=== PATIENT | male | born 1940 | race Caucasian/White ===

== ENCOUNTER 2017-02-23 10:32 | Emergency (ER) | payer MEDICARE, MEDICAID ==
[2017-02-23] MEDS ORDERED: Sodium Chloride 0.9% 500 ML IV ONE ×2 (13:15→13:26)
[2017-02-23 13:39] LABS: BASO # 0.1 K/uL (0.0-0.2); BASO % 1.8 % (0.0-2.0); EOS # 0.1 K/uL (0.0-0.7); EOS % 2.4 % (0.0-4.0); HEMATOCRIT 22.6 % (35.0-51.0); LYMPH # 0.9 K/uL (1.0-4.3); LYMPH % 30.1 % (20.0-40.0); MEAN CORPUSCULAR HEMOGLOBIN 22.8 pg (27.0-31.0); MEAN CORPUSCULAR HGB CONC 30.9 g/dL (33.0-37.0); MEAN PLATELET VOLUME 9.5 fL (7.2-11.7); MONO # 0.4 K/uL (0.0-0.8); MONO % 12.7 % (0.0-10.0); NRBC % 0.2 % (0.0-2.0); RED CELL DISTRIBUTION WIDTH 16.8 % (11.5-14.5); WHITE BLOOD COUNT 2.9 K/uL (4.8-10.8)
[2017-02-23 13:46] LABS: CHLORIDE 100 mmol/L (98-107); POTASSIUM 3.5 mmol/L (3.6-5.2); SODIUM 136 mmol/L (132-148)
[2017-02-23 13:48] LABS: BILIRUBIN,TOTAL 1.6 mg/dL (0.2-1.3); CARBON DIOXIDE 21 mmol/L (22-30); GFR AFRICAN-AMERICAN > 60
[2017-02-23 13:49] LABS: ALB/GLOB RATIO 1.1 (1.0-2.1); ALKALINE PHOSPHATASE 174 U/L (38-126); ALT/SGPT 48 U/L (21-72); AST/SGOT 59 U/L (17-59); BLOOD UREA NITROGEN 14 mg/dL (9-20); CALCIUM 9.1 mg/dl (8.6-10.4); GLUCOSE,RANDOM 128 mg/dL (75-110); TOTAL PROTEIN 6.8 g/dL (6.3-8.3)
[2017-02-23 13:52] LABS: MEAN CELL VOLUME 73.6 fL (80.0-94.0)
--- NOTE | 2017-02-23 15:14 | C.PDOC ---
History Of Present Illness 76 y/o male presents to the ED for evaluation of anemia. Pt was seen for routine visit in clinic last week, follow up today instructing patient to go to ED for evaluation of anemia; H&H 7.3 and 22.6. Pt denies known source of bleeding. Pt reports associated mild weakness. Denies vomiting, rectal bleed, SOB, chest pain, palpitations or any other complaints. Time Seen by Provider: 02/23/17 12:05 Chief Complaint (Nursing): Dizziness/Lightheaded History Per: Patient History/Exam Limitations: no limitations Onset/Duration Of Symptoms: Days Current Symptoms Are (Timing): Still Present Severity: Mild Recent travel outside of the [place]: No Past Medical History Reviewed: Historical Data, Nursing Documentation, Vital Signs Vital Signs: Last Vital Signs Temp 97.8 F 02/23/17 14:50 Pulse 83 02/23/17 14:50 Resp 20 02/23/17 14:50 BP 102/58 L 02/23/17 14:50 Pulse Ox 100 02/23/17 15:16 - Medical History PMH: Anemia, Anxiety, Benign Prostatic Hyperplasia, Diabetes, HTN, Hypercholesterolemia Family History: States: Unknown Family Hx - Social History Hx Tobacco Use: No Hx Alcohol Use: No Hx Substance Use: No - Immunization History Hx Tetanus Toxoid Vaccination: No Hx Influenza Vaccination: No Hx Pneumococcal Vaccination: No Review Of Systems Except As Marked, All Systems Reviewed And Found Negative. Constitutional: Positive for: Weakness. Negative for: Fever Cardiovascular: Negative for: Chest Pain, Palpitations Respiratory: Negative for: Shortness of Breath Gastrointestinal: Negative for: Vomiting, Hematochezia, Hematemesis Physical Exam - Physical Exam Appears: Non-toxic, No Acute Distress Skin: Warm, Dry, Pale Head: Atraumatic, Normacephalic Eye(s): bilateral: Conjunctiva Pale Nose: Normal Oral Mucosa: Moist Neck: Normal, Normal ROM, Supple Chest: Symmetrical Cardiovascular: Rhythm Regular, No Murmur Respiratory: Normal Breath Sounds, No Rales, No Rhonchi, No Wheezing Gastrointestinal/Abdominal: Normal Exam, Soft, No Tenderness Rectal: Normal Exam, Heme Negative Extremity: Normal ROM Extremity: Bilateral: Atraumatic Neurological/Psych: Oriented x3, Normal Speech ED Course And Treatment - Laboratory Results Result Diagrams: 02/23/17 13:32 05/09/17 13:32 O2 Sat by Pulse Oximetry: 100 (room air) Pulse Ox Interpretation: Normal Medical Decision Making Medical Decision Making: Labs show anemia. Spoke with Dr. Meléndez from [facility] . States the patient was c/o nose bleed this week as well as slightly dizzy this morning. Disposition Discussed With DrDamian: Juventino Mercer Counseled Patient/Family Regarding: Studies Performed, Diagnosis - Disposition Disposition: HOME/ ROUTINE Disposition Time: 15:48 Condition: GUARDED - POA Present On Arrival: None - Clinical Impression Clinical Impression: Dizziness, Anemia - Scribe Statement The provider has reviewed the documentation as recorded by the Long Enriquez Provider Attestation: All medical record entries made by the Long were at my direction and personally dictated by me. I have reviewed the chart and agree that the record accurately reflects my personal performance of the history, physical exam, medical decision making, and the department course for this patient. I have also personally directed, reviewed, and agree with the discharge instructions and disposition. Decision To Admit - Pt Status Changed To: Hospital Disposition Of: Observation - InPatient: Physician Admission Certification: I certify that this patient requires 2 or more midnights of care for the following reason:: symptomatic anemia, will transfuse. - . Bed Request Type: Regular Patient Diagnosis: Dizziness, Anemia
[2017-02-23 16:18] VITALS: RESP 18
[2017-02-23 16:20] VITALS: BP 118/63; PULSE 86; TEMP 98.3; O2SAT 98
== END 2017-02-23 17:22 | disposition left against medical advice (07) ==
LOC: C.ER 10:32 → UNDOADMOB 15:51 → C.9E 15:51 → C.ER 17:22
DX: D64.9 Anemia, unspecified (principal); R42 Dizziness and giddiness
CPT/HCPCS: 80053; 82948; 85025; 86850; 86900; 86920; 99285; J7040

== ENCOUNTER 2017-03-26 06:34 | Inpatient (IN) | payer OTHER ==
[2017-03-26 07:55] LABS: BASO # 0.1 K/uL (0.0-0.2); BASO % 2.8 % (0.0-2.0); EOS # 0.4 K/uL (0.0-0.7); EOS % 13.9 % (0.0-4.0); HEMATOCRIT 24.6 % (35.0-51.0); LYMPH # 0.8 K/uL (1.0-4.3); LYMPH % 26.8 % (20.0-40.0); MEAN CELL VOLUME 72.8 fL (80.0-94.0); MEAN CORPUSCULAR HEMOGLOBIN 22.6 pg (27.0-31.0); MEAN CORPUSCULAR HGB CONC 31.1 g/dL (33.0-37.0); MEAN PLATELET VOLUME 8.9 fL (7.2-11.7); MONO # 0.4 K/uL (0.0-0.8); NRBC % 0.1 % (0.0-2.0); RED CELL DISTRIBUTION WIDTH 23.1 % (11.5-14.5); WHITE BLOOD COUNT 3.1 K/uL (4.8-10.8)
[2017-03-26 08:02] LABS: INR 1.4
[2017-03-26 08:05] LABS: CHLORIDE 102 mmol/L (98-107); POTASSIUM 3.6 mmol/L (3.6-5.2); SODIUM 137 mmol/L (132-148)
[2017-03-26 08:07] LABS: GFR AFRICAN-AMERICAN > 60
[2017-03-26 08:08] LABS: ALKALINE PHOSPHATASE 207 U/L (38-126); ALT/SGPT 46 U/L (21-72); AST/SGOT 61 U/L (17-59); BILIRUBIN,TOTAL 1.6 mg/dL (0.2-1.3); BLOOD UREA NITROGEN 10 mg/dL (9-20); CALCIUM 9.1 mg/dl (8.6-10.4); CARBON DIOXIDE 21 mmol/L (22-30); GLUCOSE,RANDOM 187 mg/dL (75-110); TOTAL PROTEIN 6.6 g/dL (6.3-8.3)
[2017-03-26 08:17] LABS: RBC URINE 1 /hpf (0-3); URINE BACTERIA RARE (<OCC); URINE BILIRUBIN NEGATIVE (NEGATIVE); URINE BLOOD NEGATIVE (NEGATIVE); URINE COLOR Yellow (YELLOW); URINE GLUCOSE (UA) NORMAL (Normal); URINE KETONE NEGATIVE (NEGATIVE); URINE LEUKOCYTE ESTERASE NEG Leu/uL (Negative); URINE PROTEIN NEGATIVE (NEGATIVE); WBC URINE 2 /hpf (0-5)
[2017-03-26 08:25] LABS: IRON 13 ug/dL (49-181)
--- NOTE | 2017-03-26 08:26 | C.PDOC ---
History Of Present Illness Patient is a 76 y/o male sent to the ED by PMD for low hemoglobin level (7 g/dl) . Pt was seen here last month with similar complaints, and hemoglobin at that time was 7 g/dl as well. Pt had declined to be admitted, and did not follow up with his PMD at that time. Pt states that he felt weak, and dizzy 3 weeks ago, and had fell at that time. Denies any head injury, or LOC. Otherwise, denies any weight loss, abdominal pain, lightheadedness, dizziness, headache, fever, or any other physical complaints at this time. Time Seen by Provider: 03/26/17 07:17 Chief Complaint (Nursing): Abnormal Labs History Per: Patient History/Exam Limitations: no limitations Onset/Duration Of Symptoms: Days Current Symptoms Are (Timing): Still Present Reports Recently: Treated By A Physician Recent travel outside of the [place]: No Additional History Per: Patient, Prior Records Past Medical History Reviewed: Historical Data, Nursing Documentation, Vital Signs Vital Signs: Last Vital Signs Temp 97.9 F 03/26/17 15:34 Pulse 98 H 03/26/17 15:34 Resp 20 03/26/17 15:34 BP 121/65 03/26/17 15:34 Pulse Ox 98 03/26/17 16:53 - Medical History PMH: Anemia, Anxiety, Benign Prostatic Hyperplasia, Diabetes, HTN, Hypercholesterolemia Family History: States: Unknown Family Hx - Social History Hx Tobacco Use: No Hx Alcohol Use: Yes Hx Substance Use: No Review Of Systems Except As Marked, All Systems Reviewed And Found Negative. Constitutional: Negative for: Fever, Chills Cardiovascular: Negative for: Chest Pain, Palpitations, Light Headedness Respiratory: Negative for: Shortness of Breath Gastrointestinal: Negative for: Nausea, Vomiting, Abdominal Pain Neurological: Negative for: Headache, Dizziness Physical Exam - Physical Exam Appears: Non-toxic, No Acute Distress Skin: Normal Color, Warm, Dry Head: Atraumatic, Normacephalic Eye(s): bilateral: Normal Inspection Neck: Supple Chest: Symmetrical Cardiovascular: Rhythm Regular Respiratory: Normal Breath Sounds, No Rales, No Rhonchi, No Wheezing Gastrointestinal/Abdominal: Soft, No Tenderness Extremity: Normal ROM Neurological/Psych: Oriented x3, Normal Speech, Normal Cognition ED Course And Treatment - Laboratory Results Result Diagrams: 03/26/17 07:47 03/26/17 07:47 ECG: Interpreted By Me, Viewed By Me ECG Rhythm: Sinus Rhythm ECG Interpretation: No Acute Changes Interpretation Of ECG: Low voltage QRS. Rate From EC (bpm) O2 Sat by Pulse Oximetry: 98 (on RA) Pulse Ox Interpretation: Normal Progress Note: Labs, CXR, EKG ordered and reviewed. On re-exam, pt is resting comfortably, no physical complaints at this time. Medical Decision Making Medical Decision Making: Pt remained stable in the ED Case discussed with dr Mccabe Plan transfusion / observation Disposition - Disposition Disposition: HOSPITALIZED Disposition Time: 10:45 Condition: GOOD - Clinical Impression Clinical Impression: Symptomatic anemia - Scribe Statement The provider has reviewed the documentation as recorded by the Scribe Marco Mercer All medical record entries made by the Hamiltonibe were at my direction and personally dictated by me. I have reviewed the chart and agree that the record accurately reflects my personal performance of the history, physical exam, medical decision making, and the department course for this patient. I have also personally directed, reviewed, and agree with the discharge instructions and disposition.
[2017-03-26 09:12] LABS: FOLATE 6.1 ng/mL
--- NOTE | 2017-03-26 10:23 | RAD ---
HISTORY: GI Bleeding COMPARISON: 10/12/2013 TECHNIQUE: Chest PA and lateral FINDINGS: LUNGS: Patchy right lower lobe opacity, possibly early infiltrate. Followup advised. PLEURA: No significant pleural effusion identified. No pneumothorax apparent. CARDIOVASCULAR: Normal. OSSEOUS STRUCTURES: No significant abnormalities. VISUALIZED UPPER ABDOMEN: Normal. OTHER FINDINGS: None. IMPRESSION: Possible right lower lobe infiltrate. Followup advised.
[2017-03-26] MEDS ORDERED: Ferric Sodium Gluconat Complex 62.5 mg/5 ml Vial IVPB SCH (11:15)
[2017-03-26] MEDS ORDERED: Azithromycin 500 MG in Sodium Chloride 0.9% 250 ML IVPB STA (11:17)
[2017-03-26] MEDS ORDERED: Azithromycin 500 MG in Sodium Chloride 0.9% 250 ML IVPB SCH (12:00)
[2017-03-26] MEDS: Ferric Sodium Gluconat Complex 62.5 mg/5 ml Vial IVPB SCH (13:07)
[2017-03-26] MEDS: Dextrose 5%/0.9% NS 1,000 ML IV SCH ×2 (14:05→22:30)
[2017-03-26] MEDS: Albuterol 0.042% Inhal Sol (1.25 mg/3 mL) UD INH SCH ×2 (14:59→20:53)
[2017-03-26 15:27] LABS: CARCINOEMBRYONIC ANTIGEN 2.4 ng/mL (0-3.0)
[2017-03-26 15:30] LABS: CA 19-9 77.8 U/mL (0-37)
[2017-03-26] MEDS: Azithromycin 500 MG in Sodium Chloride 0.9% 250 ML IVPB SCH (16:02)
[2017-03-27] MEDS: Albuterol 0.042% Inhal Sol (1.25 mg/3 mL) UD INH SCH ×4 (01:18→19:25)
[2017-03-27] MEDS ORDERED: Phytonadione 10 mg/ml Inj (Adult) SC STA (08:28)
[2017-03-27 09:20] LABS: HEMATOCRIT 25.7 % (35.0-51.0); MEAN CELL VOLUME 73.4 fL (80.0-94.0); MEAN CORPUSCULAR HEMOGLOBIN 23.3 pg (27.0-31.0); MEAN CORPUSCULAR HGB CONC 31.8 g/dL (33.0-37.0); RED CELL DISTRIBUTION WIDTH 22.3 % (11.5-14.5); WHITE BLOOD COUNT 2.9 K/uL (4.8-10.8)
[2017-03-27 09:21] LABS: BASO % 1.1 % (0.0-2.0); EOS % 4.7 % (0.0-4.0); LYMPH % 22.6 % (20.0-40.0); MONO % 10.6 % (0.0-10.0)
[2017-03-27 09:22] LABS: LYMPH # 22.6 K/uL (1.0-4.3); MONO # 10.6 K/uL (0.0-0.8)
[2017-03-27 09:23] LABS: BASO # 1.1 K/uL (0.0-0.2); EOS # 4.7 K/uL (0.0-0.7)
[2017-03-27] MEDS: Ferric Sodium Gluconat Complex 62.5 mg/5 ml Vial IVPB SCH (09:34)
[2017-03-27 12:30] LABS: CARCINOEMBRYONIC ANTIGEN 2.5 ng/mL (0-3.0)
[2017-03-27 12:34] LABS: CA 19-9 81.4 U/mL (0-37)
[2017-03-27] MEDS: Azithromycin 500 MG in Sodium Chloride 0.9% 250 ML IVPB SCH (13:09)
[2017-03-27] MEDS: Dextrose 5%/0.9% NS 1,000 ML IV SCH ×3 (13:13→22:24)
--- NOTE | 2017-03-27 18:22 | CP.PCM.HP ---
History of Present Illness - History of Present Illness History of Present Illness: Cheif complain: abnormal labs HPI: Patient is a 76 y/o male sent to the ED by PMD for low hemoglobin level (7 g/dl). Pt was seen here last month with similar complaints, and hemoglobin at that time was 7 g/dl as well. Pt had declined to be admitted, and did not follow up with his PMD at that time. Pt states that he felt weak, and dizzy 3 weeks ago, and had fell at that time. Denies any head injury, or LOC. Otherwise, denies any weight loss, abdominal pain, lightheadedness, dizziness, headache, fever, or any other physical complaints at this time. Present on Admission - Present on Admission Any Indicators Present on Admission: Yes History of DVT/PE: No History of Uncontrolled Diabetes: No Urinary Catheter: No Review of Systems - Review of Systems Systems not reviewed;Unavailable: Acuity of Condition - Constitutional Constitutional: Fatigue, Lethargy, Malaise - EENT Eyes: absent: As Per HPI, Blind Spots, Blurred Vision, Change in Vision, Decreased Night Vision, Diplopia, Discharge, Dry Eye, Exophthalmos, Floaters, Irritation, Itchy Eyes, Loss of Peripheral Vision, Pain, Photophobia, Requires Corrective Lenses, Sees Flashes, Spots in Vision, Tunnel Vision, Other Visual Disturbances, Loss of Vision, Other Nose/Mouth/Throat: absent: As Per HPI, Epistaxis, Nasal Congestion, Nasal Discharge, Nasal Obstruction, Nasal Trauma, Nose Pain, Post Nasal Drip, Sinus Pain, Sinus Pressure, Bleeding Gums, Change in Voice, Dental Pain, Dry Mouth, Dysphagia, Halitosis, Hoarsness, Lip Swelling, Mouth Lesions, Mouth Pain, Odynophagia, Sore Throat, Throat Swelling, Tongue Swelling, Facial Pain, Neck Pain, Neck Mass, Other - Cardiovascular Cardiovascular: Dyspnea on Exertion - Respiratory Respiratory: Dyspnea on Exertion - Gastrointestinal Gastrointestinal: Abdominal Pain - Genitourinary Genitourinary: absent: As Per HPI, Change in Urinary Stream, Difficulty Urinating, Dysuria, Flank Pain, Hematuria, Pyuria, Nocturia, Urinary Incontinence, Urinary Frequency, Urinary Hesitance, Urinary Urgency, Voiding Freq/Small Amts, Freq UTI, Hx Renal/Bladder Calculi, Hx /Renal Surgery, Bladder Distension, Other - Neurological Neurological: Dizziness. absent: As Per HPI, Abnormal Gait, Abnormal Hearing, Abnormal Movements, Abnormal Speech, Behavioral Changes, Burning Sensations, Confusion, Convulsions, Disequilibrium, Numbness, Focal Weakness, Frequent Falls , Headaches, Lack of Coordination, Loss of Vision, Memory Loss, Paresthesias, Radicular Pain, Restless Legs, Sensory Deficit, Syncope, Tingling, Tremor, Vertigo, Weakness, Other Visual Disturbances, Other - Psychiatric Psychiatric: absent: As Per HPI, Abnormal Sleep Pattern, Anhedonia, Anxiety, Auditory Hallucinations, Behavioral Changes, Change in Appetite, Change in Libido, Confusion, Depression, Difficulty Concentrating, Hallucinations, Homicidal Ideation, Hopelessness, Irritability, Memory Loss, Mood Swings, Panic Attacks, Paranoia, Suicidal Ideation, Visual Hallucinations, Tactile Hallucinations, Other - Endocrine Endocrine: absent: As Per HPI, Change in Body Appearance, Change in Libido, Cold Intolorance, Deepening of Voice, Excessive Sweating, Fatigue, Flushing, Heat Intolorance, Increase in Ring/Shoe/Hat Size, Palpitations, Polydipsia, Polyphagia, Polyuria, Other - Hematologic/Lymphatic Hematologic: absent: As Per HPI, Easy Bleeding, Easy Bruising, Lymphadenopathy, Other Past Patient History - Infectious Disease Hx of Infectious Diseases: None - Past Medical History & Family History Past Medical History?: No - Past Social History Smoking Status: Former Smoker - CARDIAC Hx Hypercholesterolemia: Yes Hx Hypertension: Yes - HEENT Hx HEENT Problems: Yes Hx Epistaxis: Yes - ENDOCRINE/METABOLIC Hx Endocrine Disorders: Yes Hx Diabetes Mellitus Type 2: Yes - HEMATOLOGICAL/ONCOLOGICAL Hx Anemia: Yes - MUSCULOSKELETAL/RHEUMATOLOGICAL Hx Falls: No - GENITOURINARY/GYNECOLOGICAL Hx Genitourinary Disorders: Yes Hx Prostate Problems: Yes - PSYCHIATRIC Hx Anxiety: Yes Hx Substance Use: No - SURGICAL HISTORY Hx Surgeries: No Other/Comment: Prostate sx - ANESTHESIA Hx Anesthesia: No Meds Allergies/Adverse Reactions: Allergies Allergy/AdvReac Type Severity Reaction Status Date / Time No Known Allergies Allergy Verified 03/26/17 06:48 Physical Exam - Constitutional Additional comments: elderly male who is weak, pale - Head Exam Head Exam: ATRAUMATIC, NORMAL INSPECTION, NORMOCEPHALIC - Eye Exam Eye Exam: EOMI, Normal appearance, PERRL Pupil Exam: NORMAL ACCOMODATION, PERRL - Respiratory Exam Respiratory Exam: NORMAL BREATHING PATTERN Additional comments: positive crackles in right base - Cardiovascular Exam Cardiovascular Exam: REGULAR RHYTHM - GI/Abdominal Exam GI & Abdominal Exam: Hyperactive Bowel Sounds, Tenderness Additional comments: periumbilical area tenderness - Extremities Exam Extremities exam: Positive for: normal inspection - Back Exam Back exam: NORMAL INSPECTION Results - Vital Signs Recent Vital Signs: Last Vital Signs Temp 98.2 F 03/27/17 15:10 Pulse 99 H 03/27/17 15:10 Resp 20 03/27/17 15:10 BP 127/69 03/27/17 15:10 Pulse Ox 96 03/27/17 15:10 - Labs Result Diagrams: 03/27/17 08:41 03/26/17 07:47 Assessment & Plan (1) Right lower lobe pneumonia Status: Acute (2) Symptomatic anemia Assessment and Plan: admit GI consult FOBT Status: Acute (3) Dizziness Status: Acute
--- NOTE | 2017-03-27 18:22 | CP.PCM.PN ---
Subjective - Date & Time of Evaluation Date of Evaluation: 03/27/17 Time of Evaluation: 21:45 - Subjective Subjective: Pt seen and examined, still c/o dyspnea on exertion, s/p blood transfusion, GI consult requested Objective - Vital Signs/Intake and Output Vital Signs (last 24 hours): Temp Pulse Resp BP Pulse Ox 98.2 F 99 H 20 127/69 96 03/27/17 15:10 03/27/17 15:10 03/27/17 15:10 03/27/17 15:10 03/27/17 15:10 Intake and Output: 03/27/17 03/27/17 06:59 18:59 Intake Total 980 Balance 980 - Medications Medications: Current Medications Albuterol Sulfate (Albuterol 0.042% Inhal Sasha (1.25mg/3ml) Ud) 1.25 mg INH RQ6 [facility] Last Admin: 03/27/17 12:59 Dose: Not Given Bisacodyl (Dulcolax) 10 mg PO ONCE ONE Stop: 03/28/17 17:01 Ferric Sodium Gluconate Complex (Ferrlecit) 125 mg IVPB DAILY [facility] Stop: 04/02/17 10:01 Last Admin: 03/27/17 09:34 Dose: 125 mg Dextrose/Sodium Chloride (Dextrose 5%/0.9% Ns 1000 Ml) 1,000 mls @ 100 mls/hr IV .Q10H [facility] Last Admin: 03/27/17 17:59 Dose: Not Given Ceftriaxone Sodium 1 gm/ (Sodium Chloride) 100 mls @ 100 mls/hr IVPB Q24H [facility] Last Admin: 03/27/17 14:02 Dose: 100 mls/hr Azithromycin 500 mg/ Sodium (Chloride) 250 mls @ 250 mls/hr IVPB Q24H [facility] Last Admin: 03/27/17 13:09 Dose: 250 mls/hr Pantoprazole Sodium (Protonix Inj) 40 mg IVP Q12H [facility] Last Admin: 03/27/17 11:42 Dose: 40 mg Polyethylene Glycol/Electrolytes (Golytely) 4,000 ml PO ONCE ONE Stop: 03/28/17 11:01 - Labs Labs: PT 16.4 SECONDS (9.7-12.2) H 03/26/17 07:47 INR 1.4 03/26/17 07:47 APTT 36 SECONDS (21-34) H 03/26/17 07:47 - Constitutional Appears: No Acute Distress - Head Exam Head Exam: NORMAL INSPECTION - Eye Exam Eye Exam: EOMI, Scleral icterus - ENT Exam ENT Exam: Mucous Membranes Moist, Normal Exam - Respiratory Exam Respiratory Exam: Clear to Ausculation Bilateral, NORMAL BREATHING PATTERN - Cardiovascular Exam Cardiovascular Exam: REGULAR RHYTHM, +S1, +S2. absent: Murmur - GI/Abdominal Exam GI & Abdominal Exam: Tenderness, Hyperactive Bowel Sounds - Rectal Exam Rectal Exam: NORMAL INSPECTION Assessment and Plan (1) Right lower lobe pneumonia Status: Acute (2) Symptomatic anemia Status: Acute (3) Dizziness Status: Acute
[2017-03-27] MEDS ORDERED: (Novolin R) Insulin Human Regular 100 units/ml vial SC SCH (22:00)
[2017-03-27] MEDS: (Novolog) Insulin Aspart, Recombinant 100 u/ml 10 ml vial SC SCH (22:18)
[2017-03-28] MEDS: Albuterol 0.042% Inhal Sol (1.25 mg/3 mL) UD INH SCH ×4 (01:22→19:17)
[2017-03-28] MEDS: (Novolog) Insulin Aspart, Recombinant 100 u/ml 10 ml vial SC SCH ×4 (08:04→22:03)
[2017-03-28] MEDS: Dextrose 5%/0.9% NS 1,000 ML IV SCH (09:18)
[2017-03-28] MEDS: Ferric Sodium Gluconat Complex 62.5 mg/5 ml Vial IVPB SCH (09:53)
[2017-03-28] MEDS ORDERED: Peg-Electrolyte Oral Soln 4L (Golytely) PO ONE (11:00)
--- NOTE | 2017-03-28 12:04 | PN ---
DATE: 03/28/2017 LOCATION: 651, bed B. SUBJECTIVE: This is a [id number] male seen and examined at rounds today without significant clinic al changes. Appears to be awake, alert, oriented with complaint of some blurred vision and mild gene ralized tenderness. No mass or organomegaly. No rebound tenderness or guarding by physical examinat ion. The entire chart is reviewed, including but not limited to the most recent lab and radiology st udy results, current and the previous medication list, current and the previous medical events, and t he patient still has hypochromic microcytic anemia with pancytopenia with blood glucose level of 212 with increased CA 19-9 to 81.4, but normal CEA level and normal alpha fetoprotein. The entire chart is reviewed, and the entire case is discussed and reviewed with the staff on the jay or. PHYSICAL EXAMINATION: GENERAL: A 76-year-old male, awake, alert. VITAL SIGNS: Afebrile with pulse of 96, respiratory rate 20-22, blood pressure of 130/64. HEENT: Showed pale, dry oral mucoid membrane. Nonicteric sclerae. LUNGS: Few scattered crepitations, decreased air entry at bases. HEART: Positive S1 and S2. ABDOMEN: Soft. Bowel sounds are present. No mass or organomegaly. No rebound tenderness or guardi ng. EXTREMITIES: Without significant edema, clubbing, or cyanosis. NEUROLOGIC: No reported new neurologic deficits, sensory or motor. IMPRESSION: 1. Anemia, to rule out gastrointestinal blood loss, upper versus lower. 2. Rule out occult gastrointestinal malignancy. 3. Known history of, but not limited to hypertension, hyperlipidemia, diabetes mellitus, and benign prostatic hypertrophy. SUGGESTION: 1. I agree with your plan. 2. Blood transfusion to keep hemoglobin 10 gram percent. 3. Abdominal ultrasound. 4. Continue current IV antibiotic, as the chest x-ray showed possible right lower lobe infiltrate. 5. Further recommendation to follow after endoscopic evaluation of the GI tract. Karin Jesus MD cc: 14 TT: 03/28/2017 12:04:01 Confirmation # [id number] Dictation # [id number] [email or web address]
[2017-03-28] MEDS: Azithromycin 500 MG in Sodium Chloride 0.9% 250 ML IVPB SCH (13:23)
[2017-03-28] MEDS ORDERED: Bisacodyl 5mg EC Tab PO ONE (17:00)
--- NOTE | 2017-03-28 23:13 | CP.PCM.PN ---
Subjective - Date & Time of Evaluation Date of Evaluation: 03/28/17 Time of Evaluation: 10:00 - Subjective Subjective: Pt seen and evalauted, improved clinincally will continue to manage medically repeat CBC Objective - Vital Signs/Intake and Output Vital Signs (last 24 hours): Temp Pulse Resp BP Pulse Ox 98.3 F 109 H 20 124/69 96 03/28/17 22:07 03/28/17 22:07 03/28/17 22:07 03/28/17 22:07 03/28/17 22:07 Intake and Output: 03/28/17 03/29/17 18:59 06:59 Intake Total 1080 2600 Balance 1080 2600 - Medications Medications: Current Medications Albuterol Sulfate (Albuterol 0.042% Inhal Sasha (1.25mg/3ml) Ud) 1.25 mg INH RQ6 [facility] Last Admin: 03/28/17 19:17 Dose: Not Given Ferric Sodium Gluconate Complex (Ferrlecit) 125 mg IVPB DAILY [facility] Stop: 04/02/17 10:01 Last Admin: 03/28/17 09:53 Dose: 125 mg Dextrose/Sodium Chloride (Dextrose 5%/0.9% Ns 1000 Ml) 1,000 mls @ 100 mls/hr IV .Q10H [facility] Last Admin: 03/28/17 09:18 Dose: 100 mls/hr Ceftriaxone Sodium 1 gm/ (Sodium Chloride) 100 mls @ 100 mls/hr IVPB Q24H [facility] Last Admin: 03/28/17 16:00 Dose: 100 mls/hr Azithromycin 500 mg/ Sodium (Chloride) 250 mls @ 250 mls/hr IVPB Q24H [facility] Last Admin: 03/28/17 13:23 Dose: 250 mls/hr Insulin Aspart (Novolog) 0 unit SC ACHS [facility] PRN Reason: Protocol Last Admin: 03/28/17 22:03 Dose: Not Given Lorazepam (Ativan) 0.5 mg PO BID PRN PRN Reason: Anxiety Last Admin: 03/27/17 22:18 Dose: 0.5 mg Pantoprazole Sodium (Protonix Inj) 40 mg IVP Q12H [facility] Last Admin: 03/28/17 22:45 Dose: 40 mg Zolpidem Tartrate (Ambien) 5 mg PO HS PRN PRN Reason: Insomnia Last Admin: 03/28/17 22:45 Dose: 5 mg - Labs Labs: PT 16.4 SECONDS (9.7-12.2) H 03/26/17 07:47 INR 1.4 03/26/17 07:47 APTT 36 SECONDS (21-34) H 03/26/17 07:47 - Constitutional Appears: Well - Head Exam Head Exam: ATRAUMATIC, NORMAL INSPECTION, NORMOCEPHALIC - Eye Exam Eye Exam: EOMI, Normal appearance, PERRL, Scleral icterus Pupil Exam: NORMAL ACCOMODATION, PERRL - Respiratory Exam Respiratory Exam: Clear to Ausculation Bilateral, NORMAL BREATHING PATTERN - Cardiovascular Exam Cardiovascular Exam: REGULAR RHYTHM, +S1, +S2. absent: Murmur - GI/Abdominal Exam GI & Abdominal Exam: Soft, Normal Bowel Sounds. absent: Tenderness - Rectal Exam Rectal Exam: Deferred Assessment and Plan (1) Right lower lobe pneumonia Status: Acute (2) Symptomatic anemia Status: Acute (3) Anemia Status: Acute
[2017-03-29] MEDS: Dextrose 5%/0.9% NS 1,000 ML IV SCH ×3 (01:21→17:48)
[2017-03-29] MEDS: Albuterol 0.042% Inhal Sol (1.25 mg/3 mL) UD INH SCH ×4 (01:28→20:00)
--- NOTE | 2017-03-29 06:58 | PN ---
DATE: 03/26/2017 LOCATION: 651, bed B. This is a 76-year-old male seen and examined in rounds today, seen for GI consultation on 03/26/2017 as requested by the admitting medical team. Complaining of passing excessive amount of gas with dysp epsia and nausea and reported rectal bleeding before. The entire chart is reviewed, including but not limited to the most recent lab and radiology study re sults, current and previous medication list, current and the previous medical events. Case discussed at length with the staff. The patient had blood transfusions ____REPORTED ALLERGY. LABORATORY DATA: Most recent lab results showed hemoglobin of 7.9, hematocrit 24.6 with low indices, highly suggestive of hypochromic microcytic anemia with low white blood cells 3.1, low platelet of 1 13 indicative of pancytopenia. Post blood transfusion results still pending. PT reported to be 16.4 with PTT elevated to 36 with low CO2 content to 21 indicative of metabolic aci dosis with low iron. Total bilirubin elevated to 1.6 with AST mildly elevated to 61 with low albumin 3.2. Chest x-ray done yesterday. Report and films seen with evidence of possible right lower lobe infiltr ate. PHYSICAL EXAMINATION: GENERAL: A 76-year-old male. VITAL SIGNS: Afebrile with heart rate of 96, respiratory rate 20-22, blood pressure of 120/64. HEENT: Showed pale, dry oral mucoid membrane. Nonicteric sclerae. LUNGS: Few scattered crepitation, decreased air entry at bases. HEART: Positive S1 and S2 with increased rate. ABDOMEN: Soft. Bowel sounds are present with slight generalized tenderness. No mass or organomegal y. No rebound tenderness or guarding. RECTAL: The patient refused. EXTREMITIES: Mild lower extremities edematous changes. No clubbing or cyanosis. NEUROLOGIC: No reported new neurological deficits, sensory or amount. IMPRESSION: 1. Symptomatic anemia, to rule out gastrointestinal blood loss, upper versus lower. 2. Rule out occult gastrointestinal malignancy. 3. Pancytopenia of unclear etiology. 4. Metabolic acidosis with malnutrition and hypoalbuminemia. 5. Tachycardia, most likely secondary to his hypochromic microcytic anemia. 6. Known history of benign prostatic hypertrophy, hyperlipidemia, hypertension, diabetes mellitus. 7. Known history of alcohol excessive intake with elevated AST and mildly elevated total bilirubin w ith mild jaundice, most likely secondary to alcoholic liver disease. SUGGESTION: 1. Agree with your plan. 2. Endoscopic evaluation of the upper and lower GI tract after full evaluation and preparation. 3. Cancer markers. 4. Correct any underlying coagulopathy. The patient will benefit from vitamin K prior to his upper endoscopy. 5. Further recommendation and evaluation to follow, and hematology/oncology consult to [place] in [place]. Case is to be discussed again with the family members. Karin Jesus MD cc: 14 TT: 03/27/2017 08:45:11 Confirmation # [id number] Dictation # [id number]
--- NOTE | 2017-03-29 06:59 | CON ---
DATE: 03/26/[address] Karin Jesus to Dr. Santhosh Mccabe. I was called for GI consultation by the admitting MD. The patient is seen and fully examined on 07/04 as requested by the admitting medical staff. The entire chart is reviewed, including but not li mited to the most recent lab and radiology study results, current and the previous medication lists, current and the previous medical events, allergy to medication list, as well as all the available cur rent and the previous medical records. Case was discussed at length with the staff on the floor. HISTORY OF PRESENT ILLNESS: This is a 76-year-old male who was admitted to the hospital through the Emergency Room after being sent by his primary MD due to low hemoglobin, reported to be 7, with previ ous history of subsequent drop of hemoglobin and hematocrit recently, with the main complaint of gene ralized weakness and malaise, dizziness, poor oral intake secondary to above. No actual chest pain. No reported excessive body weight loss, significant shortness of breath, or palpitation. The patient was admitted with underlying diagnosis of symptomatic anemia. PAST MEDICAL HISTORY: Including but not limited to: 1. Hypertension. 2. Diabetes mellitus. 3. Peptic ulcer disease. 4. Hyperlipidemia. 5. Benign prostatic hypertrophy. 6. The patient has history of anxiety syndrome. 7. Recent history of anemia. FAMILY HISTORY: Unknown. SOCIAL HISTORY: Positive for alcohol intake, but denies cigarette-smoking. CURRENT MEDICATIONS: Medication lists were reviewed. ALLERGY TO MEDICATION: Unclear. LABORATORY DATA: Initial blood workup at the time of the admission showed pancytopenia with white bl ood cells of 3.1, hemoglobin 7.6, hematocrit 24.6 with low platelets to 113 with low CO2 content to 2 1 indicative of metabolic acidosis, but elevated blood glucose level to 187. PHYSICAL EXAMINATION: GENERAL: A 76-year-old male appears to be awake, alert, but mildly pale with pulse of 94. VITAL SIGNS: Afebrile with respiratory rate 18-20, blood pressure of 124/76. HEENT: Showed pale, dry oral mucoid membrane, nonicteric sclerae. LYMPH NODES: No lymphadenitis or lymphadenopathy. LUNGS: Few scattered crepitation with few rhonchi bilaterally and decreased air entry slightly at ba ses. HEART: Positive S1 and S2 with increased rate. ABDOMEN: Soft with generalized mild tenderness. Bowel sounds are present, but hypoactive with sligh t abdominal distention. No mass or organomegaly. No rebound tenderness or guarding. RECTAL: The patient refused. EXTREMITIES: Slight lower extremities edematous changes. No clubbing or cyanosis. NEUROLOGIC: No reported new neurological deficit, sensory or motor since admission. IMPRESSION: 1. Symptomatic anemia. 2. Rule out gastrointestinal blood loss, upper versus lower. 3. Rule out occult gastrointestinal malignancy. 4. Pancytopenia of unclear etiology. It has to be mentioned that it is not clear at this point if t he patient has any kind of radiation or chemotherapy for any specific reason, as the patient is unab le to give this information clearly. 5. Known history of severe anxiety syndrome. 6. Multiple past medical history again including, but not limited to benign prostatic hypertrophy, h ypertension, diabetes mellitus, hyperlipidemia. 7. Alcohol intake was reported. Elevated liver function tests at some point. SUGGESTION: 1. I agree with your plan. 2. Rehydration. 3. Oncology/hematology consult. 4. Cancer markers including PSA and CEA. 5. Guaiac all the stools daily x 3. 6. Proton pump inhibitors IV. 7. Endoscopic evaluation of the GI tract after adequate preparation. 8. Sectional abdominal and pelvic CAT scan. 9. Further recommendations to follow. Thank you for letting me participate in your patient's case management. Karin Jesus MD cc: 14 TT: 03/28/2017 08:05:41 Confirmation # [id number] Dictation # [id number] [email or web address]
[2017-03-29] MEDS: (Novolog) Insulin Aspart, Recombinant 100 u/ml 10 ml vial SC SCH ×4 (08:02→22:06)
[2017-03-29] MEDS: Ferric Sodium Gluconat Complex 62.5 mg/5 ml Vial IVPB SCH (09:15)
[2017-03-29] MEDS ORDERED: Propofol 10 mg/ml Inj (20 ML) ONE (10:52)
[2017-03-29] MEDS ORDERED: Glucagon Recombinant 1 mg Inj ONE (11:13)
[2017-03-29] MEDS: Magnesium Citrate Oral SOL (300 ml) PO SCH ×2 (13:17→17:48)
[2017-03-29] MEDS: Azithromycin 500 MG in Sodium Chloride 0.9% 250 ML IVPB SCH (13:17)
--- NOTE | 2017-03-29 14:31 | CARD ---
APPROVED REPORT EKG Measurement Heart [id number] <Conclusion> Normal sinus rhythm Low voltage QRS Cannot rule out Anterior infarct, age undetermined Abnormal ECG
[2017-03-29] MEDS ORDERED: Bisacodyl 5mg EC Tab PO ONE (16:00)
[2017-03-29 17:00] LABS: HEMATOCRIT 25.9 % (35.0-51.0); MEAN CELL VOLUME 74.7 fL (80.0-94.0); MEAN CORPUSCULAR HGB CONC 30.8 g/dL (33.0-37.0); MEAN PLATELET VOLUME 8.6 fL (7.2-11.7); RED CELL DISTRIBUTION WIDTH 23.4 % (11.5-14.5); WHITE BLOOD COUNT 5.3 K/uL (4.8-10.8)
[2017-03-29 17:15] LABS: CHLORIDE 110 mmol/L (98-107); POTASSIUM 3.1 mmol/L (3.6-5.2); SODIUM 140 mmol/L (132-148)
[2017-03-29 17:16] LABS: BLOOD UREA NITROGEN 4 mg/dL (9-20); CARBON DIOXIDE 19 mmol/L (22-30); GFR AFRICAN-AMERICAN > 60
[2017-03-29 17:17] LABS: CALCIUM 8.2 mg/dl (8.6-10.4); GLUCOSE,RANDOM 176 mg/dL (75-110)
--- NOTE | 2017-03-29 22:51 | CP.PCM.PN ---
Subjective - Date & Time of Evaluation Date of Evaluation: 03/29/17 Time of Evaluation: 21:40 Objective - Vital Signs/Intake and Output Vital Signs (last 24 hours): Temp Pulse Resp BP Pulse Ox 97.7 F 109 H 20 101/60 94 L 03/29/17 15:08 03/29/17 15:30 03/29/17 15:08 03/29/17 15:08 03/29/17 15:08 Intake and Output: 03/29/17 03/30/17 18:59 06:59 Intake Total 1300 Balance 1300 - Medications Medications: Current Medications Albuterol Sulfate (Albuterol 0.042% Inhal Sasha (1.25mg/3ml) Ud) 1.25 mg INH RQ6 [facility] Last Admin: 03/29/17 20:00 Dose: 1.25 mg Ferric Sodium Gluconate Complex (Ferrlecit) 125 mg IVPB DAILY [facility] Stop: 04/02/17 10:01 Last Admin: 03/29/17 09:15 Dose: 125 mg Folic Acid (Folic Acid) 1 mg PO DAILY [facility] Last Admin: 03/29/17 09:14 Dose: Not Given Ceftriaxone Sodium 1 gm/ (Sodium Chloride) 100 mls @ 100 mls/hr IVPB Q24H [facility] Last Admin: 03/29/17 15:33 Dose: 100 mls/hr Azithromycin 500 mg/ Sodium (Chloride) 250 mls @ 250 mls/hr IVPB Q24H [facility] Last Admin: 03/29/17 13:17 Dose: 250 mls/hr Insulin Aspart (Novolog) 0 unit SC ACHS [facility] PRN Reason: Protocol Last Admin: 03/29/17 22:06 Dose: Not Given Lorazepam (Ativan) 0.5 mg PO BID PRN PRN Reason: Anxiety Last Admin: 03/27/17 22:18 Dose: 0.5 mg Magnesium Citrate (Citrate Of Mag) 60 ml PO TID [facility] Last Admin: 03/29/17 17:48 Dose: 60 ml Pantoprazole Sodium (Protonix Inj) 40 mg IVP Q12H [facility] Last Admin: 03/29/17 22:38 Dose: 40 mg Zolpidem Tartrate (Ambien) 5 mg PO HS PRN PRN Reason: Insomnia Last Admin: 03/28/17 22:45 Dose: 5 mg - Labs Labs: 03/29/17 15:44 03/29/17 16:50 PT 16.4 SECONDS (9.7-12.2) H 03/26/17 07:47 INR 1.4 03/26/17 07:47 APTT 36 SECONDS (21-34) H 03/26/17 07:47 Assessment and Plan (1) Right lower lobe pneumonia Status: Acute (2) Symptomatic anemia Status: Acute (3) Anemia Status: Acute
[2017-03-30] MEDS: Albuterol 0.042% Inhal Sol (1.25 mg/3 mL) UD INH SCH ×5 (01:01→19:13)
[2017-03-30 01:37] LABS: MAGNESIUM 1.9 mg/dL (1.6-2.3); PHOSPHOROUS 2.4 mg/dL (2.5-4.5)
[2017-03-30] MEDS: Dextrose 5%/0.9% NS 1,000 ML IV SCH (05:34)
[2017-03-30] MEDS: (Novolog) Insulin Aspart, Recombinant 100 u/ml 10 ml vial SC SCH ×4 (08:15→22:29)
[2017-03-30] MEDS ORDERED: Lidocaine Hydrochloride 5 ML INJ ONE (08:43)
[2017-03-30] MEDS ORDERED: Propofol 10 mg/ml Inj (20 ML) ONE (08:43)
[2017-03-30] MEDS ORDERED: Midazolam 2 MG/2 ML VIAL ONE (08:47)
[2017-03-30] MEDS ORDERED: Glucagon Recombinant 1 mg Inj ONE (08:47)
[2017-03-30] MEDS: Magnesium Citrate Oral SOL (300 ml) PO SCH (10:41)
[2017-03-30] MEDS: Ferric Sodium Gluconat Complex 62.5 mg/5 ml Vial IVPB SCH (11:00)
[2017-03-30 11:32] LABS: BASO # 0.1 K/uL (0.0-0.2); BASO % 1.5 % (0.0-2.0); EOS # 0.4 K/uL (0.0-0.7); HEMATOCRIT 25.5 % (35.0-51.0); LYMPH # 1.1 K/uL (1.0-4.3); LYMPH % 24.2 % (20.0-40.0); MEAN CORPUSCULAR HGB CONC 30.7 g/dL (33.0-37.0); MONO # 0.6 K/uL (0.0-0.8); MONO % 14.3 % (0.0-10.0); NRBC % 0.5 % (0.0-2.0); RED CELL DISTRIBUTION WIDTH 23.5 % (11.5-14.5); WHITE BLOOD COUNT 4.5 K/uL (4.8-10.8)
[2017-03-30 11:45] LABS: CHLORIDE 111 mmol/L (98-107)
[2017-03-30 11:46] LABS: POTASSIUM 2.9 mmol/L (3.6-5.2); SODIUM 141 mmol/L (132-148)
[2017-03-30 11:48] LABS: ALB/GLOB RATIO 0.9 (1.0-2.1); ALKALINE PHOSPHATASE 119 U/L (38-126); AST/SGOT 46 U/L (17-59); BILIRUBIN,TOTAL 2.1 mg/dL (0.2-1.3); BLOOD UREA NITROGEN 5 mg/dL (9-20); CARBON DIOXIDE 21 mmol/L (22-30); GFR AFRICAN-AMERICAN > 60; GLUCOSE,RANDOM 134 mg/dL (75-110); TOTAL PROTEIN 5.5 g/dL (6.3-8.3)
[2017-03-30 11:49] LABS: ALT/SGPT 37 U/L (21-72); CALCIUM 8.1 mg/dl (8.6-10.4); MAGNESIUM 1.9 mg/dL (1.6-2.3); PHOSPHOROUS 2.6 mg/dL (2.5-4.5)
[2017-03-30] MEDS: Azithromycin 500 MG in Sodium Chloride 0.9% 250 ML IVPB SCH (14:48)
--- NOTE | 2017-03-30 15:36 | CP.PCM.PN ---
Subjective - Date & Time of Evaluation Date of Evaluation: 03/30/17 Time of Evaluation: 21:00 - Subjective Subjective: Pt is weak and anxious, able to stand s/p colonoscopy ppt is refusing blood transfusion Objective - Vital Signs/Intake and Output Vital Signs (last 24 hours): Temp Pulse Resp BP Pulse Ox 98.6 F 101 H 18 117/75 95 03/30/17 09:40 03/30/17 12:00 03/30/17 09:40 03/30/17 09:40 03/30/17 09:40 Intake and Output: 03/30/17 03/30/17 06:59 18:59 Intake Total 1800 25 Balance 1800 25 - Medications Medications: Current Medications Albuterol Sulfate (Albuterol 0.042% Inhal Sasha (1.25mg/3ml) Ud) 1.25 mg INH RQ6 [facility] Last Admin: 03/30/17 13:13 Dose: Not Given Ferric Sodium Gluconate Complex (Ferrlecit) 125 mg IVPB DAILY [facility] Stop: 04/02/17 10:01 Last Admin: 03/30/17 11:00 Dose: Not Given Folic Acid (Folic Acid) 1 mg PO DAILY [facility] Last Admin: 03/30/17 12:42 Dose: 1 mg Ceftriaxone Sodium 1 gm/ (Sodium Chloride) 100 mls @ 100 mls/hr IVPB Q24H [facility] Last Admin: 03/29/17 15:33 Dose: 100 mls/hr Azithromycin 500 mg/ Sodium (Chloride) 250 mls @ 250 mls/hr IVPB Q24H [facility] Last Admin: 03/30/17 14:48 Dose: 250 mls/hr Insulin Aspart (Novolog) 0 unit SC ACHS [facility] PRN Reason: Protocol Last Admin: 03/30/17 12:41 Dose: 1 unit Lorazepam (Ativan) 0.5 mg PO BID PRN PRN Reason: Anxiety Last Admin: 03/30/17 14:30 Dose: 0.5 mg Pantoprazole Sodium (Protonix Inj) 40 mg IVP Q12H [facility] Last Admin: 03/30/17 12:42 Dose: 40 mg Potassium Chloride (K-Dur 20 Meq Er Tab) 40 meq PO ONCE ONE Stop: 03/30/17 16:01 Potassium Chloride (K-Dur 20 Meq Er Tab) 40 meq PO ONCE ONE Stop: 03/30/17 22:01 Zolpidem Tartrate (Ambien) 5 mg PO HS PRN PRN Reason: Insomnia Last Admin: 03/28/17 22:45 Dose: 5 mg - Labs Labs: 03/30/17 11:22 03/30/17 11:22 PT 16.4 SECONDS (9.7-12.2) H 03/26/17 07:47 INR 1.4 03/26/17 07:47 APTT 36 SECONDS (21-34) H 03/26/17 07:47 - Constitutional Appears: No Acute Distress, Cachectic, Chronically Ill - Head Exam Head Exam: ATRAUMATIC, NORMAL INSPECTION, NORMOCEPHALIC - Eye Exam Eye Exam: EOMI, Normal appearance, PERRL Pupil Exam: NORMAL ACCOMODATION, PERRL - Respiratory Exam Respiratory Exam: Decreased Breath Sounds, Rales - Cardiovascular Exam Cardiovascular Exam: REGULAR RHYTHM, +S1, +S2. absent: Murmur - GI/Abdominal Exam GI & Abdominal Exam: Soft, Normal Bowel Sounds. absent: Tenderness Assessment and Plan (1) Right lower lobe pneumonia Status: Acute (2) Symptomatic anemia Status: Acute (3) Anemia Status: Acute
[2017-03-30] MEDS ORDERED: Potassium Chloride 20 mEq ER Tab PO ONE ×2 (16:00→22:00)
[2017-03-31] MEDS: Dextrose 5%/0.9% NS 1,000 ML IV SCH (00:21)
[2017-03-31] MEDS: Albuterol 0.042% Inhal Sol (1.25 mg/3 mL) UD INH SCH ×5 (01:08→19:41)
[2017-03-31 07:34] LABS: BASO # 0.1 K/uL (0.0-0.2); BASO % 2.1 % (0.0-2.0); EOS # 0.7 K/uL (0.0-0.7); EOS % 13.3 % (0.0-4.0); HEMATOCRIT 24.5 % (35.0-51.0); LYMPH # 1.2 K/uL (1.0-4.3); LYMPH % 23.9 % (20.0-40.0); MEAN CELL VOLUME 75.2 fL (80.0-94.0); MEAN CORPUSCULAR HEMOGLOBIN 23.4 pg (27.0-31.0); MEAN CORPUSCULAR HGB CONC 31.1 g/dL (33.0-37.0); MEAN PLATELET VOLUME 8.8 fL (7.2-11.7); MONO # 0.7 K/uL (0.0-0.8); MONO % 13.7 % (0.0-10.0); NRBC % 0.2 % (0.0-2.0); RED CELL DISTRIBUTION WIDTH 24.1 % (11.5-14.5); WHITE BLOOD COUNT 5.2 K/uL (4.8-10.8)
[2017-03-31 08:01] LABS: CHLORIDE 112 mmol/L (98-107); SODIUM 140 mmol/L (132-148)
[2017-03-31 08:02] LABS: POTASSIUM 3.7 mmol/L (3.6-5.2)
[2017-03-31 08:04] LABS: GFR AFRICAN-AMERICAN > 60
[2017-03-31 08:05] LABS: BLOOD UREA NITROGEN 7 mg/dL (9-20); CALCIUM 8.2 mg/dl (8.6-10.4); CARBON DIOXIDE 21 mmol/L (22-30); GLUCOSE,RANDOM 134 mg/dL (75-110)
[2017-03-31] MEDS: (Novolog) Insulin Aspart, Recombinant 100 u/ml 10 ml vial SC SCH ×4 (08:06→21:58)
[2017-03-31] MEDS: Ferric Sodium Gluconat Complex 62.5 mg/5 ml Vial IVPB SCH (10:03)
[2017-03-31] MEDS ORDERED: Iohexol 240 (50 ml) PO ONE (12:00)
--- NOTE | 2017-03-31 13:10 | PN ---
DATE: 03/31/2017 LOCATION: 651, bed B. This is a 76-year-old male, post upper and lower endoscopy, seen and examined in rounds without signi ficant clinical changes with intermittent periods of wheezing as reported by the nursing staff, chago ating oral intake well. The entire chart is reviewed including, but not limited to the most recent l ab and radiology study results, current and the previous medication lists, current and the previous m edical events as well as allergies to medication list. Case discussed with the staff at length today and the most recent lab results showed hemoglobin of 7. 6, hematocrit 24.5 with low indices highly suggestive of hypochromic microcytic anemia with low plate let count of 80 with low CO2 content to 21, low BUN and creatinine, but elevated blood glucose level to 172 and low calcium 8.2 with low albumin and low total protein before. Stool for occult blood was reported to be positive. PHYSICAL EXAMINATION: GENERAL: A 76-year-old male appeared to be awake, alert, oriented. VITAL SIGNS: Afebrile with pulse of 94, respiratory rate of 20-22 with blood pressure of 138/76. HEENT: Showed pale, dry oral mucoid membrane. Nonicteric sclerae. LUNGS: Few scattered crepitation. Decreased air entry at bases. HEART: Positive S1 and S2. ABDOMEN: Soft. Bowel sounds are present with slight generalized tenderness. No mass or organomegal y. No rebound tenderness or guarding. EXTREMITIES: With lower extremities mild edematous changes. No clubbing or cyanosis. NEUROLOGIC: No new reported neurological deficits, sensory or motor. Peripheral pulses are positive . 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 IMPRESSION: 1. Colon polyps. 2. Diffuse diverticulosis. 3. Peptic ulcer disease. 4. Anemia, most likely secondary to above. 5. Known history of, but not limited to hyperlipidemia, diabetes mellitus and hypertension. 6. Known history of benign prostatic hypertrophy. SUGGESTION: 1. Agree with your plan. 2. Sectional abdominal and pelvic CAT scan. 3. The patient will need barium enema for further evaluation of the colon after more aggressive prep aration. Karin Jesus MD cc: 14 TT: 03/31/2017 13:09:15 Confirmation # [id number] Dictation # [id number]
[2017-03-31] MEDS ORDERED: EPOETIN ALFA 10,000 UNIT/ML ML SC ONE (14:00)
[2017-03-31] MEDS: Azithromycin 500 MG in Sodium Chloride 0.9% 250 ML IVPB SCH (14:15)
--- NOTE | 2017-03-31 15:17 | RAD ---
HISTORY: sob COMPARISON: Comparison is made to the previous study dated 03/26/2017 FINDINGS: LUNGS: Interval worsening of focal opacity and infiltrate at the right lower lung since the previous exam. The possibility of pneumonia should be considered. Otherwise no interval change. PLEURA: No significant pleural effusion identified, no pneumothorax apparent. CARDIOVASCULAR: Normal. OSSEOUS STRUCTURES: No significant abnormalities. VISUALIZED UPPER ABDOMEN: Normal. OTHER FINDINGS: None. IMPRESSION: Worsening focal opacity and infiltrate at the right lower lung since the previous exam. Findings suspicious for pneumonia. Otherwise no interval
[2017-03-31] MEDS ORDERED: Iodixanol 320 MG/ML 100 ML BOTTLE IV ONE (15:53)
--- NOTE | 2017-03-31 18:41 | CP.PCM.PCO ---
Physician Communication Note - Physician Communication Note Physician Communication Note: transfuse 2 units prbc's now
--- NOTE | 2017-03-31 23:40 | CP.PCM.PN ---
Subjective - Date & Time of Evaluation Date of Evaluation: 03/31/17 Time of Evaluation: 20:00 - Subjective Subjective: Pt seen and evalauted, she was refusing blood transfusion, however i talked to her in detail explained the risks , benifits and she agreed for blood transfusion, pt is not short of breath, not actively bleeding Objective - Vital Signs/Intake and Output Vital Signs (last 24 hours): Temp Pulse Resp BP Pulse Ox 98.0 F 100 H 20 128/71 94 L 03/31/17 23:11 03/31/17 23:11 03/31/17 23:11 03/31/17 23:11 03/31/17 21:42 Intake and Output: 03/31/17 04/01/17 18:59 06:59 Intake Total 650 0 Balance 650 0 - Medications Medications: Current Medications Acetaminophen (Tylenol 325mg Tab) 650 mg PO Q6 PRN PRN Reason: Pain, moderate (4-7) Last Admin: 03/31/17 03:39 Dose: 650 mg Albuterol Sulfate (Albuterol 0.042% Inhal Sasha (1.25mg/3ml) Ud) 1.25 mg INH RQ6 [facility] Last Admin: 03/31/17 19:41 Dose: 1.25 mg Ferric Sodium Gluconate Complex (Ferrlecit) 125 mg IVPB DAILY [facility] Stop: 04/02/17 10:01 Last Admin: 03/31/17 10:03 Dose: 125 mg Folic Acid (Folic Acid) 1 mg PO DAILY [facility] Last Admin: 03/31/17 10:03 Dose: 1 mg Ceftriaxone Sodium 1 gm/ (Sodium Chloride) 100 mls @ 100 mls/hr IVPB Q24H [facility] Last Admin: 03/31/17 19:05 Dose: 100 mls/hr Azithromycin 500 mg/ Sodium (Chloride) 250 mls @ 250 mls/hr IVPB Q24H [facility] Last Admin: 03/31/17 14:15 Dose: 250 mls/hr Insulin Aspart (Novolog) 0 unit SC ACHS [facility] PRN Reason: Protocol Last Admin: 03/31/17 21:58 Dose: Not Given Lorazepam (Ativan) 0.5 mg PO BID PRN PRN Reason: Anxiety Last Admin: 03/31/17 04:38 Dose: 0.5 mg Pantoprazole Sodium (Protonix Inj) 40 mg IVP Q12H [facility] Last Admin: 03/31/17 12:50 Dose: 40 mg Zolpidem Tartrate (Ambien) 5 mg PO HS PRN PRN Reason: Insomnia Last Admin: 03/30/17 22:34 Dose: 5 mg - Labs Labs: 03/31/17 07:27 03/31/17 07:27 PT 16.4 SECONDS (9.7-12.2) H 03/26/17 07:47 INR 1.4 03/26/17 07:47 APTT 36 SECONDS (21-34) H 03/26/17 07:47 - Constitutional Appears: No Acute Distress - Head Exam Head Exam: ATRAUMATIC, NORMAL INSPECTION, NORMOCEPHALIC - Eye Exam Eye Exam: EOMI, Normal appearance, PERRL Pupil Exam: NORMAL ACCOMODATION, PERRL - ENT Exam ENT Exam: Mucous Membranes Moist, Normal Exam - Neck Exam Neck Exam: Full ROM, Normal Inspection. absent: Lymphadenopathy - Respiratory Exam Respiratory Exam: Decreased Breath Sounds - Cardiovascular Exam Cardiovascular Exam: REGULAR RHYTHM, +S1, +S2. absent: Murmur - GI/Abdominal Exam GI & Abdominal Exam: Soft, Normal Bowel Sounds. absent: Tenderness Assessment and Plan (1) Right lower lobe pneumonia Status: Acute (2) Symptomatic anemia Status: Acute (3) Anemia Assessment & Plan: transfue 2 units of PRBCs Status: Acute
[2017-04-01] MEDS: Albuterol 0.042% Inhal Sol (1.25 mg/3 mL) UD INH SCH ×4 (01:03→20:46)
[2017-04-01] MEDS: (Novolog) Insulin Aspart, Recombinant 100 u/ml 10 ml vial SC SCH ×4 (08:30→21:45)
[2017-04-01] MEDS: Ferric Sodium Gluconat Complex 62.5 mg/5 ml Vial IVPB SCH (09:48)
--- NOTE | 2017-04-01 10:55 | CT ---
PROCEDURE: CT Abdomen and Pelvis with oral and IV contrast. HISTORY: Anemia, colon polyps COMPARISON: Abdomen ultrasound performed 02/13/16, pelvis ultrasound performed 02/13/16, CT abdomen and pelvis without IV contrast performed 10/12/13 TECHNIQUE: Contiguous axial images of the abdomen and pelvis. Oral and IV contrast was administered. Coronal and Sagittal reformats generated and reviewed. Contrast dose: 100 cc Visipaque Radiation dose: Total exam DLP = 809.16 mGy-cm. This CT exam was performed using one or more of the following dose reduction techniques: Automated exposure control, adjustment of the mA and/or kV according to patient size, and/or use of iterative reconstruction technique. FINDINGS: LOWER THORAX: Small bilateral pleural effusions with associated compressive consolidations. Partially imaged cardiomegaly. Moderate coronary artery calcifications. Small hiatal hernia. LIVER: Heterogeneous hepatic echotexture. Subtle nodular hepatic contour. GALLBLADDER AND BILE DUCTS: Unremarkable. PANCREAS: Unremarkable. SPLEEN: Unremarkable. ADRENALS: Unremarkable. KIDNEYS AND URETERS: The kidneys enhance symmetrically. No hydronephrosis or obstructing renal calculus. BLADDER: The urinary bladder appears unremarkable. REPRODUCTIVE: The prostate gland measures approximately 5.5 x 6.0 cm. Partially imaged bilateral hydroceles. APPENDIX: Presumed appendix containing air in the right lower quadrant, incompletely visualized. BOWEL: The stomach is nondistended. The bowel loops appear within normal limits of caliber without evidence of intestinal obstruction. Moderate mucosal thickening and edema throughout the small bowel. PERITONEUM: Intra-abdominal/pelvic ascites. No definite free air. LYMPH NODES: No bulky lymphadenopathy identified. VASCULATURE: Dense atherosclerotic calcifications. No aortic aneurysm. BONES: 10 mm probable vertebral hemangioma, L2. OTHER FINDINGS: Soft tissue edema/anasarca. IMPRESSION: Findings as above compatible with small bowel inflammation consistent with acute enteritis. Correlate clinically. Abdominal and pelvic ascites. Bilateral pleural effusions and associated compressive consolidations. Cardiomegaly. Moderate coronary artery calcifications. Evidence of subtle nodular hepatic contour. Heterogeneous hepatic echotexture. Correlate clinically for possibility of cirrhosis. Enlarged heterogeneous prostate gland. Correlate with PSA. Partially imaged bilateral hydroceles. Presumed appendix containing air in the right lower quadrant, incompletely visualized. Soft tissue edema/anasarca. Additional findings as above. Preliminary impression was provided by virtual radiologic. Case discussed with SHADIA Fuller on 04/01/17 at 10:48 a.m..
[2017-04-01 11:40] LABS: BASO # 0.1 K/uL (0.0-0.2); BASO % 1.7 % (0.0-2.0); EOS # 0.5 K/uL (0.0-0.7); EOS % 8.4 % (0.0-4.0); LYMPH # 0.8 K/uL (1.0-4.3); MEAN CELL VOLUME 77.1 fL (80.0-94.0); MONO # 0.7 K/uL (0.0-0.8)
[2017-04-01 11:55] LABS: HEMATOCRIT 30.4 % (35.0-51.0); LYMPH % 12.7 % (20.0-40.0); MEAN CORPUSCULAR HEMOGLOBIN 24.4 pg (27.0-31.0); MEAN CORPUSCULAR HGB CONC 31.6 g/dL (33.0-37.0); MEAN PLATELET VOLUME 9.1 fL (7.2-11.7); MONO % 12.1 % (0.0-10.0); NRBC % 0.2 % (0.0-2.0); RED CELL DISTRIBUTION WIDTH 23.1 % (11.5-14.5)
[2017-04-01 12:04] LABS: CHLORIDE 106 mmol/L (98-107)
[2017-04-01 12:05] LABS: POTASSIUM 4.1 mmol/L (3.6-5.2); SODIUM 135 mmol/L (132-148)
[2017-04-01 12:07] LABS: GFR AFRICAN-AMERICAN > 60
[2017-04-01 12:08] LABS: BLOOD UREA NITROGEN 8 mg/dL (9-20); CALCIUM 7.9 mg/dl (8.6-10.4); CARBON DIOXIDE 19 mmol/L (22-30); GLUCOSE,RANDOM 165 mg/dL (75-110)
--- NOTE | 2017-04-01 13:40 | PN ---
DATE: 04/01/2017 LOCATION: 651, bed B. This is a 76-year-old male seen and examined on rounds without significant clinical changes, tolerati ng oral intake well. The initial report of the abdominal CAT scan was seen and indicative of small b owel acute enteritis with abdominal and pelvic ascites and bilateral pleural effusion with cardiomega ly with possible hepatitic cirrhosis and enlarged prostate. The patient still has mild intermittent periods of abdominal pain, but no active bleeding. The most recent lab results showed hemoglobin of 9.6, hematocrit 30.4 with low indices highly suggestive of hy pochromic microcytic anemia with thrombocytopenia of 71 and blood glucose level of 188, low potassium , low calcium , low BUN and creatinine. Case discussed at length with the staff on the floor. PHYSICAL EXAMINATION: GENERAL: A 76-year-old male. VITAL SIGNS: Afebrile with heart rate of 96, respiratory rate 20-22, blood pressure 130/68. HEENT: Showed pale, dry oral mucoid membrane. Nonicteric sclerae. LUNGS: Few scattered crepitations, decreased air entry at bases. HEART: Positive S1 and S2. ABDOMEN: Soft. Bowel sounds are present. No mass or organomegaly. No rebound tenderness or guardi ng. EXTREMITIES: Without significant edema, clubbing or cyanosis. NEUROLOGIC: No reported new neurologic deficits, sensory or motor. IMPRESSION: 1. Hypochromic microcytic anemia. 2. Peptic ulcer disease. 3. Diffuse diverticulosis. 4. Colon multiple polyps. 5. Anemia secondary to above. 6. Abnormal CAT scan of the abdomen and the pelvis. 7. 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 8. Known history of hypertension, hyperlipidemia and diabetes mellitus. 9. Reported benign prostatic hypertrophy by history. 10. Bilateral pneumonia. 11. Acute enteritis by CAT scan report. SUGGESTION: 1. Agree with your plan. 2. Due to the patient's persistent anemia, despite the finding of diffuse diverticulosis and a colon polyp, the post-colonoscopy done was not able to fully evaluate the right side of the colon and the cecum, barium enema is ordered for a.m. 3. Further recommendations to follow and pulmonary reevaluation to continue. 4. Guaiac all the stools daily x 3. 5. Further recommendations and evaluation to follow. Karin Jesus MD cc: 14 TT: 04/01/2017 13:39:40 Confirmation # [id number] Dictation # [id number] rn
[2017-04-01] MEDS: Azithromycin 500 MG in Sodium Chloride 0.9% 250 ML IVPB SCH (13:45)
[2017-04-01 14:15] LABS: PROSTATE SPECIFIC ANTIGEN 3.79 ng/mL (0.00-4.0)
[2017-04-01] MEDS ORDERED: Magnesium Citrate Oral SOL (300 ml) PO ONE (17:00)
--- NOTE | 2017-04-01 18:06 | CP.PCM.CON ---
History of Present Illness - History of Present Illness History of Present Illness: reason for consultation: shortness of breath Patient is 76-year-old male with past medical history of Anemia, Anxiety, Benign Prostatic Hyperplasia, Diabetes, HTN, Hypercholesterolemia, was sent by PMD for low hemoglobin. Patient refused transfusion in the past and was complaining cough generalized weakness and shortness of breath Status post transfusion of packed RBCs yesterday with no change in respiratory status. CAT scan of the abdomen consistent with enteritis, ascites and small pleural effusion. Patient denies cough, denies fever chills, denies chest pain but complaining of swelling of the lower extremities and wheezing. Review of Systems - Review of Systems All systems: reviewed and no additional remarkable complaints except (shortness of breath) Past Patient History - Infectious Disease Hx of Infectious Diseases: None - Past Medical History & Family History Past Medical History?: No - Past Social History Smoking Status: Former Smoker - CARDIAC Hx Hypercholesterolemia: Yes Hx Hypertension: Yes - HEENT Hx HEENT Problems: Yes Hx Epistaxis: Yes - ENDOCRINE/METABOLIC Hx Endocrine Disorders: Yes Hx Diabetes Mellitus Type 2: Yes - HEMATOLOGICAL/ONCOLOGICAL Hx Anemia: Yes - MUSCULOSKELETAL/RHEUMATOLOGICAL Hx Falls: No - GENITOURINARY/GYNECOLOGICAL Hx Genitourinary Disorders: Yes Hx Prostate Problems: Yes - PSYCHIATRIC Hx Anxiety: Yes Hx Substance Use: No - SURGICAL HISTORY Hx Surgeries: No Other/Comment: Prostate sx - ANESTHESIA Hx Anesthesia: No Meds Allergies/Adverse Reactions: Allergies Allergy/AdvReac Type Severity Reaction Status Date / Time No Known Allergies Allergy Verified 03/26/17 06:48 - Medications Medications: Current Medications Acetaminophen (Tylenol 325mg Tab) 650 mg PO Q6 PRN PRN Reason: Pain, moderate (4-7) Last Admin: 03/31/17 03:39 Dose: 650 mg Albuterol Sulfate (Albuterol 0.042% Inhal Sasha (1.25mg/3ml) Ud) 1.25 mg INH RQ6 [facility] Last Admin: 04/01/17 13:29 Dose: 1.25 mg Ferric Sodium Gluconate Complex (Ferrlecit) 125 mg IVPB DAILY [facility] Stop: 04/02/17 10:01 Last Admin: 04/01/17 09:48 Dose: 125 mg Folic Acid (Folic Acid) 1 mg PO DAILY [facility] Last Admin: 04/01/17 09:50 Dose: 1 mg Ceftriaxone Sodium 1 gm/ (Sodium Chloride) 100 mls @ 100 mls/hr IVPB Q24H [facility] Last Admin: 04/01/17 15:34 Dose: 100 mls/hr Azithromycin 500 mg/ Sodium (Chloride) 250 mls @ 250 mls/hr IVPB Q24H [facility] Last Admin: 04/01/17 13:45 Dose: 250 mls/hr Insulin Aspart (Novolog) 0 unit SC ACHS [facility] PRN Reason: Protocol Last Admin: 04/01/17 12:04 Dose: 1 unit Lorazepam (Ativan) 0.5 mg PO BID PRN PRN Reason: Anxiety Last Admin: 04/01/17 09:53 Dose: 0.5 mg Pantoprazole Sodium (Protonix Inj) 40 mg IVP Q12H [facility] Last Admin: 04/01/17 12:03 Dose: 40 mg Sodium Phosphate (Fleet Enema) 135 ml IA ONCE ONE Stop: 04/01/17 22:01 Sodium Phosphate (Fleet Enema) 135 ml IA ONCE ONE Stop: 04/02/17 08:01 Zolpidem Tartrate (Ambien) 5 mg PO HS PRN PRN Reason: Insomnia Last Admin: 03/30/17 22:34 Dose: 5 mg Physical Exam - Constitutional Appears: No Acute Distress - Head Exam Head Exam: ATRAUMATIC, NORMOCEPHALIC - Eye Exam Eye Exam: Normal appearance - ENT Exam ENT Exam: Mucous Membranes Moist - Neck Exam Neck exam: Positive for: Normal Inspection - Respiratory Exam Respiratory Exam: Clear to Auscultation Bilateral - Cardiovascular Exam Cardiovascular Exam: REGULAR RHYTHM - GI/Abdominal Exam GI & Abdominal Exam: Distended, Soft - Extremities Exam Extremities exam: Positive for: pedal edema - Neurological Exam Neurological exam: Alert, Oriented x3 Results - Vital Signs Recent Vital Signs: Last Vital Signs Temp 97.9 F 04/01/17 15:48 Pulse 90 04/01/17 15:48 Resp 20 04/01/17 15:48 BP 139/83 04/01/17 15:48 Pulse Ox 96 04/01/17 15:48 - Labs Result Diagrams: 04/01/17 11:27 04/01/17 11:27 Labs: Laboratory Results - last 24 hr 03/30/17 03/31/17 04/01/17 14:32 21:31 06:06 WBC RBC Hgb Hct MCV MCH MCHC RDW Plt Count MPV Neut % (Auto) Lymph % (Auto) Childress % (Auto) Eos % (Auto) Baso % (Auto) Neut # Lymph # Childress # Eos # Baso # Sodium Potassium Chloride Carbon Dioxide Anion Gap BUN Creatinine Est GFR ( Amer) Est GFR (Non-Af Amer) POC Glucose (mg/dL) 148 H 102 Random Glucose Calcium Prostate Specific Ag Blood Type O POSITIVE Antibody Screen Negative 04/01/17 04/01/17 04/01/17 11:13 11:27 11:27 WBC 6.0 RBC 3.95 L Hgb 9.6 L D Hct 30.4 L MCV 77.1 L MCH 24.4 L MCHC 31.6 L RDW 23.1 H Plt Count 71 L MPV 9.1 Neut % (Auto) 65.1 Lymph % (Auto) 12.7 L Childress % (Auto) 12.1 H Eos % (Auto) 8.4 H Baso % (Auto) 1.7 Neut # 3.9 Lymph # 0.8 L Childress # 0.7 Eos # 0.5 Baso # 0.1 Sodium 135 Potassium 4.1 Chloride 106 Carbon Dioxide 19 L Anion Gap 14 BUN 8 L Creatinine 0.7 L Est GFR ( Amer) > 60 Est GFR (Non-Af Amer) > 60 POC Glucose (mg/dL) 188 H Random Glucose 165 H Calcium 7.9 L Prostate Specific Ag 3.79 Blood Type Antibody Screen 04/01/17 16:38 WBC RBC Hgb Hct MCV MCH MCHC RDW Plt Count MPV Neut % (Auto) Lymph % (Auto) Childress % (Auto) Eos % (Auto) Baso % (Auto) Neut # Lymph # Childress # Eos # Baso # Sodium Potassium Chloride Carbon Dioxide Anion Gap BUN Creatinine Est GFR ( Amer) Est GFR (Non-Af Amer) POC Glucose (mg/dL) 131 H Random Glucose Calcium Prostate Specific Ag Blood Type Antibody Screen Assessment & Plan (1) Dyspnea Status: Acute Comment: shortness of breathmost likely secondary to pneumonia. CAT scan of the abdomen showed small bilateral pleural effusion with no infiltrate. Pro calcitonin level. BNP and echocardiogram. GI workup to rule out malignancy (2) Enteritis Status: Acute
--- NOTE | 2017-04-01 23:37 | CP.PCM.PN ---
Subjective - Date & Time of Evaluation Date of Evaluation: 04/01/17 Time of Evaluation: 09:50 Objective - Vital Signs/Intake and Output Vital Signs (last 24 hours): Temp Pulse Resp BP Pulse Ox 97.9 F 90 20 139/83 96 04/01/17 15:48 04/01/17 15:48 04/01/17 15:48 04/01/17 15:48 04/01/17 15:48 Intake and Output: 04/01/17 04/02/17 18:59 06:59 Intake Total 700 Balance 700 - Medications Medications: Current Medications Acetaminophen (Tylenol 325mg Tab) 650 mg PO Q6 PRN PRN Reason: Pain, moderate (4-7) Last Admin: 03/31/17 03:39 Dose: 650 mg Albuterol Sulfate (Albuterol 0.042% Inhal Sasha (1.25mg/3ml) Ud) 1.25 mg INH RQ6 [facility]MA Last Admin: 04/01/17 20:46 Dose: Not Given Ferric Sodium Gluconate Complex (Ferrlecit) 125 mg IVPB DAILY [facility] Stop: 04/02/17 10:01 Last Admin: 04/01/17 09:48 Dose: 125 mg Folic Acid (Folic Acid) 1 mg PO DAILY [facility] Last Admin: 04/01/17 09:50 Dose: 1 mg Ceftriaxone Sodium 1 gm/ (Sodium Chloride) 100 mls @ 100 mls/hr IVPB Q24H [facility] Last Admin: 04/01/17 15:34 Dose: 100 mls/hr Azithromycin 500 mg/ Sodium (Chloride) 250 mls @ 250 mls/hr IVPB Q24H [facility] Last Admin: 04/01/17 13:45 Dose: 250 mls/hr Insulin Aspart (Novolog) 0 unit SC ACHS [facility] PRN Reason: Protocol Last Admin: 04/01/17 21:45 Dose: Not Given Lorazepam (Ativan) 0.5 mg PO BID PRN PRN Reason: Anxiety Last Admin: 04/01/17 09:53 Dose: 0.5 mg Pantoprazole Sodium (Protonix Inj) 40 mg IVP Q12H [facility] Last Admin: 04/01/17 12:03 Dose: 40 mg Sodium Phosphate (Fleet Enema) 135 ml PA ONCE ONE Stop: 04/02/17 08:01 Zolpidem Tartrate (Ambien) 5 mg PO HS PRN PRN Reason: Insomnia Last Admin: 03/30/17 22:34 Dose: 5 mg - Labs Labs: 04/01/17 11:27 04/01/17 11:27 PT 16.4 SECONDS (9.7-12.2) H 03/26/17 07:47 INR 1.4 03/26/17 07:47 APTT 36 SECONDS (21-34) H 03/26/17 07:47 Assessment and Plan (1) Right lower lobe pneumonia Status: Acute (2) Symptomatic anemia Status: Acute (3) Anemia Status: Acute
[2017-04-02] MEDS: Albuterol 0.042% Inhal Sol (1.25 mg/3 mL) UD INH SCH ×3 (01:54→13:24)
[2017-04-02] MEDS: (Novolog) Insulin Aspart, Recombinant 100 u/ml 10 ml vial SC SCH ×4 (08:06→21:44)
[2017-04-02] MEDS: Ferric Sodium Gluconat Complex 62.5 mg/5 ml Vial IVPB SCH (10:38)
--- NOTE | 2017-04-02 13:13 | PN ---
DATE: 04/02/2017 LOCATION: 651, bed B. This is a 76-year-old male seen and examined at rounds early today scheduled for barium enema and the case discussed with the radiology staff regarding the barium enema as well as the results of the CAT scan of the abdomen and the pelvis. The patient tolerated somewhat oral intake well and no reported active bleeding. The entire chart is reviewed including, but not limited to the most recent lab and radiology study results, current and the previous medication lists, current and the previous medical events. Case discussed with the radha alamo at length. Most recent lab results showed low hemoglobin of 9.6, low hematocrit 30.4 with low indices highly sug gestive of hypochromic microcytic anemia with thrombocytopenia of 71 of unclear etiology with blood g lucose level 112 with low calcium 7.9, but decreased total bilirubin to 2.1 with low albumin and low total protein with positive stool for occult blood. PHYSICAL EXAMINATION: GENERAL: A 76-year-old male. VITAL SIGNS: Afebrile with pulse of 94, respiratory rate 20-22, blood pressure of 140/72. HEENT: Showed pale, dry oral mucoid membrane. Slightly icteric sclerae bilaterally. HEART: Positive S1 and S2. ABDOMEN: Soft. Bowel sounds are present. No mass or organomegaly. No rebound tenderness or guardi ng. RECTAL: The patient refused. EXTREMITIES: Without significant edema, clubbing or cyanosis. IMPRESSION: 1. Anemia, hypochromic, microcytic, indicative of iron deficiency anemia. 2. Diffuse diverticulosis. 3. Multiple colon polyps, pathology report is seen. 4. Peptic ulcer disease. 5. Acute enteritis by CAT scan of the abdomen and the pelvis. 6. Evidence of hepatic cirrhosis, portal hypertension and mild ascites. 7. Past medical history including, but not limited to hyperlipidemia, diabetes mellitus and hyperten eleazar. 8. Reported history of benign prostatic hypertrophy. 9. Bilateral pneumonia. SUGGESTION: 1. Continue current management. 2. Further evaluation and recommendation to follow post-barium enema. 3. Case is to be discussed with the admitting medical team and followup colonoscopy after 1 year, is required due to the finding of his pathology report of the colon polyps. Karin Jesus MD cc: 14 TT: 04/02/2017 13:12:42 Confirmation # [id number] Dictation # [id number] tn
[2017-04-02] MEDS: Azithromycin 500 MG in Sodium Chloride 0.9% 250 ML IVPB SCH (13:24)
--- NOTE | 2017-04-02 13:57 | RAD ---
PROCEDURE: Abdomen radiograph 04/02/2017 HISTORY: Diffuse small bowel inflammation. Acute enteritis. Discussion with indicates unable to visualize the entire colon. COMPARISON: Comparison made with CT scan abdomen pelvis from 03/31/2017. TECHNIQUE: Single AP supine view of the abdomen performed. FINDINGS: Current study reveals air throughout the distal transverse and descending colon no moderate amount of stool is felt be present within the right colon. No evidence of acute mechanical bowel obstruction. IMPRESSION: Moderate amount of residual stool seen throughout the right colon. No evidence of acute mechanical bowel obstruction.
[2017-04-02 14:19] LABS: BASO # 0.1 K/uL (0.0-0.2); BASO % 1.8 % (0.0-2.0); EOS # 0.5 K/uL (0.0-0.7); EOS % 8.5 % (0.0-4.0); HEMATOCRIT 31.9 % (35.0-51.0); LYMPH # 1.1 K/uL (1.0-4.3); LYMPH % 17.5 % (20.0-40.0); MEAN CELL VOLUME 77.3 fL (80.0-94.0); MEAN CORPUSCULAR HEMOGLOBIN 24.6 pg (27.0-31.0); MEAN CORPUSCULAR HGB CONC 31.8 g/dL (33.0-37.0); MEAN PLATELET VOLUME 8.8 fL (7.2-11.7); MONO # 0.7 K/uL (0.0-0.8); MONO % 11.5 % (0.0-10.0); NRBC % 0.1 % (0.0-2.0); RED CELL DISTRIBUTION WIDTH 23.9 % (11.5-14.5); WHITE BLOOD COUNT 6.1 K/uL (4.8-10.8)
--- NOTE | 2017-04-02 17:25 | CP.PCM.PN ---
Subjective - Date & Time of Evaluation Date of Evaluation: 04/02/17 Time of Evaluation: 15:20 - Subjective Subjective: patient seen and examined. Lying comfortably in no acute distress Patient states breathing better with less cough Normal pro BNP and pro calcitonin level goes against pneumonia and CHF Objective - Vital Signs/Intake and Output Vital Signs (last 24 hours): Temp Pulse Resp BP Pulse Ox 98 F 97 H 20 119/69 96 04/02/17 15:06 04/02/17 15:06 04/02/17 15:06 04/02/17 15:06 04/02/17 15:06 Intake and Output: 04/02/17 04/02/17 06:59 18:59 Intake Total 300 Balance 300 - Medications Medications: Current Medications Acetaminophen (Tylenol 325mg Tab) 650 mg PO Q6 PRN PRN Reason: Pain, moderate (4-7) Last Admin: 03/31/17 03:39 Dose: 650 mg Albuterol Sulfate (Albuterol 0.042% Inhal Sasha (1.25mg/3ml) Ud) 1.25 mg INH RQ6 [facility]MA Last Admin: 04/02/17 13:24 Dose: 1.25 mg Folic Acid (Folic Acid) 1 mg PO DAILY [facility] Last Admin: 04/02/17 12:37 Dose: Not Given Hydrochlorothiazide (Microzide) 12.5 mg PO DAILY [facility] Last Admin: 04/02/17 15:51 Dose: 12.5 mg Ceftriaxone Sodium 1 gm/ (Sodium Chloride) 100 mls @ 100 mls/hr IVPB Q24H [facility] Last Admin: 04/02/17 15:51 Dose: 100 mls/hr Azithromycin 500 mg/ Sodium (Chloride) 250 mls @ 250 mls/hr IVPB Q24H [facility] Last Admin: 04/02/17 13:24 Dose: 250 mls/hr Insulin Aspart (Novolog) 0 unit SC ACHS [facility] PRN Reason: Protocol Last Admin: 04/02/17 12:17 Dose: Not Given Lorazepam (Ativan) 0.5 mg PO BID PRN PRN Reason: Anxiety Last Admin: 04/01/17 09:53 Dose: 0.5 mg Pantoprazole Sodium (Protonix Inj) 40 mg IVP Q12H [facility] Last Admin: 04/02/17 12:15 Dose: 40 mg Zolpidem Tartrate (Ambien) 5 mg PO HS PRN PRN Reason: Insomnia Last Admin: 03/30/17 22:34 Dose: 5 mg - Labs Labs: 04/02/17 14:13 04/01/17 11:27 PT 16.4 SECONDS (9.7-12.2) H 03/26/17 07:47 INR 1.4 03/26/17 07:47 APTT 36 SECONDS (21-34) H 03/26/17 07:47 - Head Exam Head Exam: ATRAUMATIC, NORMOCEPHALIC - Eye Exam Eye Exam: Normal appearance - ENT Exam ENT Exam: Mucous Membranes Moist - Neck Exam Neck Exam: Normal Inspection - Respiratory Exam Respiratory Exam: Clear to Ausculation Bilateral - Cardiovascular Exam Cardiovascular Exam: REGULAR RHYTHM - GI/Abdominal Exam GI & Abdominal Exam: Soft, Normal Bowel Sounds - Extremities Exam Extremities Exam: Pedal Edema - Neurological Exam Neurological Exam: Alert, Oriented x3 Assessment and Plan (1) Dyspnea Assessment & Plan: normal pro calcitonin leveland normal pro BNP gI workup to rule out malignancy consider paracentesis PSA level Status: Acute (2) Enteritis Status: Acute
--- NOTE | 2017-04-02 18:48 | CT ---
PROCEDURE: CT Chest without contrast HISTORY: f/u pneumonia COMPARISON: Portable chest radiographs from 03/31/2017 TECHNIQUE: Contiguous axial images were obtained through the chest without intravenous contrast enhancement. Sagittal and coronal reconstructions were performed. Radiation dose (DLP): 411.57 mGy-cm. This CT exam was performed using one or more of the following dose reduction techniques: Automated exposure control, adjustment of the mA and/or kV according to patient size, and/or use of iterative reconstruction technique. FINDINGS: LUNGS: There is multifocal ground-glass attenuation in the right upper lobe. There are also smaller areas of ground-glass attenuation in the left upper lobe. There is confluent triangular high attenuation in the right lower lobe. There are no endobronchial lesions. 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 The heart is normal in size. No pericardial effusion. Small mediastinal lymph nodes are likely reactive in etiology. PLEURA: Small bilateral pleural effusions. No pneumothorax. BONES: No fracture. No destructive lesion. UPPER ABDOMEN: There is small perihepatic ascites. The liver appears small in size. There is apparent mild splenomegaly. OTHER FINDINGS: None. IMPRESSION: Multifocal ground-glass attenuation in both upper lobes, worse on the right. Findings could be related to nonspecific infection or mild pulmonary edema. Multifocal low grade neoplasm is also a less likely differential consideration. Follow-up CT scan after medical management is recommended to assess stability/ resolution. Confluent airspace disease in the right lower lobe likely represents pneumonia. Follow-up to resolution is advised. Small bilateral pleural effusions. Suspect cirrhosis of liver. Mild splenomegaly and mild perihepatic ascites.
--- NOTE | 2017-04-02 23:43 | CP.PCM.PN ---
Subjective - Date & Time of Evaluation Date of Evaluation: 04/02/17 - Subjective Subjective: patient seen and examined. Lying comfortably in no acute distress Patient states breathing better with less cough Normal pro BNP and pro calcitonin level goes against pneumonia and CHF Objective - Vital Signs/Intake and Output Vital Signs (last 24 hours): Temp Pulse Resp BP Pulse Ox 98 F 102 H 20 119/69 96 04/02/17 15:06 04/02/17 16:00 04/02/17 15:06 04/02/17 15:06 04/02/17 15:06 Intake and Output: 04/02/17 04/03/17 18:59 06:59 Intake Total 300 Balance 300 - Medications Medications: Current Medications Acetaminophen (Tylenol 325mg Tab) 650 mg PO Q6 PRN PRN Reason: Pain, moderate (4-7) Last Admin: 03/31/17 03:39 Dose: 650 mg Albuterol Sulfate (Albuterol 0.042% Inhal Sasha (1.25mg/3ml) Ud) 1.25 mg INH RQ6 [facility] Last Admin: 04/02/17 13:24 Dose: 1.25 mg Folic Acid (Folic Acid) 1 mg PO DAILY [facility] Last Admin: 04/02/17 12:37 Dose: Not Given Hydrochlorothiazide (Microzide) 12.5 mg PO DAILY [facility] Last Admin: 04/02/17 15:51 Dose: 12.5 mg Ceftriaxone Sodium 1 gm/ (Sodium Chloride) 100 mls @ 100 mls/hr IVPB Q24H [facility] Last Admin: 04/02/17 15:51 Dose: 100 mls/hr Azithromycin 500 mg/ Sodium (Chloride) 250 mls @ 250 mls/hr IVPB Q24H [facility] Last Admin: 04/02/17 13:24 Dose: 250 mls/hr Insulin Aspart (Novolog) 0 unit SC ACHS [facility] PRN Reason: Protocol Last Admin: 04/02/17 21:44 Dose: Not Given Lorazepam (Ativan) 0.5 mg PO BID PRN PRN Reason: Anxiety Last Admin: 04/01/17 09:53 Dose: 0.5 mg Pantoprazole Sodium (Protonix Inj) 40 mg IVP Q12H [facility] Zolpidem Tartrate (Ambien) 5 mg PO HS PRN PRN Reason: Insomnia Last Admin: 06/16/17 21:34 Dose: 5 mg - Labs Labs: 04/02/17 14:13 04/01/17 11:27 PT 16.4 SECONDS (9.7-12.2) H 03/26/17 07:47 INR 1.4 03/26/17 07:47 APTT 36 SECONDS (21-34) H 03/26/17 07:47 Assessment and Plan (1) Right lower lobe pneumonia Status: Acute (2) Symptomatic anemia Status: Acute (3) Anemia Status: Acute
[2017-04-03] MEDS: Albuterol 0.042% Inhal Sol (1.25 mg/3 mL) UD INH SCH ×3 (01:37→13:27)
[2017-04-03 08:00] LABS: BASO # 0.1 K/uL (0.0-0.2); BASO % 1.5 % (0.0-2.0); EOS # 1.1 K/uL (0.0-0.7); EOS % 13.2 % (0.0-4.0); HEMATOCRIT 31.7 % (35.0-51.0); LYMPH # 1.3 K/uL (1.0-4.3); LYMPH % 16.4 % (20.0-40.0); MEAN CELL VOLUME 77.8 fL (80.0-94.0); MEAN CORPUSCULAR HGB CONC 32.2 g/dL (33.0-37.0); MEAN PLATELET VOLUME 8.8 fL (7.2-11.7); MONO # 1.3 K/uL (0.0-0.8); MONO % 15.4 % (0.0-10.0); NRBC % 0.1 % (0.0-2.0); RED CELL DISTRIBUTION WIDTH 24.7 % (11.5-14.5); WHITE BLOOD COUNT 8.2 K/uL (4.8-10.8)
[2017-04-03] MEDS: (Novolog) Insulin Aspart, Recombinant 100 u/ml 10 ml vial SC SCH ×2 (08:06→13:04)
[2017-04-03 08:15] LABS: CHLORIDE 104 mmol/L (98-107); POTASSIUM 3.7 mmol/L (3.6-5.2); SODIUM 135 mmol/L (132-148)
[2017-04-03 08:18] LABS: CARBON DIOXIDE 23 mmol/L (22-30); GFR AFRICAN-AMERICAN > 60
[2017-04-03 08:19] LABS: BLOOD UREA NITROGEN 11 mg/dL (9-20); CALCIUM 8.4 mg/dl (8.6-10.4); GLUCOSE,RANDOM 106 mg/dL (75-110)
--- NOTE | 2017-04-03 13:30 | PN ---
DATE: 04/03/2017 LOCATION: 651, bed B. This is a 76-year-old male post upper and lower endoscopy with removal of multiple colon polyps, coul d not have barium enema as per the radiology department, unfortunately. The patient still has intermittent periods of cough, but less than before with periods of mild dyspep kristen. The patient reported also intermittent periods of mild dizziness and light headache. The entire chart is reviewed, including but not limited to the most recent lab and radiology study re sults, current and previous medication lists, current and previous medical events. The latest blood tests done today showed hemoglobin of 10.2, hematocrit 31.7 with low indices, highly suggestive of hy pochromic microcytic anemia with thrombocytopenia of 82 with increased blood glucose level 117, but l ow calcium 8.4. The official report of chest CAT scan as well as the films are seen with possible infectious pr ocess or pulmonary edema with possible neoplasm to be ruled in or out. Also indicative of possible liver cirrhosis. PHYSICAL EXAMINATION: GENERAL: A 76-year-old male. VITAL SIGNS: Afebrile with pulse of 94, respiratory rate 20-22, blood pressure of 122/74. HEENT: Showed pale, dry oral mucoid membrane. Nonicteric sclerae. LUNGS: Few scattered crepitations. Decreased air entry at bases. HEART: Positive S1 and S2 with increased rate. ABDOMEN: Soft with slight distention, generalized tenderness. No mass could be appreciated or signi ficant organomegaly. RECTAL: The patient refused. EXTREMITIES: Without reported clubbing or cyanosis, but slight lower extremity edematous changes. NEUROLOGIC: No reported new neurological deficits, sensory or motor. IMPRESSION: 1. Reexacerbation of peptic ulcer disease. 2. Multiple colon polyps. 3. Diffuse diverticulosis. 4. Symptomatic anemia which could be secondary to above. 5. Abnormal chest CAT scan with possible pneumonia. 6. Thrombocytopenia of unclear etiology that could be secondary to alcoholic liver disease with poss ible liver cirrhosis. 7. Mild ascites with evidence of portal hypertension, clinically and radiologically. 8. Reported history of benign prostatic hypertrophy. 9. Known history of hypertension, hyperlipidemia and diabetes mellitus. SUGGESTION: 1. Continue current management. 2. Well control of the patient's poorly controlled diabetes mellitus. 3. The patient is to be scheduled for barium enema on Wednesday to rule out any neoplastic changes in t he right side of the colon. 4. High-fiber diet, no citrus and no seeds. 5. Continue proton pump inhibitors. 6. Further evaluation to follow. Thank you for letting me participate in your patient's case management. Karin Jesus MD cc: 14 TT: 04/03/2017 13:29:52 Confirmation # [id number] Dictation # [id number]
[2017-04-03] MEDS: Azithromycin 500 MG in Sodium Chloride 0.9% 250 ML IVPB SCH (14:45)
--- NOTE | 2017-04-03 15:31 | CP.PCM.PN ---
Subjective - Date & Time of Evaluation Date of Evaluation: 04/03/17 Time of Evaluation: 10:00 - Subjective Subjective: Pt seen today states feels much better, sob improved , denies any cough, congestion, abdominal pain, N/V/D oob ambulates without sob spo2 remains 94- 95% on activity No overnight events reported by RN Objective - Vital Signs/Intake and Output Vital Signs (last 24 hours): Temp Pulse Resp BP Pulse Ox 98.0 F 100 H 18 129/77 96 04/03/17 07:05 04/03/17 10:32 04/03/17 07:05 04/03/17 10:32 04/03/17 07:05 - Medications Medications: Current Medications Acetaminophen (Tylenol 325mg Tab) 650 mg PO Q6 PRN PRN Reason: Pain, moderate (4-7) Last Admin: 03/31/17 03:39 Dose: 650 mg Albuterol Sulfate (Albuterol 0.042% Inhal Sasha (1.25mg/3ml) Ud) 1.25 mg INH RQ6 [facility]MA Last Admin: 04/03/17 13:27 Dose: 1.25 mg Folic Acid (Folic Acid) 1 mg PO DAILY [facility] Last Admin: 04/03/17 10:33 Dose: 1 mg Hydrochlorothiazide (Microzide) 12.5 mg PO DAILY [facility] Last Admin: 04/03/17 10:33 Dose: 12.5 mg Ceftriaxone Sodium 1 gm/ (Sodium Chloride) 100 mls @ 100 mls/hr IVPB Q24H [facility] Last Admin: 04/02/17 15:51 Dose: 100 mls/hr Azithromycin 500 mg/ Sodium (Chloride) 250 mls @ 250 mls/hr IVPB Q24H [facility] Last Admin: 04/03/17 14:45 Dose: 250 mls/hr Insulin Aspart (Novolog) 0 unit SC ACHS [facility] PRN Reason: Protocol Last Admin: 04/03/17 13:04 Dose: 2 unit Lorazepam (Ativan) 0.5 mg PO BID PRN PRN Reason: Anxiety Last Admin: 04/01/17 09:53 Dose: 0.5 mg Pantoprazole Sodium (Protonix Inj) 40 mg IVP Q12H [facility] Last Admin: 04/03/17 10:33 Dose: 40 mg Zolpidem Tartrate (Ambien) 5 mg PO HS PRN PRN Reason: Insomnia Last Admin: 04/02/17 21:34 Dose: 5 mg - Labs Labs: 04/03/17 07:34 04/03/17 07:34 PT 16.4 SECONDS (9.7-12.2) H 03/26/17 07:47 INR 1.4 03/26/17 07:47 APTT 36 SECONDS (21-34) H 03/26/17 07:47 - Constitutional Appears: Well, No Acute Distress - ENT Exam ENT Exam: Mucous Membranes Moist - Respiratory Exam Respiratory Exam: Rhonchi, NORMAL BREATHING PATTERN - Cardiovascular Exam Cardiovascular Exam: Tachycardia, REGULAR RHYTHM, +S1, +S2 - Neurological Exam Neurological Exam: Alert, Awake, Normal Gait, Oriented x3 Assessment and Plan - Assessment and Plan (Free Text) Assessment: 76 yr old male admitted for symptomatic anemia , sob, pneumonia hgb - improved after 3 unit of PRBC transfusion an dstable Pt also received ferrlicet IV s/p colonoscopy - SEE FULL REPORT FOR DETAILS D/W Dr. mccabe, stable for discharge home otday and f/u with Dr. Mccabe office next week to arrange barrium enema and CT CHEST repeat Discharge plan discussed with patient in details , who understands and agrees with plan Pt instructed to returns to ED if symptoms returns
[2017-04-03 16:21] VITALS: BP 126/76; PULSE 101; RESP 20; TEMP 98.1; O2SAT 95
--- NOTE | 2017-04-03 18:00 | CP.PCM.PN ---
Subjective - Date & Time of Evaluation Date of Evaluation: 04/03/17 Objective - Vital Signs/Intake and Output Vital Signs (last 24 hours): Temp Pulse Resp BP Pulse Ox 98.1 F 101 H 20 126/76 95 04/03/17 15:14 04/03/17 15:30 04/03/17 15:14 04/03/17 15:14 04/03/17 15:14 Intake and Output: 04/03/17 04/03/17 06:59 18:59 Intake Total 425 Balance 425 - Medications Medications: Current Medications Acetaminophen (Tylenol 325mg Tab) 650 mg PO Q6 PRN PRN Reason: Pain, moderate (4-7) Last Admin: 03/31/17 03:39 Dose: 650 mg Albuterol Sulfate (Albuterol 0.042% Inhal Sasha (1.25mg/3ml) Ud) 1.25 mg INH RQ6 NORMA Last Admin: 04/03/17 13:27 Dose: 1.25 mg Folic Acid (Folic Acid) 1 mg PO DAILY NORMA Last Admin: 04/03/17 10:33 Dose: 1 mg Hydrochlorothiazide (Microzide) 12.5 mg PO DAILY NORMA Last Admin: 04/03/17 10:33 Dose: 12.5 mg Ceftriaxone Sodium 1 gm/ (Sodium Chloride) 100 mls @ 100 mls/hr IVPB Q24H NORMA Last Admin: 04/02/17 15:51 Dose: 100 mls/hr Azithromycin 500 mg/ Sodium (Chloride) 250 mls @ 250 mls/hr IVPB Q24H NORMA Last Admin: 04/03/17 14:45 Dose: 250 mls/hr Insulin Aspart (Novolog) 0 unit SC ACHS NORMA PRN Reason: Protocol Last Admin: 04/03/17 13:04 Dose: 2 unit Lorazepam (Ativan) 0.5 mg PO BID PRN PRN Reason: Anxiety Last Admin: 04/01/17 09:53 Dose: 0.5 mg Pantoprazole Sodium (Protonix Inj) 40 mg IVP Q12H NORMA Last Admin: 04/03/17 10:33 Dose: 40 mg Zolpidem Tartrate (Ambien) 5 mg PO HS PRN PRN Reason: Insomnia Last Admin: 04/02/17 21:34 Dose: 5 mg - Labs Labs: 04/03/17 07:34 04/03/17 07:34 PT 16.4 SECONDS (9.7-12.2) H 03/26/17 07:47 INR 1.4 03/26/17 07:47 APTT 36 SECONDS (21-34) H 03/26/17 07:47 Assessment and Plan (1) Right lower lobe pneumonia Status: Acute (2) Symptomatic anemia Status: Acute (3) Anemia Status: Acute
--- NOTE | 2017-04-04 23:30 | CP.PCM.DIS ---
Provider - Provider Date of Admission: 03/27/17 13:18 Attending physician: Santhosh Mccabe MD Diagnosis - Discharge Diagnosis (1) Right lower lobe pneumonia Status: Acute (2) Symptomatic anemia Status: Acute (3) Anemia Status: Acute Hospital Course - Lab Results Lab Results: Most Recent Lab Values WBC 8.2 K/uL (4.8-10.8) 04/03/17 07:34 RBC 4.07 Mil/uL (4.40-5.90) L 04/03/17 07:34 Hgb 10.2 g/dL (12.0-18.0) L 04/03/17 07:34 Hct 31.7 % (35.0-51.0) L 04/03/17 07:34 MCV 77.8 fL (80.0-94.0) L 04/03/17 07:34 MCH 25.0 pg (27.0-31.0) L 04/03/17 07:34 MCHC 32.2 g/dL (33.0-37.0) L 04/03/17 07:34 RDW 24.7 % (11.5-14.5) H 04/03/17 07:34 Plt Count 82 K/uL (130-400) L 04/03/17 07:34 MPV 8.8 fL (7.2-11.7) 04/03/17 07:34 Neut % (Auto) 53.5 % (50.0-75.0) 04/03/17 07:34 Lymph % (Auto) 16.4 % (20.0-40.0) L 04/03/17 07:34 [place] % (Auto) 15.4 % (0.0-10.0) H 04/03/17 07:34 Eos % (Auto) 13.2 % (0.0-4.0) H 04/03/17 07:34 Baso % (Auto) 1.5 % (0.0-2.0) 04/03/17 07:34 Neut # 4.4 K/uL (1.8-7.0) 04/03/17 07:34 Lymph # 1.3 K/uL (1.0-4.3) 04/03/17 07:34 [place] # 1.3 K/uL (0.0-0.8) H 04/03/17 07:34 Eos # 1.1 K/uL (0.0-0.7) H 04/03/17 07:34 Baso # 0.1 K/uL (0.0-0.2) 04/03/17 07:34 Differential Comment 04/03/17 07:34 PT 16.4 SECONDS (9.7-12.2) H 03/26/17 07:47 INR 1.4 03/26/17 07:47 APTT 36 SECONDS (21-34) H 03/26/17 07:47 Sodium 135 mmol/L (132-148) 04/03/17 07:34 Potassium 3.7 mmol/L (3.6-5.2) 04/03/17 07:34 Chloride 104 mmol/L (98-107) 04/03/17 07:34 Carbon Dioxide 23 mmol/L (22-30) 04/03/17 07:34 Anion Gap 12 (10-20) 04/03/17 07:34 BUN 11 mg/dL (9-20) 04/03/17 07:34 Creatinine 0.8 MG/DL (0.8-1.5) 04/03/17 07:34 Est GFR ( Amer) > 60 04/03/17 07:34 Est GFR (Non-Af Amer) > 60 04/03/17 07:34 POC Glucose (mg/dL) 221 mg/dL (65-110) H 04/03/17 11:26 Random Glucose 106 mg/dL (75-110) 04/03/17 07:34 Calcium 8.4 mg/dl (8.6-10.4) L 04/03/17 07:34 Phosphorus 2.6 mg/dL (2.5-4.5) 03/30/17 11:22 Magnesium 2.0 mg/dL (1.6-2.3) 03/31/17 07:27 Iron 13 ug/dL (49-181) L 03/26/17 08:04 TIBC 338 ug/dL (250-450) 03/26/17 08:04 % Saturation 4 (20-55) L 03/26/17 08:04 Total Bilirubin 2.1 mg/dL (0.2-1.3) H 03/30/17 11:22 AST 46 U/L (17-59) 03/30/17 11:22 ALT 37 U/L (21-72) 03/30/17 11:22 Alkaline Phosphatase 119 U/L (38-126) 03/30/17 11:22 NT-Pro-B Natriuret Pep 205 pg/mL (0-900) 04/01/17 19:22 Total Protein 5.5 g/dL (6.3-8.3) L 03/30/17 11:22 Albumin 2.5 g/dL (3.5-5.0) L D 03/30/17 11:22 Globulin 2.9 gm/dL (2.2-3.9) 03/30/17 11:22 Albumin/Globulin Ratio 0.9 (1.0-2.1) L 03/30/17 11:22 Alpha Fetoprotein 2.0 ng/mL (0.0-7.5) 03/27/17 11:31 Carcinoembryonic Ag 2.5 ng/mL (0-3.0) 03/27/17 11:31 CA 19-9 Antigen 81.4 U/mL (0-37) H 03/27/17 11:31 Prostate Specific Ag 3.79 ng/mL (0.00-4.0) 04/01/17 11:27 Vitamin B12 938 pg/mL (239-931) H 03/26/17 07:47 Folate 6.1 ng/mL 03/26/17 07:47 Procalcitonin 0.15 NG/ML (0.19-0.49) L 04/01/17 19:22 Urine Color Yellow (YELLOW) 03/26/17 07:59 Urine Clarity Hazy (Clear) 03/26/17 07:59 Urine pH 6.0 (5.0-8.0) 03/26/17 07:59 Ur Specific [place] 1.015 (1.003-1.030) 03/26/17 07:59 Urine Protein Negative mg/dL (NEGATIVE) 03/26/17 07:59 Urine Glucose (UA) Normal mg/dL (Normal) 03/26/17 07:59 Urine Ketones Negative mg/dL (NEGATIVE) 03/26/17 07:59 Urine Blood Negative (NEGATIVE) 03/26/17 07:59 Urine Nitrate Negative (NEGATIVE) 03/26/17 07:59 Urine Bilirubin Negative (NEGATIVE) 03/26/17 07:59 Urine Urobilinogen 2.0 mg/dL (0.2-1.0) 03/26/17 07:59 Ur Leukocyte Esterase Neg [place]/uL (Negative) 03/26/17 07:59 Urine WBC (Auto) 2 /hpf (0-5) 03/26/17 07:59 Urine RBC (Auto) 1 /hpf (0-3) 03/26/17 07:59 Ur Squamous Epith Cells < 1 /hpf (0-5) 03/26/17 07:59 Amorphous Sediment Occ /ul (<OCC) H 03/26/17 07:59 Urine Bacteria Rare (<OCC) 03/26/17 07:59 Stool Occult Blood Positive (NEGATIVE) H 03/30/17 07:03 Blood Type O POSITIVE 03/30/17 14:32 Antibody Screen Negative 03/30/17 14:32 Discharge Exam - Head Exam Head Exam: ATRAUMATIC, NORMOCEPHALIC Discharge Plan - Discharge Medications Prescriptions: Amoxicillin/Clavulanate [Augmentin 875 MG-125 MG] 1 tab PO Q12 #10 tab Ferrous Sulfate [Ferosul] 325 mg PO BID #60 tablet Folic Acid 1 mg PO DAILY #30 tab Albuterol HFA [Ventolin HFA 90 mcg/actuation (8 g)] 0.09 mg IH Q6 #2 puff - Follow Up Plan Condition: GOOD Disposition: HOME/ ROUTINE Instructions: Albuterol (By breathing), Amoxicillin/Clavulanate Potassium (By mouth), Folic Acid (By mouth), Viral Pneumonia (DC), Heart Healthy Diet (DC), Anemia (DC) Additional Instructions: Please f/u with Dr. Mccabe office next wednesday need to schedule barrium enema and repeat CT chest for f/u continue medication as per Med. REc. 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
== END 2017-04-03 18:40 | disposition home or self-care (01) | DRG 393 ==
LOC: C.ER 06:34 → C.6T 10:48 → OBSVTOIN 03-27 13:18
PROVIDERS: ADMIT Internal Medicine; ATTEND Internal Medicine
PROC: 0DJ08ZZ Inspection of Upper Intestinal Tract, Via Natural or Artificial Opening Endoscopic (ICD-10-PCS; 2017-03-29)
PROC: 0DBP8ZZ Excision of Rectum, Via Natural or Artificial Opening Endoscopic (ICD-10-PCS; principal; 2017-03-29 11:00)
PROC: 0DBL8ZX Excision of Transverse Colon, Via Natural or Artificial Opening Endoscopic, Diagnostic (ICD-10-PCS; 2017-03-29 11:00)
PROC: 0D9M8ZX Drainage of Descending Colon, Via Natural or Artificial Opening Endoscopic, Diagnostic (ICD-10-PCS; 2017-03-30)
DX: D12.3 Benign neoplasm of transverse colon (principal); J18.9 Pneumonia, unspecified organism; D61.818 Other pancytopenia; E87.2 Acidosis; E46 Unspecified protein-calorie malnutrition; K76.6 Portal hypertension; R18.8 Other ascites; E11.65 Type 2 diabetes mellitus with hyperglycemia; D50.9 Iron deficiency anemia, unspecified; E78.00 Pure hypercholesterolemia, unspecified; I51.7 Cardiomegaly; K27.9 Peptic ulcer, site unspecified, unspecified as acute or chronic, without hemorrhage or perforation; K52.9 Noninfective gastroenteritis and colitis, unspecified; K57.90 Diverticulosis of intestine, part unspecified, without perforation or abscess without bleeding; N40.0 Benign prostatic hyperplasia without lower urinary tract symptoms; Z87.891 Personal history of nicotine dependence; K74.60 Unspecified cirrhosis of liver; Z68.22 Body mass index [BMI] 22.0-22.9, adult; K64.8 Other hemorrhoids; K62.1 Rectal polyp; K20.9 Esophagitis, unspecified; K44.9 Diaphragmatic hernia without obstruction or gangrene; K29.70 Gastritis, unspecified, without bleeding

== ENCOUNTER 2017-07-13 10:44 | Inpatient (IN) | payer OTHER ==
[2017-07-13 11:56] LABS: BASO % 0.8 % (0.0-2.0); EOS # 0.3 K/uL (0.0-0.7); EOS % 5.9 % (0.0-4.0); HEMATOCRIT 30.5 % (35.0-51.0); LYMPH # 0.9 K/uL (1.0-4.3); LYMPH % 19.9 % (20.0-40.0); MEAN CORPUSCULAR HEMOGLOBIN 34.4 pg (27.0-31.0); MEAN CORPUSCULAR HGB CONC 34.1 g/dL (33.0-37.0); MEAN PLATELET VOLUME 8.6 fL (7.2-11.7); MONO # 0.5 K/uL (0.0-0.8); MONO % 10.8 % (0.0-10.0); WHITE BLOOD COUNT 4.4 K/uL (4.8-10.8)
[2017-07-13 12:06] LABS: MEAN CELL VOLUME 100.9 fL (80.0-94.0)
[2017-07-13 12:10] LABS: CHLORIDE 103 mmol/L (98-107); POTASSIUM 4.5 mmol/L (3.6-5.2); SODIUM 139 mmol/L (132-148)
[2017-07-13 12:12] LABS: AMYLASE 70 U/L (30-110); CARBON DIOXIDE 21 mmol/L (22-30); GFR AFRICAN-AMERICAN > 60
[2017-07-13 12:13] LABS: ALB/GLOB RATIO 0.7 (1.0-2.1); ALKALINE PHOSPHATASE 146 U/L (38-126); ALT/SGPT 30 U/L (21-72); AST/SGOT 35 U/L (17-59); BILIRUBIN,TOTAL 3.3 mg/dL (0.2-1.3); BLOOD UREA NITROGEN 15 mg/dL (9-20); CALCIUM 9.1 mg/dl (8.6-10.4); GLUCOSE,RANDOM 88 mg/dL (75-110)
--- NOTE | 2017-07-13 13:12 | RAD ---
PROCEDURE: CHEST RADIOGRAPH, 1 VIEW HISTORY: SOB and pain COMPARISON: 04/27/2017 FINDINGS: LUNGS: Lung volumes more shallow than before Bibasilar subsegmental/discoid atelectasis with or without linear scarring. Bibasilar subsegmental minimal infiltrates -not excluded. The atelectasis favored. PLEURA: No pneumothorax Small posterior dependent bilateral pleural effusions not excluded -shallow lung volumes impedes this assessment CARDIOVASCULAR: Mild cardiomegaly- left ventricular enlargement configuration. Carotid pulmonary central vasculature OSSEOUS STRUCTURES: No significant abnormalities. VISUALIZED UPPER ABDOMEN: Normal. OTHER FINDINGS: None. IMPRESSION: Limited exam given shallow inspiration. Bibasilar subsegmental atelectasis favored.
--- NOTE | 2017-07-13 13:20 | C.PDOC ---
History Of Present Illness 77 year old male, whose PMHx includes Anemia, Ascites, Diabetes, and Hypertension, presents to the ED for evaluation of chest pain and shortness of breath which began after he sustained a fall earlier today. Patient states he fell out of his bed while trying to dress himself. He notes he fell forward hitting his chest, and now has pain to the area. Additionally, patient complains of decreased appetite, weakness, and swelling to his abdomen and legs for a few days. Patient states he last had an abdominal tap around 2 weeks ago. He denies head injury/LOC. Time Seen by Provider: 07/13/17 11:13 Chief Complaint (Nursing): Back Pain History Per: Patient History/Exam Limitations: no limitations Onset/Duration Of Symptoms: Hrs Current Symptoms Are (Timing): Still Present Additional History Per: Patient Past Medical History Reviewed: Historical Data, Nursing Documentation, Vital Signs Vital Signs: Last Vital Signs Temp 97.9 F 07/13/17 10:48 Pulse 94 H 07/13/17 16:25 Resp 22 07/13/17 16:25 BP 130/85 07/13/17 16:25 Pulse Ox 96 07/13/17 16:25 - Medical History PMH: Anemia, Anxiety, Benign Prostatic Hyperplasia, Diabetes, HTN, Hypercholesterolemia Surgical History: No Surg Hx - [facility] Procedures DRAINAGE OF DESCENDING COLON, ENDO, DIAGN (03/27/17) EXCISION OF RECTUM, ENDO (03/27/17) EXCISION OF TRANSVERSE COLON, ENDO, DIAGN (03/27/17) INSPECTION OF UPPER INTESTINAL TRACT, ENDO (03/27/17) Family History: States: Unknown Family Hx - Social History Hx Tobacco Use: No Hx Alcohol Use: Yes Hx Substance Use: No - Immunization History Hx Tetanus Toxoid Vaccination: No Hx Influenza Vaccination: No Hx Pneumococcal Vaccination: No Review Of Systems Cardiovascular: Positive for: Chest Pain Respiratory: Positive for: Shortness of Breath Gastrointestinal: Positive for: Other (abdominal swelling ). Negative for: Nausea, Vomiting Musculoskeletal: Positive for: Other (leg swelling ) Neurological: Negative for: Other (head injury/LOC ) Physical Exam - Physical Exam Appears: Non-toxic, No Acute Distress, Other (thin, frail, elderly) Skin: Warm, Dry, Jaundice Head: Atraumatic, Normacephalic Eye(s): bilateral: EOMI, Scleral Icterus Oral Mucosa: Moist Neck: Normal ROM, No Midline Cervical Tenderness, No Paracervical Tenderness, Supple Chest: Symmetrical, No Deformity, Tenderness (anterior wall ) Cardiovascular: Rhythm Regular, No Murmur Respiratory: Decreased Breath Sounds (bilaterally, poor inspiration), No Rales, No Rhonchi, No Wheezing Gastrointestinal/Abdominal: Soft, No Tenderness, No Guarding, No Rebound, Ascites Back: Normal Inspection Extremity: Normal ROM, No Tenderness, Pedal Edema (pitting bilaerally), No Calf Tenderness, Capillary Refill (less than 2 seconds ) Pulses: Left Dorsalis Pedis: Normal, Right Dorsalis Pedis: Normal Neurological/Psych: Oriented x3, Normal Speech Gait: Unable To Assess ED Course And Treatment - Laboratory Results Result Diagrams: 07/13/17 11:51 07/13/17 11:51 Lab Interpretation: Abnormal ECG: Interpreted By Me, Viewed By Me ECG Rhythm: Sinus Rhythm ECG Interpretation: No Acute Changes, Abnormal Interpretation Of ECG: NS 88 bpm with prolonged QT Rate From EC O2 Sat by Pulse Oximetry: 97 (on RA) Pulse Ox Interpretation: Normal - Other Rad CXR X-Ray: Interpreted by Me, Viewed By Me, Read By Radiologist Interpretation: PROCEDURE: CHEST RADIOGRAPH, 1 VIEW. HISTORY: SOB and pain. COMPARISON: 04/27/2017. FINDINGS: LUNGS: Lung volumes more shallow than before. Bibasilar subsegmental/discoid atelectasis with or without linear scarring. Bibasilar subsegmental minimal infiltrates -not excluded. The atelectasis favored. PLEURA: No pneumothorax. Small posterior dependent bilateral pleural effusions not excluded -shallow lung volumes impedes this assessment. CARDIOVASCULAR: Mild cardiomegaly- left ventricular enlargement configuration. Carotid pulmonary central vasculature. OSSEOUS STRUCTURES: No significant abnormalities. VISUALIZED UPPER ABDOMEN: Normal. OTHER FINDINGS: None. IMPRESSION: Limited exam given shallow inspiration. Bibasilar subsegmental atelectasis favored. Medical Decision Making Medical Decision Making: Impression: fall from bed, dyspnea, weakness, near syncope Plan: * EKG * threat monitoring analyst * Labs * CXR Progress: Labs reviewed showing chronic anemia, dehydration. BNP and troponin neg and WNL. Patient reevaluated and remains unchanged. Based on history and exam, risk for falls at home and failure to thrive. Plan for observation and will contact PCP. [phone] Mccabe and accepted admission Disposition - Disposition Disposition: HOSPITALIZED Disposition Time: 13:19 Condition: FAIR - POA Present On Arrival: None - Clinical Impression Clinical Impression: Dyspnea, CHF (congestive heart failure), Risk for falls - PA / REVENUE OFFICER / Resident Statement MD/DO has reviewed & agrees with the documentation as recorded. - Scribe Statement The provider has reviewed the documentation as recorded by the Scribe (Marian Mercer) All medical record entries made by the Scribe were at my direction and personally dictated by me. I have reviewed the chart and agree that the record accurately reflects my personal performance of the history, physical exam, medical decision making, and the department course for this patient. I have also personally directed, reviewed, and agree with the discharge instructions and disposition. Decision To Admit - Pt Status Changed To: Hospital Disposition Of: Observation - . Bed Request Type: Telemetry Admitting Physician: Santhosh Mccabe Patient Diagnosis: Dyspnea, CHF (congestive heart failure), Risk for falls
[2017-07-13] MEDS ORDERED: Sodium Chloride 0.9% 1,000 ML IV ONE (13:22)
[2017-07-13] MEDS ORDERED: Sodium Chloride 0.9% 1,000 ML ONE (13:38)
[2017-07-13 17:41] LABS: RBC URINE < 1 /hpf (0-3); URINE BACTERIA RARE (<OCC); URINE BILIRUBIN NEGATIVE (NEGATIVE); URINE BLOOD NEGATIVE (NEGATIVE); URINE COLOR Yellow (YELLOW); URINE GLUCOSE (UA) NORMAL (Normal); URINE KETONE NEGATIVE (NEGATIVE); URINE LEUKOCYTE ESTERASE NEG Leu/uL (Negative); URINE PROTEIN NEGATIVE (NEGATIVE); URINE UROBILINOGEN NORMAL mg/dL (0.2-1.0)
[2017-07-13 20:16] LABS: DRAW SITE VENOUS; VENOUS BLOOD GAS BASE EXCESS 0.3 mmol/L (0.0-2.0); VENOUS BLOOD GAS PCO2 32 mmHg (40-60); VENOUS BLOOD PH 7.47 (7.32-7.43)
[2017-07-13 20:49] LABS: INR 1.4
[2017-07-13] MEDS: (Novolog) Insulin Aspart, Recombinant 100 u/ml 10 ml vial SC SCH (22:06)
--- NOTE | 2017-07-13 23:00 | CP.PCM.HP ---
History of Present Illness - History of Present Illness History of Present Illness: CC; FALL CHEST WLL TRAUMA HPI; 77 year old male, whose PMHx includes Anemia, Ascites, Diabetes, and Hypertension, presents to the ED for evaluation of chest pain and shortness of breath which began after he sustained a fall earlier today. Patient states he fell out of his bed while trying to dress himself. He notes he fell forward hitting his chest, and now has pain to the area. Additionally, patient complains of decreased appetite, weakness, and swelling to his abdomen and legs for a few days. Patient states he last had an abdominal tap around 2 weeks ago. He denies head injury/LOC. Present on Admission - Present on Admission Any Indicators Present on Admission: Yes Review of Systems - Review of Systems Systems not reviewed;Unavailable: Acuity of Condition - Constitutional Constitutional: Anorexia, Fatigue, Lethargy, Malaise, Weakness - Cardiovascular Cardiovascular: Chest Pain, Lightheadedness - Gastrointestinal Gastrointestinal: Abdominal Pain - Genitourinary Genitourinary: Urinary Frequency - Musculoskeletal Musculoskeletal: Muscle Weakness, Myalgias - Integumentary Integumentary: absent: As Per HPI, Acne, Alopecia, Bleeding Lesions, Change in Hair, Change in Nails, Change in Pigmentation, Changing Lesions, Dry Skin, Erythema, Furuncle, Hirsutism, Lesions, New Lesions, Non-Healing Lesions, Photosensitivity, Pruritus, Rash, Skin Pain, Skin Ulcer, Sores, Striae, Swelling , Unusual Bruising, Wounds, Jaundice, Other - Neurological Neurological: absent: As Per HPI, Abnormal Gait, Abnormal Hearing, Abnormal Movements, Abnormal Speech, Behavioral Changes, Burning Sensations, Confusion, Convulsions, Disequilibrium, Dizziness, Numbness, Focal Weakness, Frequent Falls , Headaches, Lack of Coordination, Loss of Vision, Memory Loss, Paresthesias, Radicular Pain, Restless Legs, Sensory Deficit, Syncope, Tingling, Tremor, Vertigo, Weakness, Other Visual Disturbances, Other Past Patient History - Infectious Disease Hx of Infectious Diseases: None - Past Medical History & Family History Past Medical History?: Yes - Past Social History Smoking Status: Former Smoker - CARDIAC Hx Cardiac Disorders: Yes Hx Hypercholesterolemia: Yes Hx Hypertension: Yes Hx Peripheral Edema: Yes - PULMONARY Hx Respiratory Disorders: Yes Hx Pneumonia: Yes - NEUROLOGICAL Hx Neurological Disorder: No - HEENT Hx HEENT Problems: No - RENAL Hx Chronic Kidney Disease: No - ENDOCRINE/METABOLIC Hx Endocrine Disorders: Yes Hx Diabetes Mellitus Type 2: Yes - HEMATOLOGICAL/ONCOLOGICAL Hx Blood Disorders: Yes Hx Anemia: Yes Hx Blood Transfusions: Yes Hx Blood Transfusion Reaction: No - INTEGUMENTARY Hx Dermatological Problems: Yes Other/Comment: rt. hip and left hip sores, Hx of itching - MUSCULOSKELETAL/RHEUMATOLOGICAL Hx Falls: Yes - GASTROINTESTINAL Hx Gastrointestinal Disorders: Yes Hx Nausea: Yes Other/Comment: hx liver cirrhosis - GENITOURINARY/GYNECOLOGICAL Hx Genitourinary Disorders: Yes Hx Incontinence: Yes Hx Prostate Problems: Yes - PSYCHIATRIC Hx Substance Use: No - SURGICAL HISTORY Hx Surgeries: No Other/Comment: Prostate sx - ANESTHESIA Hx Anesthesia: No Hx Anesthesia Reactions: No Hx Malignant Hyperthermia: No Has any member of the family had a problem w/ anesthesia?: No Meds Allergies/Adverse Reactions: Allergies Allergy/AdvReac Type Severity Reaction Status Date / Time No Known Allergies Allergy Verified 07/13/17 10:56 Physical Exam - Constitutional Appears: No Acute Distress, Confused - Head Exam Head Exam: ATRAUMATIC, NORMAL INSPECTION, NORMOCEPHALIC - Eye Exam Eye Exam: EOMI, Normal appearance, PERRL Pupil Exam: NORMAL ACCOMODATION, PERRL - Respiratory Exam Respiratory Exam: Clear to Auscultation Bilateral, NORMAL BREATHING PATTERN - Cardiovascular Exam Cardiovascular Exam: +S1, +S2 Additional comments: S3 POS - GI/Abdominal Exam GI & Abdominal Exam: Distended, Normal Bowel Sounds, Soft. absent: Tenderness Additional comments: POSITIVE SHIFTING DULLNESS Results - Vital Signs Recent Vital Signs: Last Vital Signs Temp 97.9 F 07/13/17 18:03 Pulse 93 H 07/13/17 18:03 Resp 20 07/13/17 18:03 BP 131/71 07/13/17 18:03 Pulse Ox 96 07/13/17 18:03 - Labs Result Diagrams: 07/13/17 11:51 07/13/17 11:51 Labs: Laboratory Results - last 24 hr 07/13/17 07/13/17 07/13/17 11:15 11:51 11:51 WBC 4.4 L RBC 3.02 L Hgb 10.4 L Hct 30.5 L MCV 100.9 H D MCH 34.4 H MCHC 34.1 RDW 15.0 H Plt Count 91 L MPV 8.6 Neut % (Auto) 62.6 Lymph % (Auto) 19.9 L [place] % (Auto) 10.8 H Eos % (Auto) 5.9 H Baso % (Auto) 0.8 Neut # 2.8 Lymph # 0.9 L Nash # 0.5 Eos # 0.3 Baso # 0.0 PT INR APTT Puncture Site pO2 Marcell[place] Test VBG pH VBG pCO2 VBG HCO3 VBG O2 Sat (Calc) VBG Base Excess Sodium 139 Potassium 4.5 Chloride 103 Carbon Dioxide 21 L Anion Gap 20 BUN 15 Creatinine 0.7 L Est GFR ( Amer) > 60 Est GFR (Non-Af Amer) > 60 POC Glucose (mg/dL) 107 Random Glucose 88 Calcium 9.1 Total Bilirubin 3.3 H AST 35 ALT 30 Alkaline Phosphatase 146 H Ammonia Total Creatine Kinase CK-MB (Mass) Troponin I < 0.0120 Troponin I, Quant NT-Pro-B Natriuret Pep 187 Total Protein 7.0 Albumin 2.9 L Globulin 4.1 H Albumin/Globulin Ratio 0.7 L Amylase 70 Lipase 139 Urine Color Urine Clarity Urine pH Ur Specific [place] Urine Protein Urine Glucose (UA) Urine Ketones Urine Blood Urine Nitrate Urine Bilirubin Urine Urobilinogen Ur Leukocyte Esterase Urine RBC (Auto) Urine Bacteria 07/13/17 07/13/17 07/13/17 13:15 17:22 20:13 WBC RBC Hgb Hct MCV MCH MCHC RDW Plt Count MPV Neut % (Auto) Lymph % (Auto) [place] % (Auto) Eos % (Auto) Baso % (Auto) Neut # Lymph # Nash # Eos # Baso # PT INR APTT Puncture Site Venous pO2 53 Marcellus Test Na VBG pH 7.47 H VBG pCO2 32 L VBG HCO3 24.9 VBG O2 Sat (Calc) 92.4 H VBG Base Excess 0.3 Sodium Potassium Chloride Carbon Dioxide Anion Gap BUN Creatinine Est GFR ( Amer) Est GFR (Non-Af Amer) POC Glucose (mg/dL) 101 Random Glucose Calcium Total Bilirubin AST ALT Alkaline Phosphatase Ammonia Total Creatine Kinase CK-MB (Mass) Troponin I Troponin I, Quant NT-Pro-B Natriuret Pep Total Protein Albumin Globulin Albumin/Globulin Ratio Amylase Lipase Urine Color Yellow Urine Clarity Clear Urine pH 7.0 Ur Specific [place] 1.008 Urine Protein Negative Urine Glucose (UA) Normal Urine Ketones Negative Urine Blood Negative Urine Nitrate Negative Urine Bilirubin Negative Urine Urobilinogen Normal Ur Leukocyte Esterase Neg Urine RBC (Auto) < 1 Urine Bacteria Rare 07/13/17 07/13/17 07/13/17 20:35 20:35 20:35 WBC RBC Hgb Hct MCV MCH MCHC RDW Plt Count MPV Neut % (Auto) Lymph % (Auto) [place] % (Auto) Eos % (Auto) Baso % (Auto) Neut # Lymph # Nash # Eos # Baso # PT 16.2 H INR 1.4 APTT 36 H Puncture Site pO2 [place] Test VBG pH VBG pCO2 VBG HCO3 VBG O2 Sat (Calc) VBG Base Excess Sodium Potassium Chloride Carbon Dioxide Anion Gap BUN Creatinine Est GFR ( Amer) Est GFR (Non-Af Amer) POC Glucose (mg/dL) Random Glucose Calcium Total Bilirubin AST ALT Alkaline Phosphatase Ammonia 91 H Total Creatine Kinase 58 CK-MB (Mass) 0.64 Troponin I Troponin I, Quant < 0.0120 NT-Pro-B Natriuret Pep Total Protein Albumin Globulin Albumin/Globulin Ratio Amylase Lipase Urine Color Urine Clarity Urine pH Ur Specific [place] Urine Protein Urine Glucose (UA) Urine Ketones Urine Blood Urine Nitrate Urine Bilirubin Urine Urobilinogen Ur Leukocyte Esterase Urine RBC (Auto) Urine Bacteria 07/13/17 21:08 WBC RBC Hgb Hct MCV MCH MCHC RDW Plt Count MPV Neut % (Auto) Lymph % (Auto) [place] % (Auto) Eos % (Auto) Baso % (Auto) Neut # Lymph # [place] # Eos # Baso # PT INR APTT Puncture Site pO2 [place] Test VBG pH VBG pCO2 VBG HCO3 VBG O2 Sat (Calc) VBG Base Excess Sodium Potassium Chloride Carbon Dioxide Anion Gap BUN Creatinine Est GFR ( Amer) Est GFR (Non-Af Amer) POC Glucose (mg/dL) 105 Random Glucose Calcium Total Bilirubin AST ALT Alkaline Phosphatase Ammonia Total Creatine Kinase CK-MB (Mass) Troponin I Troponin I, Quant NT-Pro-B Natriuret Pep Total Protein Albumin Globulin Albumin/Globulin Ratio Amylase Lipase Urine Color Urine Clarity Urine pH Ur Specific [place] Urine Protein Urine Glucose (UA) Urine Ketones Urine Blood Urine Nitrate Urine Bilirubin Urine Urobilinogen Ur Leukocyte Esterase Urine RBC (Auto) Urine Bacteria Assessment & Plan (1) Alcoholic cirrhosis of liver with ascites Status: Acute (2) CHF (congestive heart failure) Status: Acute (3) Confused Status: Acute (4) Dyspnea Status: Acute (5) Fall Status: Acute (6) HTN (hypertension) Status: Acute (7) Dehydration Status: Acute
[2017-07-14] MEDS: (Novolog) Insulin Aspart, Recombinant 100 u/ml 10 ml vial SC SCH ×4 (08:09→22:00)
[2017-07-14] MEDS: metroNIDAZOLE IV 500 mg/100 ml 500 MG/100 ML BAG IVPB SCH (22:42)
--- NOTE | 2017-07-14 22:44 | CP.PCM.PN ---
Subjective - Date & Time of Evaluation Date of Evaluation: 07/14/17 Time of Evaluation: 21:00 - Subjective Subjective: PT IS CONFUSED AND DELIRIOUS, AMMONIA LEVEL IS HIGH, PT C/O ABDOMINAL PAIN Objective - Vital Signs/Intake and Output Vital Signs (last 24 hours): Temp Pulse Resp BP Pulse Ox 97.6 F 88 20 122/72 95 07/14/17 16:00 07/14/17 16:00 07/14/17 16:00 07/14/17 16:00 07/14/17 16:00 - Medications Medications: Current Medications Famotidine (Pepcid) 20 mg PO DAILY [facility] Ferrous Sulfate (Feosol) 325 mg PO BID [facility] Last Admin: 07/14/17 19:00 Dose: 325 mg Folic Acid (Folic Acid) 1 mg PO DAILY [facility] Last Admin: 07/14/17 09:20 Dose: 1 mg Heparin Sodium (Porcine) (Heparin) 5,000 units SC Q8 [facility] Last Admin: 07/14/17 21:16 Dose: 5,000 units Metronidazole (Flagyl) 500 mg in 100 mls @ 100 mls/hr IVPB Q8H [facility] Insulin Aspart (Novolog) 0 unit SC ACHS [facility] PRN Reason: Protocol Last Admin: 07/14/17 16:30 Dose: Not Given Lactulose (Enulose) 20 gm PO [facility] Last Admin: 07/14/17 21:16 Dose: 20 gm Rosuvastatin Calcium (Crestor) 20 mg PO [facility] Last Admin: 07/14/17 21:16 Dose: 20 mg - Labs Labs: 07/13/17 11:51 07/13/17 11:51 PT 16.2 SECONDS (9.7-12.2) H 07/13/17 20:35 INR 1.4 07/13/17 20:35 APTT 36 SECONDS (21-34) H 07/13/17 20:35 - Constitutional Appears: Toxic, Confused - Head Exam Head Exam: ATRAUMATIC, NORMAL INSPECTION, NORMOCEPHALIC - Eye Exam Eye Exam: EOMI, Normal appearance, PERRL Pupil Exam: NORMAL ACCOMODATION, PERRL - Respiratory Exam Respiratory Exam: Clear to Ausculation Bilateral, NORMAL BREATHING PATTERN - Cardiovascular Exam Cardiovascular Exam: REGULAR RHYTHM, +S1, +S2. absent: Murmur Additional comments: S3 POSITIVE - GI/Abdominal Exam GI & Abdominal Exam: Distended, Soft, Normal Bowel Sounds. absent: Tenderness Additional comments: POSITIVE SHIFTING DULLNESS Assessment and Plan (1) Fall Status: Acute (2) Confused Status: Acute (3) CHF (congestive heart failure) Status: Acute (4) Alcoholic cirrhosis of liver with ascites Assessment & Plan: GI CONSULT CHECK NH3 LEVEL Status: Acute (5) HTN (hypertension) Assessment & Plan: I STOOPED HER B.P MED B.P IS STABLE WITHOUT MEDICATION Status: Acute (6) Anemia Status: Acute
[2017-07-15] MEDS: metroNIDAZOLE IV 500 mg/100 ml 500 MG/100 ML BAG IVPB SCH ×3 (05:21→21:34)
[2017-07-15 07:31] LABS: BASO # 0.1 K/uL (0.0-0.2); BASO % 1.3 % (0.0-2.0); EOS # 0.5 K/uL (0.0-0.7); EOS % 9.3 % (0.0-4.0); HEMATOCRIT 27.7 % (35.0-51.0); LYMPH # 1.2 K/uL (1.0-4.3); LYMPH % 22.8 % (20.0-40.0); MEAN CORPUSCULAR HEMOGLOBIN 34.6 pg (27.0-31.0); MEAN CORPUSCULAR HGB CONC 34.6 g/dL (33.0-37.0); MEAN PLATELET VOLUME 9.1 fL (7.2-11.7); MONO # 0.8 K/uL (0.0-0.8); MONO % 15.6 % (0.0-10.0); RED CELL DISTRIBUTION WIDTH 15.2 % (11.5-14.5); WHITE BLOOD COUNT 5.4 K/uL (4.8-10.8)
[2017-07-15] MEDS: (Novolog) Insulin Aspart, Recombinant 100 u/ml 10 ml vial SC SCH ×4 (07:45→21:35)
[2017-07-15 07:51] LABS: CHLORIDE 104 mmol/L (98-107)
[2017-07-15 07:52] LABS: POTASSIUM 3.8 mmol/L (3.6-5.2); SODIUM 138 mmol/L (132-148)
[2017-07-15 07:54] LABS: AST/SGOT 36 U/L (17-59); BILIRUBIN,TOTAL 2.4 mg/dL (0.2-1.3); CARBON DIOXIDE 21 mmol/L (22-30); GFR AFRICAN-AMERICAN > 60
[2017-07-15 07:55] LABS: ALB/GLOB RATIO 0.6 (1.0-2.1); ALKALINE PHOSPHATASE 114 U/L (38-126); ALT/SGPT 29 U/L (21-72); BLOOD UREA NITROGEN 15 mg/dL (9-20); CALCIUM 8.3 mg/dl (8.6-10.4); GLUCOSE,RANDOM 125 mg/dL (75-110)
[2017-07-15] MEDS ORDERED: Phytonadione 10 mg/ml Inj (Adult) SC ONE (12:15)
[2017-07-15 14:23] LABS: INR 1.5
[2017-07-15 14:36] LABS: CARCINOEMBRYONIC ANTIGEN 4.5 ng/mL (0-3.0)
[2017-07-15 14:40] LABS: CA 19-9 62.7 U/mL (0-37)
--- NOTE | 2017-07-15 22:31 | PN ---
DATE: 07/15/2017 LOCATION: 663 Bed A SUBJECTIVE: This 77 years old male seen and examined in round in the presence of his family for GI consultation. Initially on 07/14/2017 as requested by the admitting medical team, reexamined again today, in the presence of his brother. The entire chart is reviewed including, but not limited to the most recent lab and radiology study results, current and the previous medication lists, current and the previous medical events and the patient is still complaining of intermittent periods of postprandial abdominal distention, rectal bleeding on and off. There was a clean dressing on the left healing compression ulcer. The patient also has prior pressure ulcer. The entire chart is reviewed including, but not limited to the most recent lab and radiology study results, current and the previous medication lists, current and the previous medical events. Today's lab showed hemoglobin of 9.6, hematocrit 27.7, with thrombocytopenia of 105 and decreased PT of 17.9 with low CO2 content of 21, detectable metabolic acidosis. Blood glucose level is elevated to 108 and increase CEA level to 4.5, ordered by myself as well as increase CA 19-9 to 62.7. PHYSICAL EXAMINATION: GENERAL: A 77 years old male awake,alert, and oriented with somewhat slurred speech. VITAL SIGNS: Afebrile with pulse of 102, respiratory rate of 20 to 22, and blood pressure of 124/70. HEENT: Showed pale, dry oral mucous membranes with bilateral icteric sclerae. LUNGS: Few scattered crepitation. Decreased air entry at bases. HEART: Positive S1 and S2. ABDOMEN: Soft, bowel sounds are present with mild generalized tenderness and distention with presence of ascites. EXTREMITIES: Without clubbing or cyanosis, but mild lower extremity edematous changes. NEUROLOGIC: No reported new neurological deficits, sensory or motor. LABORATORY DATA: It should be mentioned that the patient's ammonia level is 67, elevated with increased total bilirubin 2.4 with low albumin 2.4. IMPRESSION: 1. Alcoholic liver disease or liver cirrhosis. 2. Abnormal liver function test with total bilirubin elevated and jaundice secondary to above. 3. Evidence of portal hypertension with possible ascites. 4. Anemia secondary to chronic disease. 5. 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 6. Rectal bleeding of unclear etiology. 7. Known history of but not limited to diabetes mellitus, hypertension, hyperlipidemia, as well as benign prostatic hypertrophy. It has to be mentioned that the patient had endoscopic evaluation recently of the GI tract on 03/2017. SUGGESTION: 1. Agree with your plan. 2. Add neomycin p.o. 3. Abdominal ultrasound. 4. The patient may need ultrasound-guided abdominal paracentesis by the invasive radiologist. Further recommendation to follow and review of the recently done endoscopic evaluation to be kept in mind, yet to be done. Case discussed with Dr. Mccabe. Bonita Ramírez MD
--- NOTE | 2017-07-15 23:23 | CP.PCM.PN ---
Subjective - Date & Time of Evaluation Date of Evaluation: 07/15/17 Time of Evaluation: 09:50 - Subjective Subjective: pt seen and examined, less short of breath, decreased abdominal distention Objective - Vital Signs/Intake and Output Vital Signs (last 24 hours): Temp Pulse Resp BP Pulse Ox 97.8 F 109 H 20 121/78 97 07/15/17 16:00 07/15/17 16:00 07/15/17 16:00 07/15/17 16:00 07/15/17 16:00 Intake and Output: 07/15/17 07/16/17 18:59 06:59 Intake Total 950 340 Balance 950 340 - Medications Medications: Current Medications Famotidine (Pepcid) 20 mg PO DAILY [facility] Last Admin: 07/15/17 10:02 Dose: 20 mg Ferrous Sulfate (Feosol) 325 mg PO BID [facility] Last Admin: 07/15/17 18:27 Dose: 325 mg Folic Acid (Folic Acid) 1 mg PO DAILY [facility] Last Admin: 07/15/17 10:02 Dose: 1 mg Furosemide (Lasix) 20 mg PO DAILY [facility] Last Admin: 07/15/17 11:50 Dose: 20 mg Metronidazole (Flagyl) 500 mg in 100 mls @ 100 mls/hr IVPB Q8H [facility] Last Admin: 07/15/17 21:34 Dose: 100 mls/hr Insulin Aspart (Novolog) 0 unit SC ACHS [facility] PRN Reason: Protocol Last Admin: 07/15/17 21:35 Dose: Not Given Lactulose (Enulose) 20 gm PO HS [facility] Last Admin: 07/15/17 21:34 Dose: 20 gm Lisinopril (Zestril) 2.5 mg PO DAILY [facility] Neomycin Sulfate (Neomycin Tab) 500 mg PO Q6 [facility] Last Admin: 07/15/17 18:27 Dose: 500 mg Rosuvastatin Calcium (Crestor) 20 mg PO HS [facility] Last Admin: 07/15/17 21:34 Dose: 20 mg Spironolactone (Aldactone) 25 mg PO BID [facility] Last Admin: 07/15/17 18:26 Dose: 25 mg - Labs Labs: 07/15/17 07:09 07/15/17 07:09 PT 17.9 SECONDS (9.7-12.2) H 07/15/17 13:46 INR 1.5 07/15/17 13:46 APTT 31 SECONDS (21-34) D 07/15/17 13:46 - Constitutional Appears: No Acute Distress, Chronically Ill - Head Exam Head Exam: ATRAUMATIC, NORMAL INSPECTION, NORMOCEPHALIC - Neck Exam Neck Exam: Full ROM, Normal Inspection. absent: Lymphadenopathy - Respiratory Exam Respiratory Exam: Decreased Breath Sounds, Rales - Cardiovascular Exam Cardiovascular Exam: REGULAR RHYTHM, +S1, +S2. absent: Murmur - GI/Abdominal Exam GI & Abdominal Exam: Distended, Normal Bowel Sounds Assessment and Plan (1) Alcoholic cirrhosis of liver with ascites Assessment & Plan: pending abd U/S Status: Acute (2) CHF (congestive heart failure) Status: Acute (3) Confused Status: Acute (4) Dyspnea Status: Acute (5) Fall Status: Acute (6) HTN (hypertension) Status: Acute (7) Dehydration Status: Acute
[2017-07-16] MEDS: metroNIDAZOLE IV 500 mg/100 ml 500 MG/100 ML BAG IVPB SCH ×3 (05:46→22:06)
--- NOTE | 2017-07-16 06:33 | CON ---
DATE: CARDIOLOGY CONSULTATION REASON FOR CONSULTATION: congestive heart failure as well as an abnormal EKG. HISTORY OF PRESENT ILLNESS: The patient is a 77-year-old male who has a history of EtOH abuse, lives by himself, diabetic, hypertensive, who was admitted because of shortness of breath and chest pain. The patient has reported a fall on the day of admission. The patient reported hitting his chest during the fall. The patient did report few falls in the past. The patient denies any fainting. The patient denies any history of seizures. SOCIAL HISTORY: The patient is a smoker. He is a former EtOH abuser. He is , lives by himself. He has children, but he is not in touch with them. MEDICATIONS: Aldactone 25 mg twice a day, Crestor 20 mg once a day, lactulose 20 mg once a day, Feosol 1 tablet twice a day,folic acid 1 mg once a day, Flagyl 500 mg intravenously q.8 hours, Lasix 20 mg p.o. once a day, neomycin 500 mg p.o. q.6 hours, Zestril 2.5 mg daily, and Pepcid 20 mg p.o. daily. REVIEW OF SYSTEMS: No reported hematemesis or melena. No fever or chills. The patient does not report experiencing palpitation. PHYSICAL EXAMINATION: GENERAL: The patient is an elderly male who does not appears to be in acute distress, but appears weak. VITAL SIGNS: Blood pressure 121/78, heart rate 109, temperature 97.8, and respirations 20. HEENT: Pale conjunctivae. NECK: No JVD. CHEST: Diminished air entry over the bases. HEART: S1 and S2, irregular. ABDOMEN: Mild ascites. EXTREMITIES: 1+ pitting edema. LABORATORY DATA: SMA-7, sodium 138, potassium 3.8, chloride 104, CO2 21, glucose 125, BUN 15, and creatinine 0.7. Total bilirubin is 2.4. Carcinoembryonic antigen is elevated 4.5. Hemoglobin and hematocrit 9.6 and 27.7. White count 5.4 and platelet count has reduced at 105,000. INR is 1.5. PT 17.9. EKG is not available in the [place] database, but as far as I can recall from the reviewing it under chart revealed sinus risk with low voltage in the limb and the chest leads. Echocardiography study performed in March of this year revealed normal ejection fraction, diastolic dysfunction, mild to moderate pulmonary hypertension. EKG in March of this year revealed sinus risk with low voltage QRS complex, cannot rule out anterior infarct, and is undetermined. ASSESSMENT: 1. Status post fall. 2. Chest pain, rule out rib fracture. 3. Liver cirrhosis and ascites. 4. Mild thrombocytopenia. 5. Mild anemia. 6. Mild to moderate pulmonary hypertension. RECOMMENDATIONS: Continue Aldactone 25 mg once a day and continue Crestor 20 mg once a day. The liver enzymes are within normal limits so far. Continue IV Flagyl. Continue Lasix 20 mg once a day and Zestril 2.5 mg once a day. Conservative medical approach is recommended. Ryne De Los Santos MD
[2017-07-16] MEDS: (Novolog) Insulin Aspart, Recombinant 100 u/ml 10 ml vial SC SCH ×4 (08:47→21:26)
--- NOTE | 2017-07-16 11:47 | PCM.EEG ---
Electroencephalogram Report - Electroencephalogram Report Procedure Date: 07/14/17 Interpretation: SHORT CLINICAL HISTORY: 77 year old male, whose PMHx includes Anemia, Ascites, Diabetes, and Hypertension, presents to the ED for evaluation of chest pain and shortness of breath which began after he sustained a fall earlier today. Patient states he fell out of his bed while trying to dress himself. MEDICATIONS: Reviewed. INTERPRETATION: This is a 16 channel international recording. The background activity of this tracing was composed of 8-1/2 cycles per second. There was increased amount of beta activity of 16- 20 cycles per second seen in this recording. There was a small amount of theta activity of 5-7 cycles per second seen in this tracing. Drowsiness was characterized by mixed beta and theta activities. Asleep was characterized by vertex transient waves, sleep spindles and bilateral slowing. Photic stimulation showed no change in the tracing. No paroxysmal activity noted in this recording. Impression: This is a normal awake, drowsy EEG. No evidence of any epileptiform activity. Please clinically correlate.
--- NOTE | 2017-07-16 11:55 | RAD ---
PROCEDURE: Chest and bilateral ribs dated 07/16/2017 HISTORY: r/o rib fracture COMPARISON: Comparison made with chest radiograph 07/13/2017 TECHNIQUE: Frontal radiograph of the chest and multiple oblique radiographs of the bilateral ribs were obtained. FINDINGS: RIGHT RIBS: No fracture or focal lesion visualized. LEFT RIBS: No fracture or focal lesion visualized. LUNGS: Mild elevation right hemidiaphragm with what appears represent right basilar atelectasis and or scarring. Minimal left basilar atelectasis. PLEURA: No pneumothorax or pleural fluid. CARDIOVASCULAR: Normal sized heart. No pulmonary vascular congestion. OTHER FINDINGS: Questionable pill artifact overlying the left upper quadrant abdomen IMPRESSION: Elevation right hemidiaphragm with mild right basilar atelectasis and or scarring. Minimal left basilar atelectasis. No definitive evidence of acute displaced rib fracture. If symptoms persist consider followup CT scan of chest
--- NOTE | 2017-07-16 13:19 | PN ---
LOCATION: #3, bed #A. SUBJECTIVE: This 77-year-old male was seen and examined in rounds today without significant clinical changes with intermittent period of complaint of mild abdominal and hip pain on and off, no reported active bleeding. The entire chart is reviewed including, but not limited to the most recent lab and radiology study results, current and previous medication lists, current and previous medical events. Case discussed at length with the staff in the floor. It has to be mentioned that the patient still has mild increase of abdominal girth, indicative of increased ascites. The patient seen by the bank consultant on the case and the case was discussed with all the consultants. Most recent lab result showed blood glucose level of 164 with increased again CEA and CA 19-9. PHYSICAL EXAMINATION: GENERAL: A 77 years old male. VITAL SIGNS: Afebrile with pulse of 92, respiratory rate of 20 to 22, and blood pressure of 122/76. HEENT: Showed dry, mildly pale oral mucous membrane with bilateral icteric sclerae. LUNGS: Few scattered crepitation. Decreased air entry at bases. HEART: Positive S1 and S2 with increased rate. ABDOMEN: Soft with mild distention because of her ascites. No masses or organomegaly. Bowel sounds are hypoactive. EXTREMITIES: Lower extremity edematous changes. No clubbing or cyanosis. NEUROLOGIC: No reported neurological deficits, sensory or motor. The patient has somewhat slurred speech that could be related to his elevated ammonia level and mild hepatic encephalopathy in general. IMPRESSION: 1. Alcoholism with alcoholic liver disease. 2. Abnormal liver function test with secondary to above. 3. Evidence of portal hypertension with ascites. 4. Anemia, most likely secondary to above versus gastrointestinal blood loss, upper versus lower. 5. Coagulopathy due to his liver disease. 6. Reported rectal bleeding of unclear etiology. 7. Pulmonary hypertension by recent history. 8. Known history of, but not limited to hypertension, diabetes mellitus, hyperlipidemia as well as benign prostatic hypertrophy. SUGGESTION: 1. Agree with your plan. 2. Ultrasound-guided abdominal paracentesis by the interventional radiology staff. 3. Repeat ammonia level. 4. Endoscopic evaluation of the GI tract only if there is subsequent drop of hemoglobin and hematocrit, otherwise further evaluation to follow with possible peripheral hyperalimentation. Bonita Ramírez MD
--- NOTE | 2017-07-16 18:59 | US ---
HISTORY: Abdominal distention / assess fluid COMPARISON: Comparison made with prior study 02/05/2016. Comparison also made with CT scan of the abdomen and pelvis. There is 03/31/2017 TECHNIQUE: Sonographic evaluation of the abdomen. FINDINGS: LIVER: Measures approximately 11.4 cm. Nodular contour and increased l echogenicity of the liver parenchyma. . Findings most likely represents cirrhosis PICC with a large amount of ascites. . Clinical correlation recommended. No mass. No intrahepatic bile duct dilatation. GALLBLADDER: Unremarkable. No gallstones. Gallbladder wall slightly thickened possibly due to ascites No sonographic Barajas sign COMMON BILE DUCT: Measures approximately 4.9 mm. No stones. No dilatation. PANCREAS: Not visualized. RIGHT KIDNEY: Measures approximately 10.6 x 4.7 x 4.0cm. Normal echogenicity. No calculus, mass, or hydronephrosis. LEFT KIDNEY: Measures approximately 11.2 x 4.4 x 4.4cm. Normal echogenicity. No calculus or mass. There is mild fullness of the left renal collecting system. ,. There is mild fullness of the. SPLEEN: Normal in size (approximately 10.8 cm in greatest dimension) and contour. No mass or calcifications identified. . AORTA: Grossly unremarkable IVC: Unremarkable. OTHER FINDINGS: None. IMPRESSION: Findings most likely represents reverses with large amount of ascites. . Slight fullness left renal collecting system.
--- NOTE | 2017-07-16 20:08 | CARD ---
APPROVED REPORT EKG Measurement Heart [id number] <Conclusion> Normal sinus rhythm Low voltage QRS Possible V electrodes misplacement. Abnormal ECG PLEASE REPEAT
--- NOTE | 2017-07-16 20:10 | CARD ---
APPROVED REPORT EKG Measurement Heart [id number] <Conclusion> Normal sinus rhythm Low voltage QRS Poor R wave progression Prolonged QT Abnormal ECG
--- NOTE | 2017-07-16 22:22 | CP.PCM.PN ---
Subjective - Date & Time of Evaluation Date of Evaluation: 07/16/17 Time of Evaluation: 21:00 - Subjective Subjective: Pt is seen and examined, less short of breath, has abdominal distention. pt is for neuro eval, cardio eval, pending abdominal Ultrasound Objective - Vital Signs/Intake and Output Vital Signs (last 24 hours): Temp Pulse Resp BP Pulse Ox 97.9 F 98 H 20 122/70 96 07/16/17 15:20 07/16/17 15:38 07/16/17 15:20 07/16/17 15:20 07/16/17 15:20 - Medications Medications: Current Medications Famotidine (Pepcid) 20 mg PO DAILY [facility] Last Admin: 07/16/17 09:26 Dose: 20 mg Ferrous Sulfate (Feosol) 325 mg PO BID [facility] Last Admin: 07/16/17 18:19 Dose: 325 mg Folic Acid (Folic Acid) 1 mg PO DAILY [facility] Last Admin: 07/16/17 09:24 Dose: 1 mg Furosemide (Lasix) 20 mg PO DAILY [facility] Last Admin: 07/16/17 09:24 Dose: 20 mg Metronidazole (Flagyl) 500 mg in 100 mls @ 100 mls/hr IVPB Q8H [facility] Last Admin: 07/16/17 22:06 Dose: 100 mls/hr Insulin Aspart (Novolog) 0 unit SC ACHS [facility] PRN Reason: Protocol Last Admin: 07/16/17 21:26 Dose: Not Given Lactulose (Enulose) 20 gm PO HS [facility] Last Admin: 07/16/17 22:05 Dose: 20 gm Lisinopril (Zestril) 2.5 mg PO DAILY [facility] Last Admin: 07/16/17 10:42 Dose: 2.5 mg Neomycin Sulfate (Neomycin Tab) 500 mg PO Q6 [facility] Last Admin: 07/16/17 18:19 Dose: 500 mg Rosuvastatin Calcium (Crestor) 20 mg PO HS [facility] Last Admin: 07/16/17 22:05 Dose: 20 mg Spironolactone (Aldactone) 25 mg PO BID [facility] Last Admin: 07/16/17 18:19 Dose: 25 mg - Labs Labs: 07/15/17 07:09 07/15/17 07:09 PT 17.9 SECONDS (9.7-12.2) H 07/15/17 13:46 INR 1.5 07/15/17 13:46 APTT 31 SECONDS (21-34) D 07/15/17 13:46 - Constitutional Appears: No Acute Distress - Head Exam Head Exam: ATRAUMATIC, NORMAL INSPECTION, NORMOCEPHALIC - Eye Exam Eye Exam: EOMI, Normal appearance, PERRL Pupil Exam: NORMAL ACCOMODATION, PERRL - ENT Exam ENT Exam: Mucous Membranes Moist, Normal Exam - Neck Exam Neck Exam: Full ROM, Normal Inspection. absent: Lymphadenopathy - Respiratory Exam Respiratory Exam: Clear to Ausculation Bilateral, NORMAL BREATHING PATTERN - Cardiovascular Exam Cardiovascular Exam: REGULAR RHYTHM, +S1, +S2. absent: Murmur - GI/Abdominal Exam GI & Abdominal Exam: Distended, Soft, Normal Bowel Sounds - Rectal Exam Rectal Exam: Deferred Assessment and Plan (1) Alcoholic cirrhosis of liver with ascites Status: Acute (2) CHF (congestive heart failure) Status: Acute (3) Confused Status: Acute (4) Dyspnea Status: Acute (5) Fall Status: Acute (6) HTN (hypertension) Status: Acute (7) Dehydration Status: Acute
[2017-07-17] MEDS: metroNIDAZOLE IV 500 mg/100 ml 500 MG/100 ML BAG IVPB SCH ×3 (05:32→21:39)
[2017-07-17 07:27] LABS: BASO # 0.1 K/uL (0.0-0.2); BASO % 1.2 % (0.0-2.0); EOS # 0.5 K/uL (0.0-0.7); EOS % 7.4 % (0.0-4.0); HEMATOCRIT 28.4 % (35.0-51.0); LYMPH # 1.3 K/uL (1.0-4.3); LYMPH % 19.6 % (20.0-40.0); MEAN CELL VOLUME 100.4 fL (80.0-94.0); MEAN CORPUSCULAR HEMOGLOBIN 35.3 pg (27.0-31.0); MEAN CORPUSCULAR HGB CONC 35.2 g/dL (33.0-37.0); MEAN PLATELET VOLUME 9.2 fL (7.2-11.7); MONO % 14.3 % (0.0-10.0); NRBC % 0.1 % (0.0-2.0); RED CELL DISTRIBUTION WIDTH 15.3 % (11.5-14.5); WHITE BLOOD COUNT 6.6 K/uL (4.8-10.8)
[2017-07-17] MEDS: (Novolog) Insulin Aspart, Recombinant 100 u/ml 10 ml vial SC SCH ×4 (07:30→22:38)
[2017-07-17 07:59] LABS: CHLORIDE 104 mmol/L (98-107); SODIUM 138 mmol/L (132-148)
[2017-07-17 08:02] LABS: ALB/GLOB RATIO 0.6 (1.0-2.1); ALKALINE PHOSPHATASE 127 U/L (38-126); ALT/SGPT 33 U/L (21-72); AST/SGOT 46 U/L (17-59); BILIRUBIN,TOTAL 2.1 mg/dL (0.2-1.3); BLOOD UREA NITROGEN 19 mg/dL (9-20); CALCIUM 8.2 mg/dl (8.6-10.4); CARBON DIOXIDE 21 mmol/L (22-30); GFR AFRICAN-AMERICAN > 60; GLUCOSE,RANDOM 103 mg/dL (75-110); TOTAL PROTEIN 6.3 g/dL (6.3-8.3)
--- NOTE | 2017-07-17 08:25 | PN ---
DATE: LOCATION: #3, bed #A. SUBJECTIVE: This is a 77-year-old male seen and examined in rounds, appears to be somewhat more awake and alert with a complaint of hip pain and mild abdominal pain, but persistent nausea with some dyspepsia. No reported active bleeding and no reported chest pain or palpitation or significant shortness of breath this morning. Most recent lab results showed blood glucose level of 143, with again increased PT 17.9 as well as elevated CEA and CA-19-9. PHYSICAL EXAMINATION GENERAL: A 77-year-old male. VITAL SIGNS: Afebrile, with heart rate 100, respiratory rate 20 to 22, blood pressure 126/72. HEENT: Showed pale, dry mucous membrane, nonicteric sclerae. LUNGS: Few scattered crepitation. Decreased air entry at bases. HEART: Positive S1 and S2 with increased rate. ABDOMEN: Soft with mild distension because of her ascites with mild midepigastric tenderness. No masses or organomegaly. No rebound tenderness or guarding. EXTREMITIES: Lower extremity edematous changes. No clubbing or cyanosis. NEUROLOGIC: No reported neurological deficits, sensory or motor. Peripheral pulses are present bilaterally, but decreased. IMPRESSION: 1. Alcoholic liver disease. 2. Liver cirrhosis with portal hypertension with refractory ascites. 3. Known history of diverticulosis. 4. Coagulopathy, most likely secondary to above. 5. Reported rectal bleeding of unclear etiology secondary to diverticulosis bleeding and internal hemorrhoids. 6. Known history of pulmonary hypertension. 7. History of, but not limited to diabetes mellitus, hypertension, and hyperlipidemia with benign prostatic hypertrophy. 8. Elements of mild hepatic encephalopathy with increased ammonia level. SUGGESTIONS: 1. Agree with your plan. 2. Zofran IV p.r.n. or/and Reglan IV. 3. Repeat ammonia level. 4. Further recommendation to follow and if there is subsequent drop of hemoglobin and hematocrit, then endoscopic evaluation of the GI tract to be kept in mind, otherwise, ultrasound-guided abdominal paracentesis to be performed by the [facility] staff. Bonita Ramírez MD
--- NOTE | 2017-07-17 16:40 | PN ---
DATE: SUBJECTIVE: The patient denies any dizziness. No reported ventricular arrhythmia on the monitor. PHYSICAL EXAMINATION VITAL SIGNS: Blood pressure 122/71, heart rate 96, temperature 98.1, respirations 20. HEENT: Pale conjunctivae. HEART: Sounds regular. CHEST: Clear. ABDOMEN: Moderate ascites. EXTREMITIES: 1+ pitting edema. LABORATORY DATA: Hemoglobin and hematocrit 10 and 28.4 respectively, white count 6.6, platelet count are within normal at 106. SMA-7 is within normal limit except for carbon dioxide of 21, total bilirubin is slightly elevated at 2.1, calcium is below normal at 8.2. Yesterday's abdominal ultrasound revealed large ascites. Slight fullness of left renal collecting system. Rib x-ray, no definite evidence of acute displaced rib fracture. ASSESSMENT: 1. Status post fall. 2. Atypical chest pain, myocardial infarction is ruled out. 3. Liver cirrhosis. 4. Thrombocytopenia. 5. Coagulopathy. 6. Mild anemia. 7. Alcohol abuse. CONDITIONS: Continue Aldactone 25 mg twice a day, Crestor 20 mg once a day, ferrous sulfate 325 mg twice a day, Lasix 20 mg once a day, folic acid 1 mg daily, Zestril 2.5 mg daily. Ryne De Los Santos MD
--- NOTE | 2017-07-17 22:27 | CP.PCM.PN ---
Subjective - Date & Time of Evaluation Date of Evaluation: 07/17/17 Time of Evaluation: 15:00 - Subjective Subjective: Pt seen & evakauted, is for paracebtesisi on minday, family requested for BRYCE Objective - Vital Signs/Intake and Output Vital Signs (last 24 hours): Temp Pulse Resp BP Pulse Ox 97.9 F 109 H 20 103/66 96 07/17/17 15:59 07/17/17 15:59 07/17/17 15:59 07/17/17 17:46 07/17/17 15:59 - Medications Medications: Current Medications Famotidine (Pepcid) 20 mg PO DAILY [facility] Last Admin: 07/17/17 13:59 Dose: 20 mg Ferrous Sulfate (Feosol) 325 mg PO BID [facility] Last Admin: 07/17/17 17:46 Dose: 325 mg Folic Acid (Folic Acid) 1 mg PO DAILY [facility] Last Admin: 07/17/17 13:43 Dose: 1 mg Furosemide (Lasix) 20 mg PO DAILY [facility] Last Admin: 07/17/17 13:47 Dose: 20 mg Metronidazole (Flagyl) 500 mg in 100 mls @ 100 mls/hr IVPB Q8H [facility] Last Admin: 07/17/17 21:39 Dose: 100 mls/hr Insulin Aspart (Novolog) 0 unit SC ACHS [facility] PRN Reason: Protocol Last Admin: 07/17/17 17:35 Dose: 1 unit Lactulose (Enulose) 20 gm PO HS [facility] Last Admin: 07/16/17 22:05 Dose: 20 gm Lisinopril (Zestril) 2.5 mg PO DAILY [facility] Last Admin: 07/17/17 13:43 Dose: 2.5 mg Metoclopramide HCl (Reglan) 5 mg IVP Q6 [facility] Last Admin: 07/17/17 17:47 Dose: 5 mg Neomycin Sulfate (Neomycin Tab) 500 mg PO Q6 [facility] Last Admin: 07/17/17 17:47 Dose: 500 mg Rosuvastatin Calcium (Crestor) 20 mg PO HS [facility] Last Admin: 07/16/17 22:05 Dose: 20 mg Spironolactone (Aldactone) 25 mg PO BID [facility] Last Admin: 07/17/17 13:42 Dose: 25 mg - Labs Labs: 07/17/17 07:06 07/17/17 07:06 PT 17.9 SECONDS (9.7-12.2) H 07/15/17 13:46 INR 1.5 07/15/17 13:46 APTT 31 SECONDS (21-34) D 07/15/17 13:46 - Constitutional Appears: No Acute Distress - Eye Exam Eye Exam: EOMI, Normal appearance, PERRL Pupil Exam: NORMAL ACCOMODATION, PERRL - Respiratory Exam Respiratory Exam: Decreased Breath Sounds, Rales - Cardiovascular Exam Cardiovascular Exam: REGULAR RHYTHM, +S1, +S2. absent: Murmur - GI/Abdominal Exam GI & Abdominal Exam: Distended Additional comments: positive shifting dullness Assessment and Plan (1) Alcoholic cirrhosis of liver with ascites Status: Acute (2) CHF (congestive heart failure) Status: Acute (3) Confused Status: Acute (4) Dyspnea Status: Acute (5) Fall Status: Acute (6) HTN (hypertension) Status: Acute (7) Dehydration Status: Acute
[2017-07-18] MEDS: metroNIDAZOLE IV 500 mg/100 ml 500 MG/100 ML BAG IVPB SCH (05:17)
[2017-07-18] MEDS: (Novolog) Insulin Aspart, Recombinant 100 u/ml 10 ml vial SC SCH ×4 (08:50→22:00)
--- NOTE | 2017-07-18 12:33 | PN ---
LOCATION: [facility], bed B. SUBJECTIVE: This 77-year-old male was seen and examined early on rounds today, in significant clinical changes, but with a complaint of bilateral hip pain with clean dressing covering his hips. The patient is still complaining of mild abdominal distention with period of nausea, but no reported vomiting. The entire chart is reviewed including, but not limited to the most recent lab and radiology study results, current and the previous medication lists, current and the previous medical events. Today's lab showed blood glucose level of 106 and ammonia level reported yesterday to be low to 15. PHYSICAL EXAMINATION: GENERAL: A 77 years old male, awake, alert, oriented with occasional slurred speech. VITAL SIGNS: Afebrile with pulse of 90, respiratory rate of 20 to 22, and blood pressure of 108/64. HEENT: Showed pale, dry oral mucous membranes. Nonicteric sclerae. LUNGS: Few scattered crepitation. Decreased air entry at bases. HEART: Positive S1 and S2. ABDOMEN: Soft with mild distention. Positive for ascites with generalized tenderness. No mass or organomegaly could be appreciated. NEUROLOGIC: No reported new neurological deficits, sensory or motor and no focal deficits. VASCULAR: Peripheral pulses are present, but weak bilaterally. IMPRESSION: 1. Alcoholic liver disease with evidence of liver cirrhosis. 2. Portal hypertension with refractory ascites. 3. Coagulopathy secondary to above. 4. Known history of diverticulosis, diagnosed also by radiology study results report. 5. Anemia secondary to above with bleeding diverticula with internal hemorrhoids and/or blood loss from possible varices. 6. Known history of pulmonary hypertension. 7. Past medical history including, but not limited to hypertension, diabetes mellitus, benign prostatic hypertrophy with hyperlipidemia. 8. Hepatic encephalopathy with increased ammonia level before, well controlled. SUGGESTION: 1. Continue current management. 2. Awaiting abdominal ultrasound-guided paracentesis. 3. Endoscopic evaluation of the GI tract when the patient is more stable clinically and if there is further drop of hemoglobin and hematocrit. 4. Correct any underlying coagulopathy as well as thrombocytopenia. Bonita Ramírez MD
--- NOTE | 2017-07-18 14:45 | PN ---
SUBJECTIVE: The patient denies any dizziness or palpitation. No chest pain. PHYSICAL EXAMINATION: VITAL SIGNS: Blood pressure 105/68, heart rate 93, temperature 98.2, respirations 20. HEENT: Pale conjunctivae. NECK: No JVD. CHEST: Diminished air entry over the bases. HEART: S1 and S2 regular. ABDOMEN: Moderate ascites. EXTREMITIES: 1 plus pitting edema. LABORATORY DATA: Today's blood sugars are 106 and 169 respectively. ASSESSMENT: 1. Status post a fall. 2. Atypical chest pain, myocardial infarction is ruled out. 3. Alcoholic liver cirrhosis. 4. Portal hypertension. 5. Mild anemia. 6. Mild coagulopathy. RECOMMENDATIONS: Continue Aldactone 25 mg twice a day, Crestor 20 mg once a day, Feosol take 1 tablet twice a day, Flagyl 500 mg p.o. q. 8 hours, Lasix 20 mg p.o. daily, Zestril 2.5 mg daily, Inderal for portal hypertension will not be justified as the patient is borderline hypotensive. Ryne De Los Santos MD
--- NOTE | 2017-07-18 23:16 | CP.PCM.PN ---
Subjective - Date & Time of Evaluation Date of Evaluation: 07/18/17 Time of Evaluation: 10:00 - Subjective Subjective: PT SEEN & EXAMINED AT BEDSIDE Objective - Vital Signs/Intake and Output Vital Signs (last 24 hours): Temp Pulse Resp BP Pulse Ox 98 F 99 H 20 107/67 94 L 07/18/17 15:54 07/18/17 15:54 07/18/17 15:54 07/18/17 15:54 07/18/17 15:54 Intake and Output: 07/18/17 07/19/17 18:59 06:59 Intake Total 600 Balance 600 - Medications Medications: Current Medications Famotidine (Pepcid) 20 mg PO DAILY [facility] Last Admin: 07/18/17 09:39 Dose: 20 mg Ferrous Sulfate (Feosol) 325 mg PO BID [facility] Last Admin: 07/18/17 17:38 Dose: 325 mg Folic Acid (Folic Acid) 1 mg PO DAILY [facility] Last Admin: 07/18/17 09:39 Dose: 1 mg Furosemide (Lasix) 20 mg PO DAILY [facility] Last Admin: 07/18/17 09:39 Dose: 20 mg Insulin Aspart (Novolog) 0 unit SC [facility] PRN Reason: Protocol Last Admin: 07/18/17 17:32 Dose: Not Given Lactulose (Enulose) 20 gm PO HS [facility] Last Admin: 07/18/17 21:29 Dose: Not Given Lisinopril (Zestril) 2.5 mg PO DAILY [facility] Last Admin: 07/18/17 09:39 Dose: 2.5 mg Metoclopramide HCl (Reglan) 5 mg IVP Q6 [facility] Last Admin: 07/18/17 17:37 Dose: 5 mg Metronidazole (Flagyl) 500 mg PO Q8 [facility] Last Admin: 07/18/17 21:27 Dose: 500 mg Neomycin Sulfate (Neomycin Tab) 500 mg PO Q6 [facility] Last Admin: 07/18/17 17:38 Dose: 500 mg Rosuvastatin Calcium (Crestor) 20 mg PO HS [facility] Last Admin: 07/18/17 21:27 Dose: 20 mg Spironolactone (Aldactone) 25 mg PO BID [facility] Last Admin: 07/18/17 17:38 Dose: 25 mg - Labs Labs: 07/17/17 07:06 07/17/17 07:06 PT 17.9 SECONDS (9.7-12.2) H 07/15/17 13:46 INR 1.5 07/15/17 13:46 APTT 31 SECONDS (21-34) D 07/15/17 13:46 Assessment and Plan (1) Alcoholic cirrhosis of liver with ascites Status: Acute (2) CHF (congestive heart failure) Status: Acute (3) Confused Status: Acute (4) Dyspnea Status: Acute (5) Fall Status: Acute (6) HTN (hypertension) Status: Acute (7) Dehydration Status: Acute
[2017-07-19 07:16] LABS: ALB/GLOB RATIO 0.6 (1.0-2.1); ALKALINE PHOSPHATASE 138 U/L (38-126); ALT/SGPT 57 U/L (21-72); AST/SGOT 85 U/L (17-59); BILIRUBIN,TOTAL 2.1 mg/dL (0.2-1.3); BLOOD UREA NITROGEN 25 mg/dL (9-20); CALCIUM 8.4 mg/dl (8.6-10.4); CARBON DIOXIDE 20 mmol/L (22-30); CHLORIDE 102 mmol/L (98-107); GFR AFRICAN-AMERICAN > 60; GLUCOSE,RANDOM 112 mg/dL (75-110); POTASSIUM 4.3 mmol/L (3.6-5.2); SODIUM 132 mmol/L (132-148)
[2017-07-19 07:33] LABS: BASO # 0.1 K/uL (0.0-0.2); EOS # 0.3 K/uL (0.0-0.7); EOS % 3.9 % (0.0-4.0); HEMATOCRIT 26.5 % (35.0-51.0); LYMPH % 11.6 % (20.0-40.0); MEAN CELL VOLUME 101.1 fL (80.0-94.0); MEAN CORPUSCULAR HEMOGLOBIN 35.5 pg (27.0-31.0); MEAN CORPUSCULAR HGB CONC 35.1 g/dL (33.0-37.0); MEAN PLATELET VOLUME 9.6 fL (7.2-11.7); MONO # 1.2 K/uL (0.0-0.8); MONO % 13.5 % (0.0-10.0); RED CELL DISTRIBUTION WIDTH 15.5 % (11.5-14.5); WHITE BLOOD COUNT 8.8 K/uL (4.8-10.8)
[2017-07-19] MEDS: (Novolog) Insulin Aspart, Recombinant 100 u/ml 10 ml vial SC SCH ×4 (08:04→23:05)
--- NOTE | 2017-07-19 11:23 | CON ---
DATE: 07/14/[address] Ramírez and Dr. Santhosh Mccabe: I was called for the GI consultation by the admitting MD. The patient is seen and fully examined on 07/14/2017, as requested by the admitting medical staff. The entire chart is reviewed including, but not limited to the most recent labs and radiology study results, current and previous medication list, current and previous medical events, allergies to medication list as well as all the available current and previous medical records. Case discussed with staff at length on 07/14/2017 post my GI consultation. HISTORY OF PRESENT ILLNESS: This [id number] male who has multiple past medical history, was admitted to hospital through the emergency room with a main complaint of shortness of breath, some chest discomfort after a fall, with increased abdominal girth, generalized weakness, and malaise with loss of appetite as well as lower extremity edematous changes. All took place about 2 to 2-1/2 weeks prior to his admission. PAST MEDICAL HISTORY: Including, but not limited to benign prostatic hypertrophy, alcoholic liver disease, hypertension, diabetes mellitus, hyperlipidemia, as well as peptic ulcer disease and severe anxiety syndrome. The patient denied any active bleeding, fever, or chills. It has to be mentioned that as per the record appearance, the patient had recent upper and lower endoscopy, reports are not available at this time. SOCIAL HISTORY: Positive for alcohol abuse, negative for cigarette smoking. FAMILY HISTORY: Unknown. ALLERGIES: ALLERGIC TO MEDICATION UNCLEAR. CURRENT MEDICATIONS: Medications list were reviewed. LABORATORY DATA: After being admitted to the hospital, the patient was found to have low hemoglobin of 10.4, hematocrit 30.5 with low platelets of 91, and low white blood cells 4.4 indicative of pancytopenia with low CO2 content indicative of metabolic acidosis as well as low creatinine. PHYSICAL EXAMINATION: GENERAL: A [id number] male with very slight slurred speech. VITAL SIGNS: Afebrile with pulse of 92, respiratory rate of 20 to 24, and blood pressure of 128/80. HEENT: Showed pale, dry oral mucoid membranes. Slight icteric sclerae. LYMPH NODES: No lymphadenitis or lymphadenopathy. LUNGS: Scattered crepitations with decreased air entry bilaterally. HEART: Positive S1 and S2 with increased rate. ABDOMEN: Soft but with moderate amount of ascites, positive for distention with generalized tenderness. No appreciated mass or organomegaly. No rebound tenderness or guarding. RECTAL: The patient refused. EXTREMITIES: Lower extremity edematous changes. No clubbing or cyanosis. NEUROLOGIC: No neurological deficits, sensory or motor. Slight upper extremity fine tremors reported occasionally, especially in both hands. IMPRESSION: 1. Alcoholic liver disease with liver cirrhosis. 2. Evidence of portal hypertension. 3. Ascites secondary to above. 4. Pancytopenia, most likely secondary to above. 5. Trouble with recurrent gastrointestinal blood loss, upper versus lower with anemia and thrombocytopenia. 6. Early stage of possible hepatic encephalopathy with probable increase of ammonia level. 7. Remarkable past medical history including, but not limited to hypertension, hyperlipidemia, diabetes mellitus with benign prostatic hypertrophy, severe anxiety syndrome with peptic ulcer disease. SUGGESTIONS: 1. Agree with your plan. 2. Correct any underlying electrolyte imbalance and coagulopathy which is secondary to his liver disease. 3. Ultrasound-guided abdominal paracentesis. 4. Guaiac of the stool x3. 5. Cancer markers including CEA, PSA, as well as CA 19-9. 6. Add neomycin p.o. 7. Increase dose of Aldactone in the meantime. Further recommendation to follow and if there is significant drop of hemoglobin and hematocrit, then blood transfusion with repeat upper endoscopy to be kept in mind. Thank you for letting me participate in your patient's care and management. Bonita Ramírez MD cc: Bonita Ramírez MD
--- NOTE | 2017-07-19 11:56 | PN ---
DATE: LOCATION: [facility], bed B. SUBJECTIVE: This is a 77-year-old male, seen and examined in rounds without significant clinical changes or reported active bleeding. He was complaining again of intermittent pain of both hips area as well as mild abdominal pain and distention with less oral intake. No reported chest pain or evidence of active bleeding or significant shortness of breath. The entire chart is reviewed including but not limited to the most recent lab and radiology study results, current and the previous medication lists, current and the previous medical events. Case discussed with the staff at length. PHYSICAL EXAMINATION GENERAL: A 77 years old male. VITAL SIGNS: Afebrile, pulse of 96, respiratory rate of 20 to 22, and blood pressure of 112/68. HEENT: Showed pale, dry oral mucous membranes. Bilateral icteric sclerae. LUNGS: Few scattered crepitation. Decreased air entry at bases. HEART: Positive S1 and S2. ABDOMEN: Soft. Bowel sounds are present with mild distention. Positive for ascites. No mass or organomegaly. No rebound tenderness or guarding. RECTAL: The patient refused. EXTREMITIES: Without significant clubbing, cyanosis or edema. NEUROLOGIC: No reported new neurological deficits, sensory or motor. LABORATORY DATA: It has to be mentioned that today's lab showed hemoglobin of 9.3, hematocrit 26.7 with subsequent drop through his hospitalization with thrombocytopenia of 121 with increased PT to 22.9. Increased BUN of 25, normal creatinine, blood glucose level 121, low calcium of 8.4, increased total bilirubin to 2.1 with AST 85, elevated but normal ALT, with albumin 2.3, and low total protein of 6.0. IMPRESSION: 1. Alcoholism with alcoholic liver disease. 2. Evidence of portal hypertension with refractory ascites. 3. Anemia, rule out gastrointestinal blood loss with possible esophageal varices inducing blood loss. 4. Coagulopathy secondary to above. 5. Reported history of diverticulosis by radiology study results. 6. Known history of pulmonary hypertension. 7. Past medical history of but not limited to diabetes mellitus, hypertension, hyperlipidemia, with benign prostatic hypertrophy. 8. Slight hepatic encephalopathy, improving. The patient is awake, alert and oriented. No reported new slurred speech and ammonia levels have been within normal limit. SUGGESTION: 1. Continue current management. 2. Guaiac of the stool daily x3. 3. Upper endoscopy at a.m. 4. Vitamin K to correct the patient's underlying coagulopathy. Bonita Ramírez MD cc: Office The patient's chart
--- NOTE | 2017-07-19 13:12 | CARD ---
APPROVED REPORT EKG Measurement Heart [id number] [place] [id number] <Conclusion> Normal sinus rhythm Low voltage QRS Possible Anterolateral infarct, age undetermined Abnormal ECG
--- NOTE | 2017-07-19 13:12 | CARD ---
APPROVED REPORT EKG Measurement Heart [id number] <Conclusion> Normal sinus rhythm Low voltage QRS Inferior infarct, age undetermined Abnormal ECG
--- NOTE | 2017-07-19 13:29 | PCM.SURG1 ---
Surgeon's Initial Post Op Note - Surgeon's Notes Surgeon: Estiven Borjas MD [employer] Clerk: None Type of Anesthesia: Local Pre-Operative Diagnosis: Ascites Operative Findings: US showed a large amount of ascites Post-Operative Diagnosis: Ascites Operation Performed: US guided paracentesis. Specimen/Specimens Removed: 6 liters of yellow colored Estimated Blood Loss: EBL {In ML}: 0 Blood Products Given: N/A Drains Used: No Drains Post-Op Condition: Fair Date of Surgery/Procedure: 07/19/17 Time of Surgery/Procedure: 12:00
--- NOTE | 2017-07-19 13:36 | US ---
Date of Procedure: 07/19/2017 PROCEDURE: Ultrasound-guided paracentesis, CPT 88734 Medications: 7 cc 1% Lidocaine HISTORY: Ascites, abdominal pain, cirrhosis TECHNIQUE: Following informed consent , the patient was placed supine on the stretcher and the site was marked. A limited abdominal ultrasound was performed that showed a large amount of intra-abdominal fluid. Procedural time out was called and the Pt's abdomen was marked and prepped and draped in the usual sterile fashion. Ultrasound-guided large volume paracentesis performed. A total of 6 liters of straw colored fluid was removed without complication. IMPRESSION: Ultrasound-guided large volume paracentesis.
--- NOTE | 2017-07-19 18:37 | PN ---
SUBJECTIVE: The patient was borderline hypotensive today. Diuretics were held. He denies any dizziness. PHYSICAL EXAMINATION VITAL SIGNS: Blood pressure 101/54, heart rate 101, temperature 98.7, and respirations 20. HEENT: Pale conjunctiva. CHEST: Diminished breath sounds over the bases. HEART: S1 and S2 regular. ABDOMEN: Moderate ascites. EXTREMITIES: 1+ pitting edema. LABORATORY DATA: Today's hemoglobin and hematocrit 9.8 and 26.5, white count 8.8, and platelet count 121,000. SMA-7 showed sodium 132, potassium 4.2, chloride 102, CO2 of 20, glucose 112, BUN 25, and creatinine 0.8. ASSESSMENT: 1. Liver cirrhosis. 2. Portal hypertension. 3. Coagulopathy. The patient's INR today is 2.0. 4. Mild thrombocytopenia. 5. Mild anemia. CONDITIONS: Continue Aldactone 25 mg twice a day, hold for systolic blood pressure below 110. Continue oral Flagyl 500 mg p.o. q. 8 hours. Continue Lasix 20 mg once a day, hold for systolic blood pressure below 110. Continue oral neomycin at 500 mg q. 6 hours. Continue Zestril 2.5 mg daily, hold for systolic blood pressure below 110. Ryne De Los Santos MD
--- NOTE | 2017-07-19 22:47 | CP.PCM.PN ---
Subjective - Date & Time of Evaluation Date of Evaluation: 07/19/17 Time of Evaluation: 22:00 - Subjective Subjective: pt seen & evaluated at bedside, s/p US guided paracentesis. and 6 liters of yellow colored fluid removed, pt is feeling better Objective - Vital Signs/Intake and Output Vital Signs (last 24 hours): Temp Pulse Resp BP Pulse Ox 98.1 F 96 H 20 92/47 L 96 07/19/17 15:15 07/19/17 15:15 07/19/17 15:15 07/19/17 15:15 07/19/17 15:15 Intake and Output: 07/19/17 07/20/17 18:59 06:59 Intake Total 400 Balance 400 - Medications Medications: Current Medications Famotidine (Pepcid) 20 mg PO DAILY [facility] Last Admin: 07/19/17 10:07 Dose: 20 mg Ferrous Sulfate (Feosol) 325 mg PO BID [facility] Last Admin: 07/19/17 18:28 Dose: 325 mg Folic Acid (Folic Acid) 1 mg PO DAILY [facility] Last Admin: 07/19/17 10:07 Dose: 1 mg Furosemide (Lasix) 20 mg PO DAILY [facility] Last Admin: 07/19/17 10:08 Dose: Not Given Insulin Aspart (Novolog) 0 unit SC [facility] PRN Reason: Protocol Last Admin: 07/19/17 18:29 Dose: 1 unit Lactulose (Enulose) 20 gm PO HS [facility] Last Admin: 07/18/17 21:29 Dose: Not Given Lisinopril (Zestril) 2.5 mg PO DAILY [facility] Last Admin: 07/19/17 10:08 Dose: Not Given Metoclopramide HCl (Reglan) 5 mg IVP Q6 [facility] Last Admin: 07/19/17 18:27 Dose: 5 mg Metronidazole (Flagyl) 500 mg PO Q8 [facility] Last Admin: 07/19/17 14:40 Dose: 500 mg Neomycin Sulfate (Neomycin Tab) 500 mg PO Q6 [facility] Last Admin: 07/19/17 18:28 Dose: 500 mg Phytonadione (Vitamin K Inj) 10 mg SC ONCE ONE Stop: 07/20/17 06:01 Rosuvastatin Calcium (Crestor) 20 mg PO HS [facility] Last Admin: 07/18/17 21:27 Dose: 20 mg Spironolactone (Aldactone) 25 mg PO BID [facility] Last Admin: 07/19/17 10:07 Dose: Not Given - Labs Labs: 07/19/17 06:53 07/19/17 06:53 PT 22.9 SECONDS (9.7-12.2) H 07/19/17 06:53 INR 2.0 07/19/17 06:53 APTT 31 SECONDS (21-34) D 07/15/17 13:46 - Constitutional Appears: No Acute Distress - Head Exam Head Exam: ATRAUMATIC, NORMAL INSPECTION, NORMOCEPHALIC - Eye Exam Eye Exam: EOMI, Normal appearance, PERRL Pupil Exam: NORMAL ACCOMODATION, PERRL - Respiratory Exam Respiratory Exam: Decreased Breath Sounds, Rales, Rhonchi - Cardiovascular Exam Cardiovascular Exam: REGULAR RHYTHM, +S1, +S2. absent: Murmur - GI/Abdominal Exam GI & Abdominal Exam: Soft, Normal Bowel Sounds. absent: Tenderness Assessment and Plan (1) Alcoholic cirrhosis of liver with ascites Status: Acute (2) CHF (congestive heart failure) Status: Acute (3) Confused Status: Acute (4) Dyspnea Status: Acute (5) Fall Status: Acute (6) HTN (hypertension) Status: Acute (7) Dehydration Status: Acute
[2017-07-20] MEDS ORDERED: Phytonadione 10 mg/ml Inj (Adult) SC ONE (06:00)
[2017-07-20] MEDS: (Novolog) Insulin Aspart, Recombinant 100 u/ml 10 ml vial SC SCH ×2 (07:42→13:38)
[2017-07-20] MEDS ORDERED: Phytonadione 10 mg/ml Inj (Adult) SC STA (11:12)
[2017-07-20] MEDS ORDERED: Propofol 10 mg/ml Inj (20 ML) ONE (11:59)
[2017-07-20] MEDS ORDERED: Lidocaine Hydrochloride 5 ML INJ ONE (12:20)
[2017-07-20 13:33] VITALS: TEMP 97.9
--- NOTE | 2017-07-20 14:20 | PN ---
SUBJECTIVE: The patient underwent endoscopy and the findings are consistent with grade II varices with no bleeding was found in the lower third of the esophagus. No stigmata of recent bleeding. The varices had noted marco a sign. A medium size hiatal hernia was present. inflammation characterized by congestion, edema, erosion and erythema were found in the gastric antrum. Diffuse, moderately erythematous mucosa without bleeding was found in the entire exam of the stomach. Examination of the duodenum was normal. ASSESSMENT: 1. Status post fall. 2. Atypical chest pain, myocardial infarction is ruled out. 3. 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 4. Alcoholic liver disease. 5. Anemia and improving thrombocytopenia. 6. Hypertension. RECOMMENDATIONS: Continue Aldactone 25 mg twice a day, Carafate 1 g twice a day, Enulose 20 mg at bedtime, Feosol one tablet twice a day, oral Flagyl 500 mg q. 8 hours, folic acid 1 mg once a day, Lasix 20 mg once a day, neomycin 500 mg orally q. 6 hours and Zestril 2.5 mg once a day. Ryne De Los Santos MD
--- NOTE | 2017-07-20 15:17 | CP.PCM.PN ---
Subjective - Date & Time of Evaluation Date of Evaluation: 07/20/17 Time of Evaluation: 13:00 - Subjective Subjective: Pt seen today, denies any chest pain, sob, abdominal pain, N/V/D , s/p - EGD- Grade II varices with no bleeding ( see full report for details ) Hgb stable -10.4--9.6--10--9.3 Objective - Vital Signs/Intake and Output Vital Signs (last 24 hours): Temp Pulse Resp BP Pulse Ox 97.9 F 103 H 20 104/60 96 07/20/17 13:32 07/20/17 13:32 07/20/17 13:32 07/20/17 13:37 07/20/17 13:32 Intake and Output: 07/20/17 07/20/17 06:59 18:59 Intake Total 120 250 Balance 120 250 - Medications Medications: Current Medications Famotidine (Pepcid) 20 mg PO DAILY [facility] Last Admin: 07/20/17 13:39 Dose: 20 mg Ferrous Sulfate (Feosol) 325 mg PO BID [facility] Last Admin: 07/20/17 12:08 Dose: Not Given Folic Acid (Folic Acid) 1 mg PO DAILY [facility] Last Admin: 07/20/17 13:39 Dose: 1 mg Furosemide (Lasix) 20 mg PO DAILY [facility] Last Admin: 07/20/17 13:37 Dose: Not Given Insulin Aspart (Novolog) 0 unit SC ACHS [facility] PRN Reason: Protocol Last Admin: 07/20/17 13:38 Dose: Not Given Lactulose (Enulose) 20 gm PO HS [facility] Last Admin: 07/19/17 23:11 Dose: Not Given Lisinopril (Zestril) 2.5 mg PO DAILY [facility] Last Admin: 07/20/17 13:38 Dose: Not Given Metoclopramide HCl (Reglan) 5 mg IVP Q6 [facility] Last Admin: 07/20/17 12:09 Dose: Not Given Metronidazole (Flagyl) 500 mg PO Q8 [facility] Last Admin: 07/20/17 13:39 Dose: 500 mg Neomycin Sulfate (Neomycin Tab) 500 mg PO Q6 [facility] Last Admin: 07/20/17 13:38 Dose: 500 mg Rosuvastatin Calcium (Crestor) 20 mg PO HS [facility] Last Admin: 07/19/17 23:04 Dose: 20 mg Spironolactone (Aldactone) 25 mg PO BID [facility] Last Admin: 07/20/17 12:08 Dose: Not Given Sucralfate (Carafate Oral Susp) 1 gm PO ACBHS [facility] - Labs Labs: 07/19/17 06:53 07/19/17 06:53 PT 22.9 SECONDS (9.7-12.2) H 07/19/17 06:53 INR 2.0 07/19/17 06:53 APTT 31 SECONDS (21-34) D 07/15/17 13:46 - Constitutional Appears: Well, No Acute Distress - ENT Exam ENT Exam: Mucous Membranes Moist - Respiratory Exam Respiratory Exam: Clear to Ausculation Bilateral, NORMAL BREATHING PATTERN - Cardiovascular Exam Cardiovascular Exam: Tachycardia, REGULAR RHYTHM, +S1, +S2 - GI/Abdominal Exam GI & Abdominal Exam: Distended, Soft - Neurological Exam Neurological Exam: Alert, Awake, Oriented x3 Assessment and Plan - Assessment and Plan (Free Text) Assessment: A/P 77 yr old male admitted for syncope/ s/p fall/ CHF s/p paracentesis yesterday s/p EGD today - ( see full report for details) hgb stable Patient accepted at [facility] for rehab DW Dr Mccabe, stable for discharge to [facility] and Dr. Mccabe will follow the patient at [facility] Discharge plan discussed with patient
--- NOTE | 2017-07-20 15:43 | PN ---
LOCATION: #669, bed B. SUBJECTIVE: This 77-year-old male was seen and examined on rounds, without significant clinical changes, but reported generalized mild weakness and malaise, status post ultrasound-guided abdominal paracentesis with removable of about 6 L after which the patient improved. Has less abdominal distension with more appetite. The entire chart is reviewed including, but not limited to the most recent lab and radiology study results, current and previous medication list, current and previous medical events with the latest hemoglobin of 9.3, hematocrit 26.5 with thrombocytopenia of 121, with increased PT to 22.9 and INR of 2.0. Blood glucose level today of 102. Case discussed at length with the staff on the floor. PHYSICAL EXAMINATION: GENERAL: A 77-year-old male. VITAL SIGNS: Afebrile with pulse of 100, respiratory rate 20-22, and blood pressure 118/66. HEENT: Showed pale, dry mucoid membrane. Mild bilateral icteric sclerae. LUNGS: Few scattered mild crepitation with decreased air entry at bases. HEART: Positive S1 and S2 with increased rate. ABDOMEN: Soft, bowel sounds are present with very small amount of ascitic fluid post abdominal paracentesis. No mass or organomegaly. EXTREMITIES: Mild lower extremity edematous changes. No clubbing or cyanosis. NEUROLOGIC: No reported new neurological deficits, sensory or motor. It has to be mentioned that repeat ammonia level is still pending today. IMPRESSION: 1. Alcoholic liver disease. 2. Liver cirrhosis with evidence of portal hypertension and ascites. 3. Anemia, to rule out recent history of gastrointestinal blood loss, upper versus lower, including possible esophageal varices. 4. Coagulopathy secondary to above. 5. Known history of, but not limited to pulmonary hypertension, diabetes mellitus, hyperlipidemia. 6. History of benign prostatic hypertrophy with hypertension. 7. Diverticulosis, by radiology study results. 8. Slight hepatic encephalopathy, improving as the patient appears to be more awake, alert, oriented. SUGGESTION: 1. Continue current management. 2. Endoscopic evaluation of the GI tract when the patient is more stable clinically post abdominal paracentesis. 3. Vitamin K subQ. 4. Further recommendation to follow and repeat ammonia level is to be ordered. Bonita Ramírez MD [facility] # [id number]
[2017-07-20 17:56] VITALS: BP 99/62; PULSE 101; RESP 18; O2SAT 95
[2017-07-20] MEDS ORDERED: Sucralfate 1 gm/10 ml Oral Susp UD PO SCH (22:00)
[2017-07-21] MEDS ORDERED: Phytonadione 10 mg/ml Inj (Adult) SC ONE (06:00)
--- NOTE | 2017-07-23 00:22 | CP.PCM.DIS ---
Provider - Provider Date of Admission: 07/14/17 19:56 Attending physician: Santhosh Mccabe MD Time Spent in preparation of Discharge (in minutes): 45 Diagnosis - Discharge Diagnosis (1) Alcoholic cirrhosis of liver with ascites Status: Acute (2) CHF (congestive heart failure) Status: Acute (3) Confused Status: Acute (4) Dyspnea Status: Acute (5) Fall Status: Acute (6) HTN (hypertension) Status: Acute (7) Dehydration Status: Acute Hospital Course - Lab Results Lab Results: Most Recent Lab Values WBC 8.8 K/uL (4.8-10.8) 07/19/17 06:53 RBC 2.62 Mil/uL (4.40-5.90) L 07/19/17 06:53 Hgb 9.3 g/dL (12.0-18.0) L 07/19/17 06:53 Hct 26.5 % (35.0-51.0) L 07/19/17 06:53 MCV 101.1 fL (80.0-94.0) H 07/19/17 06:53 MCH 35.5 pg (27.0-31.0) H 07/19/17 06:53 MCHC 35.1 g/dL (33.0-37.0) 07/19/17 06:53 RDW 15.5 % (11.5-14.5) H 07/19/17 06:53 Plt Count 121 K/uL (130-400) L 07/19/17 06:53 MPV 9.6 fL (7.2-11.7) 07/19/17 06:53 Neut % (Auto) 70.0 % (50.0-75.0) 07/19/17 06:53 Lymph % (Auto) 11.6 % (20.0-40.0) L 07/19/17 06:53 Spencer % (Auto) 13.5 % (0.0-10.0) H 07/19/17 06:53 Eos % (Auto) 3.9 % (0.0-4.0) 07/19/17 06:53 Baso % (Auto) 1.0 % (0.0-2.0) 07/19/17 06:53 Neut # 6.1 K/uL (1.8-7.0) 07/19/17 06:53 Lymph # 1.0 K/uL (1.0-4.3) 07/19/17 06:53 Spencer # 1.2 K/uL (0.0-0.8) H 07/19/17 06:53 Eos # 0.3 K/uL (0.0-0.7) 07/19/17 06:53 Baso # 0.1 K/uL (0.0-0.2) 07/19/17 06:53 PT 22.9 SECONDS (9.7-12.2) H 07/19/17 06:53 INR 2.0 07/19/17 06:53 APTT 31 SECONDS (21-34) D 07/15/17 13:46 Puncture Site Venous 07/13/17 20:13 pO2 53 mm/Hg (30-55) 07/13/17 20:13 Marcellus Test Na 07/13/17 20:13 VBG pH 7.47 (7.32-7.43) H 07/13/17 20:13 VBG pCO2 32 mmHg (40-60) L 07/13/17 20:13 VBG HCO3 24.9 mmol/L 07/13/17 20:13 VBG O2 Sat (Calc) 92.4 % (40-65) H 07/13/17 20:13 VBG Base Excess 0.3 mmol/L (0.0-2.0) 07/13/17 20:13 Sodium 132 mmol/L (132-148) 07/19/17 06:53 Potassium 4.3 mmol/L (3.6-5.2) 07/19/17 06:53 Chloride 102 mmol/L (98-107) 07/19/17 06:53 Carbon Dioxide 20 mmol/L (22-30) L 07/19/17 06:53 Anion Gap 14 (10-20) 07/19/17 06:53 BUN 25 mg/dL (9-20) H 07/19/17 06:53 Creatinine 0.8 MG/DL (0.8-1.5) 07/19/17 06:53 Est GFR ( Amer) > 60 07/19/17 06:53 Est GFR (Non-Af Amer) > 60 07/19/17 06:53 POC Glucose (mg/dL) 148 mg/dL (65-110) H 07/20/17 17:06 Random Glucose 112 mg/dL (75-110) H 07/19/17 06:53 Calcium 8.4 mg/dl (8.6-10.4) L 07/19/17 06:53 Total Bilirubin 2.1 mg/dL (0.2-1.3) H 07/19/17 06:53 AST 85 U/L (17-59) H D 07/19/17 06:53 ALT 57 U/L (21-72) 07/19/17 06:53 Alkaline Phosphatase 138 U/L (38-126) H 07/19/17 06:53 Ammonia 44 umol/L (9-33) H D 07/20/17 14:00 Total Creatine Kinase 52 U/L (55-170) L 07/14/17 06:12 CK-MB (Mass) 0.52 ng/mL (0.0-3.38) 07/14/17 06:12 Troponin I < 0.0120 ng/mL (0.00-0.120) 07/13/17 11:51 Troponin I, Quant < 0.0120 ng/mL (0.00-0.120) 07/14/17 06:12 NT-Pro-B Natriuret Pep 187 pg/mL (0-900) 07/13/17 11:51 Total Protein 6.0 g/dL (6.3-8.3) L 07/19/17 06:53 Albumin 2.3 g/dL (3.5-5.0) L 07/19/17 06:53 Globulin 3.6 gm/dL (2.2-3.9) 07/19/17 06:53 Albumin/Globulin Ratio 0.6 (1.0-2.1) L 07/19/17 06:53 Amylase 70 U/L (30-110) 07/13/17 11:51 Lipase 139 U/L (23-300) 07/13/17 11:51 Carcinoembryonic Ag 4.5 ng/mL (0-3.0) H 07/15/17 13:46 CA 19-9 Antigen 62.7 U/mL (0-37) H D 07/15/17 13:46 Urine Color Yellow (YELLOW) 07/13/17 17:22 Urine Clarity Clear (Clear) 07/13/17 17:22 Urine pH 7.0 (5.0-8.0) 07/13/17 17:22 Ur Specific [place] 1.008 (1.003-1.030) 07/13/17 17:22 Urine Protein Negative mg/dL (NEGATIVE) 07/13/17 17:22 Urine Glucose (UA) Normal mg/dL (Normal) 07/13/17 17:22 Urine Ketones Negative mg/dL (NEGATIVE) 07/13/17 17:22 Urine Blood Negative (NEGATIVE) 07/13/17 17:22 Urine Nitrate Negative (NEGATIVE) 07/13/17 17:22 Urine Bilirubin Negative (NEGATIVE) 07/13/17 17:22 Urine Urobilinogen Normal mg/dL (0.2-1.0) 07/13/17 17:22 Ur Leukocyte Esterase Neg Devante/uL (Negative) 07/13/17 17:22 Urine RBC (Auto) < 1 /hpf (0-3) 07/13/17 17:22 Urine Bacteria Rare (<OCC) 07/13/17 17:22 - Hospital Course Hospital Course: A/P 77 yr old male admitted for syncope/ s/p fall/ CHF s/p paracentesis yesterday s/p EGD today - ( see full report for details) hgb stable Patient accepted at [facility] for rehab stable for discharge to [facility] and I will follow the patient at [facility] Discharge plan discussed with patient Discharge Exam - Head Exam Head Exam: ATRAUMATIC, NORMAL INSPECTION, NORMOCEPHALIC - Eye Exam Eye Exam: EOMI, Normal appearance, PERRL Pupil Exam: NORMAL ACCOMODATION, PERRL - ENT Exam ENT Exam: Mucous Membranes Moist - Respiratory Exam Respiratory Exam: Decreased Breath Sounds, Rales - Cardiovascular Exam Cardiovascular Exam: REGULAR RHYTHM, +S1, +S2 - GI/Abdominal Exam GI & Abdominal Exam: Normal Bowel Sounds Discharge Plan - Discharge Medications Prescriptions: Metoclopramide HCl [Reglan] 10 mg PO Q8 PRN #30 tablet PRN Reason: Nausea/Vomiting - Follow Up Plan Condition: FAIR Disposition: AGAINST MEDICAL ADVICE Instructions: Heart Failure (DC), Heart Healthy Diet (DC), Upper Endoscopy (DC) , Abdominal Paracentesis (DC), Hypertension (DC) Additional Instructions: PLEASE ADMIT PATIENT UNDER DR. DYLAN SERVICE - CALL DR. MCCABE UPON PATIENT ARRIVAL TO THE FLOOR PLEASE REPEAT CBC, CMP ON WEDNESDAY AND Q MONDAYS CONTINUE MEDICATION PER MED REC Referrals: Santhosh Mccabe MD [Staff Provider] -
--- NOTE | 2017-07-26 21:42 | CARD ---
APPROVED REPORT EKG Measurement Heart [id number] <Conclusion> Normal sinus rhythm Low voltage QRS Inferior infarct, age undetermined Cannot rule out Anterior infarct, age undetermined Abnormal ECG
== END 2017-07-20 18:19 | disposition left against medical advice (07) | DRG 433 ==
LOC: C.ER 10:44 → C.9E 13:28 → C.6T 16:47 → OBSVTOIN 07-14 19:56 → C.6T 07-17 14:26
PROVIDERS: ADMIT Internal Medicine; ATTEND Internal Medicine
PROC: 0W9G3ZZ Drainage of Peritoneal Cavity, Percutaneous Approach (ICD-10-PCS; principal; 2017-07-19)
PROC: 0DJ08ZZ Inspection of Upper Intestinal Tract, Via Natural or Artificial Opening Endoscopic (ICD-10-PCS; 2017-07-20)
DX: K70.31 Alcoholic cirrhosis of liver with ascites (principal); I85.10 Secondary esophageal varices without bleeding; D61.818 Other pancytopenia; E87.2 Acidosis; D68.4 Acquired coagulation factor deficiency; K72.90 Hepatic failure, unspecified without coma; K76.6 Portal hypertension; I11.0 Hypertensive heart disease with heart failure; I50.9 Heart failure, unspecified; E86.0 Dehydration; D63.8 Anemia in other chronic diseases classified elsewhere; E11.9 Type 2 diabetes mellitus without complications; E78.5 Hyperlipidemia, unspecified; F17.200 Nicotine dependence, unspecified, uncomplicated; K44.9 Diaphragmatic hernia without obstruction or gangrene; K64.8 Other hemorrhoids; N40.0 Benign prostatic hyperplasia without lower urinary tract symptoms; Z91.81 History of falling; Z87.01 Personal history of pneumonia (recurrent); Z68.22 Body mass index [BMI] 22.0-22.9, adult; K29.00 Acute gastritis without bleeding; I27.20 Pulmonary hypertension, unspecified; Z87.891 Personal history of nicotine dependence